=== PATIENT | female | born 1955 | race Caucasian/White ===

== ENCOUNTER → 2019-09-09 15:27 | Outpatient (CLI) | payer MEDICARE, SELFPAY ==
--- NOTE | ~2019-09-09 | MR_ITS ---
EXAMINATION: MR brain IAC wo/w con DATE: 09/09/2019 17:14 INDICATION: Dizziness and giddiness. TECHNIQUE: Magnetic resonance imaging (MRI) of the brain, brainstem, and internal auditory canals was performed without and with 15 mL MultiHance intravenous contrast. Sequences included sagittal and ax ial T1-weighted FSE, axial diffusion-weighted FS EPI, axial T2*-weighted GRE, axial T2-weighted FLAIR Propeller, axial T2-weighted Propeller, small kvoty-ix-uvvt coronal FIESTA, small zgwqx-ae-sjwh prem nal T1-weighted FSE, and small saaej-zj-oean axial T1-weighted SPGR. Postcontrast sequences included axial T1-weighted FSE, small cahkq-mu-iial coronal T1-weighted FSE, and small szjgx-ri-btmd axial T1- weighted SPGR. Apparent diffusion coefficient (ADC) maps were created. COMPARISON: None. FINDINGS: There are scattered areas of nonspecific increased T2-weighted signal intensity in the cere bral white matter, which is within normal limits for the patient's age. There is no intracranial hemo rrhage, acute infarction, or abnormal intracranial mass lesion. The ventricles are normal in size. Th ere is mild mucosal thickening in the ethmoid sinuses. The orbits are normal. The internal auditory c anals and inner ears are normal. There is a trace left mastoid effusion. IMPRESSION: 1. Normal aging brain. Reviewed, dictated and finalized at location A. GER STUDY IMPRESSION: 1. Normal aging brain.
[2019-09-09 16:17] LABS: Blood Urea Nitrogen 14 mg/dL (8-26); Estimated Glomerular Filt Rate > 60
== END ==
PROVIDERS: PCP Family Medicine; Visit Provider Otolaryngology
DX: R42 Dizziness and giddiness (principal)
CPT/HCPCS: 70553; A9577

== ENCOUNTER → 2020-10-27 09:45 | Outpatient (CLI) | payer MEDICARE, SELFPAY ==
--- NOTE | ~2020-10-27 | MR_ITS ---
EXAMINATION: MR shoulder RT wo con DATE: 10/27/2020 10:49 INDICATION: Right shoulder pain radiating down the right arm TECHNIQUE: Magnetic resonance imaging (MRI) of the right shoulder was performed without intravenous c ontrast. Sequences included axial PD-weighted FS FSE, coronal oblique PD-weighted FS FSE, coronal obl ique T2-weighted FS FSE, sagittal PD-weighted FS FSE, and sagittal T1-weighted SE. COMPARISON: None. FINDINGS: Mild motion artifact or blurring on a few sequences. Coracoacromial arch: The acromion undersurface is curved in morphology (type II). The coracoacromial ligament is normal. M oderate acromioclavicular osteoarthritis. Rotator cuff: Moderate supraspinatus and mild infraspinatus tendinopathy without discrete tear. The teres minor ten don is normal. Mild subscapularis tendinopathy without discrete tear. Normal rotator cuff muscle bulk and signal. Biceps tendon, glenoid labrum and glenohumeral cartilage: Long head of the biceps tendon is normal. Glenoid labrum is normal. Glenohumeral cartilage is normal. Fluid: Physiologic amount of fluid in the glenohumeral joint and biceps tendon sheath. No loose osteochondra l bodies. Small amount of fluid in the subcoracoid bursa consistent with mild bursitis. Bones: Normal marrow signal with no edema, fracture or abnormal marrow replacing process. Mild cystic change at the anterior and posterior aspect of the greater tuberosity. IMPRESSION: 1. Moderate supraspinatus and mild infraspinatus and subscapularis tendinopathy without discrete tear . 2. Moderate acromioclavicular osteoarthritis. 3. Mild subcoracoid bursitis. Reviewed, dictated and finalized at location A. IMPRESSION: 1. Moderate supraspinatus and mild infraspinatus and subscapularis tendinopathy without discrete tear. 2. Moderate acromioclavicular osteoarthritis. 3. Mild subcoracoid bursitis.
== END ==
DX: M19.011 Primary osteoarthritis, right shoulder (principal); M75.51 Bursitis of right shoulder
CPT/HCPCS: 73221

== ENCOUNTER → 2021-06-13 08:53 | Outpatient (REF) | payer MEDICARE, SELFPAY | LOC: ANHLAB 08:53 | PROVIDERS: Visit Provider Nurse Practitioner | DX: L72.0 Epidermal cyst (principal) | CPT/HCPCS: 88304 ==

== ENCOUNTER 2022-04-26 08:08 | Outpatient (CLI) | payer MEDICARE, SELFPAY ==
--- NOTE | ~2022-04-26 | MR_ITS ---
EXAMINATION: MR lumbar spine wo con DATE: 04/26/2022 08:55 INDICATION: Chronic low back pain. TECHNIQUE: Magnetic resonance imaging (MRI) of the lumbar spine was performed without intravenous con trast. Sequences included sagittal T2-weighted FSE, sagittal T2-weighted FS FSE, sagittal T1-weighted FSE, and axial T2-weighted FSE. COMPARISON: None FINDINGS: There is 11 degrees dextroscoliosis of lumbar spine. There is 5 mm retrolisthesis of L1 on L2, 4 mm retrolisthesis of L2 on L3, and 2 mm anterolisthesis of L3 on L4 and L4 on L5. Vertebral bod y heights are normal. There is severely decreased disc height at L1-L2, moderately decreased disc hei ght at L2-L3, and mildly decreased disc height at L3-L4 and L4-L5. The distal spinal cord signal inte nsity is normal. The conus medullaris is at T12-L1. The following disc levels are specifically discus sed: L1-L2: The disc is bulging. There is severe bilateral facet joint osteoarthritis. There is moderate r ight and severe left neural foraminal stenosis. There is mild central canal stenosis. L2-L3: The disc is bulging. There is moderate bilateral facet joint osteoarthritis. There is moderate bilateral neural foraminal stenosis. There is mild central canal stenosis. L3-L4: The disc is bulging and has an annular fissure. There is severe bilateral facet joint osteoart hritis. There is mild bilateral neural foraminal stenosis. There is mild central canal stenosis. L4-L5: The disc is bulging and has an annular fissure. There is severe bilateral facet joint osteoart hritis. There is moderate bilateral neural foraminal stenosis. There is moderate central canal stenos is. L5-S1: The disc is bulging and has an annular fissure. There is severe bilateral facet joint osteoart hritis. There is mild bilateral neural foraminal stenosis. There is mild central canal stenosis. IMPRESSION: 1. Severe lumbar spondylosis. 2. Lumbar dextroscoliosis. Reviewed, dictated and finalized at location A.
== END 2022-04-26 08:09 ==
PROVIDERS: PCP Family Medicine
DX: M47.817 Spondylosis without myelopathy or radiculopathy, lumbosacral region (principal); M48.07 Spinal stenosis, lumbosacral region; M41.9 Scoliosis, unspecified
CPT/HCPCS: 72148

== ENCOUNTER → 2023-05-13 15:40 | Outpatient (CLI) | payer MEDICARE, SELFPAY ==
--- NOTE | ~2023-05-13 | XR_ITS ---
EXAMINATION: XR hand BI arthritis min 3V DATE: 05/13/2023 16:19 INDICATION: Primary osteoarthritis TECHNIQUE: Posteroanterior, lateral, and oblique views of the left and of the right hands as well as a ballcatchers view of both hands were obtained. COMPARISON: None. FINDINGS: Left hand: Bone alignment is normal. There is no fracture. There is advanced osteoarthritis at the fi fth distal interphalangeal joint. Uzgm-ra-joambzyz osteoarthritis is noted in multiple additional int erphalangeal joints. There is mild osteoarthritis at the first metacarpophalangeal joint. No abnormal erosions are identified. The soft tissues are unremarkable. Right hand: There is advanced osteoarthritis at the third, fourth, and fifth distal interphalangeal j oints. There are erosions in the third middle phalanx and third distal phalanx abutting the joint spa ce. There is no fracture. There is mild to moderate osteoarthritis and multiple additional interphala ngeal joints. Mild osteoarthritis is noted at the first metacarpophalangeal joint. The soft tissues a re unremarkable. IMPRESSION: 1. Polyarticular osteoarthritis, worst in the third through fifth distal interphalangeal joints of th e right hand and the fifth distal interphalangeal joint of the left hand. Reviewed, dictated and finalized at location F. IMPRESSION: 1. Polyarticular osteoarthritis, worst in the third through fifth distal interp halangeal joints of the right hand and the fifth distal interphalangeal joint o f the left hand.
== END ==
PROVIDERS: PCP Physician Assistant; Visit Provider Physician Assistant
DX: M15.9 Polyosteoarthritis, unspecified (principal)
CPT/HCPCS: 73130

== ENCOUNTER 2023-10-27 12:51 | Outpatient (CLI) | payer MEDICARE, SELFPAY ==
--- NOTE | ~2023-10-27 | MR_ITS ---
EXAMINATION: MR lumbar spine wo con DATE: 10/27/2023 13:29 INDICATION: Left-sided low back pain. TECHNIQUE: Magnetic resonance imaging (MRI) of the lumbar spine was performed without intravenous con trast. Sequences included sagittal T2-weighted FSE, sagittal T2-weighted FS FSE, sagittal T1-weighted FSE, and axial T2-weighted FSE. COMPARISON: Lumbar spine MRI 04/26/2022 FINDINGS: There is 16 degrees dextroscoliosis of lumbar spine. There is 5 mm retrolisthesis of L1 on L2 and L2 on L3. There is 3 mm anterolisthesis of L4 on L5. Vertebral body heights are normal. There is severely decreased disc height at L1-L2 and L2-L3 and mildly decreased disc height at L3-L4 and L4 -L5. The distal spinal cord signal intensity is normal. The conus medullaris is at L1. The following disc levels are specifically discussed: L1-L2: The disc is bulging. There is severe bilateral facet joint osteoarthritis. There is moderate r ight and severe left neural foraminal stenosis. There is mild central canal stenosis. L2-L3: The disc is bulging and has an annular fissure. There is severe right and moderate left facet joint osteoarthritis. There is moderate bilateral neural foraminal stenosis. There is mild central ca nal stenosis. L3-L4: The disc is bulging and has an annular fissure. There is severe bilateral facet joint osteoart hritis. There is mild bilateral neural foraminal stenosis. There is moderate central canal stenosis. L4-L5: The disc is bulging and has an annular fissure. There is severe bilateral facet joint osteoart hritis. There is moderate bilateral neural foraminal stenosis. There is moderate central canal stenos is. L5-S1: The disc is bulging. There is severe bilateral facet joint osteoarthritis. There is mild bilat eral neural foraminal stenosis. There is mild central canal stenosis. IMPRESSION: 1. Severe lumbar spondylosis, worsened at L2-L3 from 04/26/2022. 2. Lumbar dextroscoliosis. Reviewed, dictated and finalized at location A.
== END 2023-10-27 12:52 ==
LOC: MICIMG 12:52
PROVIDERS: PCP Family Medicine
DX: M47.896 Other spondylosis, lumbar region (principal)
CPT/HCPCS: 72148

== ENCOUNTER 2024-11-09 00:18 | Day surgery (SDC) | payer MEDICARE, SELFPAY ==
[2024-11-02 10:04] VITALS: BMI 30.4
--- OUTSIDE RECORDS SUMMARY | 2024-11-09 00:21 | XMS_ITS | Encounter Summary ---
Author Organization [facility] Address [address] [place] [address] Care Team Providers Care Water Treatment Specialist Name Role Phone Casey Dudley MD Primary Care Provider [phone] Encounter Details Date Type Department Care Team (Late st Contact Info) Description 06/12/2005 Outpatient Historical [facility] 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 Gender Identity Not on file Sexual Orientation Not on file documented as of this encounter Plan of Treatment Upcoming Encounters Date Type Department Care Team (Late st Contact Info) Description 10/24/2025 10:30 AM CDT Office Visit [facility] [address] [place] [address] [place] [id number] Amol Sharma MD [address] [place] [address] documented as of this encounter Visit Diagnoses Not on filedocumented in this encounter Care Teams Water Treatment Specialist Relationship Specialty Start Date End Date Casey Dudley MD PCP - General Family Practice 10/15/11 documented as of this encounter
--- OUTSIDE RECORDS SUMMARY | 2024-11-09 00:21 | XMS_ITS | Encounter Summary ---
Author Organization [facility] Address [address] [place] [address] Care Team Providers Care Machine Binder Stripper Name Role Phone Casey Dudley MD Primary Care Provider [phone] Encounter Details Date Type Department Care Team (Late st Contact Info) Description 06/11/2005 Outpatient Historical [facility] [address] 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 Gender Identity Not on file Sexual Orientation Not on file documented as of this encounter Plan of Treatment Upcoming Encounters Date Type Department Care Team (Late st Contact Info) Description 10/24/2025 10:30 AM CDT Office Visit [facility] [address] [place] [address] [address] [place] [address] Amol Sharma MD [address] [place] [address] documented as of this encounter Visit Diagnoses Not on filedocumented in this encounter Care Teams Machine Binder Stripper Relationship Specialty Start Date End Date Casey Dudley MD PCP - General Family Practice 10/15/11 documented as of this encounter
--- OUTSIDE RECORDS SUMMARY | 2024-11-09 00:21 | XMS_ITS | Referral Summary ---
Author Organization [facility] Address [address] [place] [address] Care Team Providers Care School Bus Driver/Mechanic Name Role Phone Casey Dudley MD Primary Care Provider Encounters Date Type Department Care Team Description 10/25/2024 Telephone [facility] Scheduling [address] [place] [address] Romana Davidson 08/16/2024 3:00 PM BILINGUAL SOCIAL WORKER Office Visit [facility] Neurosurgery [address] [facility] [address] [place] [address] Amol Mattson DO Spinal stenosis of lumbar region with neurogenic claudication (Primary Dx); Foraminal stenosis of lumbar region; Lumbar pain; Weakness of right lower extremity from Last 3 Months Allergies Active Allergy Reactions Criticality Noted Date Comments Diclofenac Blisters High 02/20/2023 Medications atorvastatin (LIPITOR) 20 mg tabletIndication s:hyperlipidemia Take 1 tablet (20 mg total) by mouth every morning 9 Active dilTIAZem XR (dilTIAZem XR) 240 mg 24 hr capsuleIndicatio ns:Angina,hypert ension Take 1 capsule (240 mg total) by mouth every morning 8 Active enalapril (VASOTEC) 5 mg tabletIndication s:hypertension Take 1 tablet (5 mg total) by mouth every morning 8 Active omeprazole (PriLOSEC) 20 mg capsuleIndicatio ns:Treatment of Non-Bleeding Gastric Disorder Take 1 capsule (20 mg total) by mouth every morning 2 9 Active turmeric, bulk, 95 % powderIndication s:supplement 1 Package daily as needed (supplement) Alternating with chew tab Active THYROID, BULK, MISCIndications: Actalin thyroid supplement 1 capsule 2 (two) times a day Active aspirin (ASPIR-81 ORAL)Indications :heart health & history of [place] Take 81 mg by mouth every morning Active methocarbamoL (ROBAXIN) 500 mg tabletIndication s:Muscle Spasm Take 1 tablet (500 mg total) by mouth 3 (three) times a day as needed for muscle spasms 4 Active mupirocin (BACTROBAN) 2 % ointmentIndicati ons:Methicillin- Resistant S. Aureus Nasal Colonization Apply to each nostril 2 (two) times a day Apply pea size amount into each nostril twice a day for 5 days prior to surgery. 22 g 4 Active TURMERIC ORALIndications: supplement Take 1 tablet/chew tab by mouth daily as needed (supplement) Alternating with powder Active ibuprofen-acetam inophen 125-250 mg tabletIndication s:Pain,trigemina l neurolgia Take 1 tablet by mouth 2 (two) times a day as needed (pain) Active gabapentin (NEURONTIN) 600 mg tablet Take 1.5 tablets (900 mg total) by mouth 3 (three) times a day 405 tablet 3 4 04/26/20 25 Active Additional Information Patient taking differently:900 mg oral 3 times daily,Indications: Neuropathic Pain, trigeminal neurolgia, Informant: Self, Reported on 06/15/2024 multivitamin tabletIndication s:Vitamin Deficiency Prevention Take 1 tablet by mouth civil preparedness training officer before breakfast Active cyclobenzaprine (FLEXERIL) 10 mg tabletIndication s:Muscle Spasm Take 1 tablet (10 mg total) by mouth 2 (two) times a day as needed for muscle spasms for muscle spasms 30 tablet 2 5 Active Active Problems Problem Noted Date Diagnosed Date Moderate protein-calorie malnutrition 04/15/2024 Overview (04/15/2024): Acute d/t trigeminal neuralgia Weakness of right lower extremity 03/10/2024 Spinal stenosis of lumbar re gion with neurogenic claudication 03/10/2024 Foraminal stenosis of lumbar region 03/10/2024 Impaired fasting glucose 03/23/2023 Pablito's thyroiditis 12/15/2022 Prediabetes 12/15/2022 Impacted cerumen of right ear 08/13/2021 Benign paroxysmal positional vertigo of left ear 08/08/2020 [place] (myocardial infarction) 02/27/2020 0 12/11/2022 Overview (12/11/2022): MIs with no sign obsruc ds on caths 2001, 2004 No sign obsruc ds, nl LV fxn cath (after abnormal stress test) 2008 Nl LV fxn echo 11/11 Dizzy 01/04/2020 Asymmetric SNHL (sensorineural hearing loss) 10/2019 Trigeminal neuralgia of right side of face 01/03 TMJ syndrome 01/04/2020 Cervicalgia 01/04/2020 Hyperlipemia 03/17/2019 Hypertension 03/17/2019 Type 2 diabetes mellitus 10/25/2018 History of myocardial infarction 02/17/2017 Overview (03/17/2019): MIs with no sign obsruc ds on caths 2001, 2004 Large area anterior ischemia, nl LV fxn stress 08/11 No sign obsruc ds, nl LV fxn cath 09/11 Nl LV fxn echo 11/11 Immunizations Immunization Administration Dates Next Due Influenza, Quadrivalent, Spl it, Preservative Free, Intramuscular 05/29/2017 Influenza, Trivalent, Adjuvanted, Intramuscular 05/17/2019 Influenza, Trivalent, IM (MDV) 08/06/2015 ZOSTER LIVE 05/29/2017 Social History Tobacco Use Types Packs/Day Years Used Date Smoking Tobacco: Never Passive Smoke Exposure: Past Smokeless Tobacco: Never Tobacco Cessation:Counseling Given: Not Answered Alcohol Use Standard Drinks/Week Comments Yes 0 (1 standard drink = 0.6 oz pur e alcohol) AUDIT-C Answer Date Recorded Q1: How often do you have a drink containing alc ohol? 2-4 times a month 08/16/2024 Q2: How many drinks containi ng alcohol do you have on a typical day when you are drinking? 1 or 2 08/16/2024 Q3: How often do you have si x or more drinks on one occasion? Never 08/16/2024 Personal Safety Answer Date Recorded Have you ever been in or are you currently in a harmful physical or emotional relationship or is someone making you feel afraid or unsafe? Denies 06/15/2024 Comments No Sex and Gender Information Value Date Recorded Sex Assigned at Not on file Legal Sex Female 7:02 AM BILINGUAL SOCIAL WORKER Gender Identity Not on file Sexual Orientation Not on file Last Filed Vital Signs Vital Sign Reading Time Taken Comments Blood Pressure 117/93 06/15/2024 12:20 PM BILINGUAL SOCIAL WORKER Pulse 65 06/15/2024 12:20 PM BILINGUAL SOCIAL WORKER Temperature 36 C (96.8 F) 06/15/2024 11:30 AM BILINGUAL SOCIAL WORKER Respiratory Rate 13 06/15/2024 12:20 PM BILINGUAL SOCIAL WORKER Oxygen Saturation 100% 06/15/2024 12:20 PM BILINGUAL SOCIAL WORKER Inhaled Oxygen Concentration - - Weight 84.8 kg (187 lb) 06/15/2024 8:03 AM BILINGUAL SOCIAL WORKER Height 172.7 cm (5' 8 ) 06/02/2024 10:40 AM CDT Body Mass Index 28.43 06/02/2024 10:40 AM CDT Plan of Treatment Not on file Procedures Procedure Name Priority Date/Time Associated Diagnosis Comments EGFR Routine 04/11/2024 12:09 PM CDT Spinal stenosis of lumbar region with neurogenic claudication from Last 3 Months or Most Recently Relevant to Health Maintenance Results * eGFR (04/11/2024 12:09 PM CDT) eGFR 68 >=60 mL/min/1. 73 m2 Comment: Interpretive Data Reference Interval Normal >/= 90 mL/min/1.73m2 Mildly decreased* 60 - 89 mL/min/1.73m2 Mildly to moderately decreased 45 - 59 mL/min/1.73m2 Moderately to severely decreased 30 - 44 mL/min/1.73m2 Severely decreased 15 - 29 mL/min/1.73m2 Kidney Failure < 15 mL/min/1.73m2 *Relative to young adult level Estimated glomerular filtration rate is determined by the 2020 CKD-EPI equation recommended by the National Kidney Foundation (A Unifying Approach to GFR Estimation: Recommendations of the NKF-ASK Task Force on Reassessing the Inclusion of Race in Diagnosing Kidney Disease, JASN 2020). The CKD-EPI equation should not be used for patients with unstable renal function and has not been validated in children and those over 70. Current interpretive data was last reviewed 2021. Blood 04/11/2024 12:0 9 PM CDT 04/11/2024 12:48 PM CDT Amol Mattson DO LAB BLOOD ORDERABLES Final Resu lt [facility] Department [place] [address] from Last 3 Months or Most Recently Relevant to Health Maintenance Insurance [facility] MEDICARE [facility] MEDICARE ADVANTAGE [employer] MEDICARE Care Teams School Bus Driver/Mechanic Relationship Specialty Start Date End Date Casey Dudley MD [address] [facility] [address] [place] [address] PCP - General 01/22/17
--- OUTSIDE RECORDS SUMMARY | 2024-11-09 00:21 | XMS_ITS | Encounter Summary ---
Author Organization [facility] Address 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 [address] [employer] Amol Rodriguez MD [place] [address] [facility] [address] [place] [address] Other and Unspecified Angina Pectoris Social History Tobacco Use Types Packs/Day Years Used Date Smoking Tobacco: Never Assessed Comments No Sex and Gender Information Value Date Recorded Sex Assigned at Not on file Legal Sex Female 4:26 AM OPTICAL ASSISTANT Gender Identity Not on file Sexual Orientation Not on file documented as of this encounter Plan of Treatment Upcoming Encounters Date Type Department Care Team (Late st Contact Info) Description 10/24/2025 10:30 AM CDT Office Visit [facility] [address] [facility] [address] [place] [address] Amol Sharma MD [address] [place] [address] documented as of this encounter Procedures Procedure Name Priority Date/Time Associated Diagnosis Comments CBC WITH DIFFERENTIAL Stat 09/15/2008 11:12 AM OPTICAL ASSISTANT PROTIME-INR Stat 09/15/2008 11:12 AM OPTICAL ASSISTANT BASIC METABOLIC PANEL Stat 09/15/2008 11:12 AM OPTICAL ASSISTANT documented in this encounter Results * PROTIME-INR (09/15/2008 11:12 AM OPTICAL ASSISTANT) PROTIME 13.3 12.7 - 15.1 Seconds [facility] INR 1.0 0.9 - 1.1 [facility] Comment: INR Therapeutic Range: Adult: 2.0 - 3.0 for pulmonary embolism or prophylaxis against venous thrombosis or systemic embolization. 2.0 - 3.0 for patients with tissue heart valves. 2.5 - 3.5 for patients with mechanical heart valves or post [place]. Pediatric (12 years and under): 1.5 - 3.0 Although the target range in children is not well established, INR values of 1.5 - 3.0 are recommended for most patients. Higher values have been used in children with prosthetic cardiac valves and hereditary clotting disorders. [place] (<3 days) therapeutic ranges have not been established. Blood specimen (specimen) 09/15/2008 11:12 AM OPTICAL ASSISTANT 09/15/2008 11:27 AM OPTICAL ASSISTANT Amol Rodriguez MD HEMATOLOGY ORDERABLES Final Resu lt INTERFACE SYSTEM Refer to clinic/hospital department [facility] CLIA# [id number] [address] [facility] [place] [address] * BASIC METABOLIC PANEL (09/15/2008 11:12 AM OPTICAL ASSISTANT) Pathologist [facility] CALCIUM 9.2 8.6 - 10.2 mg/dL [facility] POTASSIUM 4.0 3.5 - 4.9 mmol/L [facility] GLUCOSE 98 65 - 99 mg/dL [facility] BUN 11 6 - 20 mg/dL [facility] CHLORIDE 104 96 - 108 mmol/L [facility] SODIUM 138 135 - 145 mmol/L [facility] CREATININE 0.83 0.51 - 0.95 mg/dL [facility] CO2 28 22 - 30 mmol/L [facility] GFR, >60 >=60 mL/min/1.7 sq meter [facility] GFR >60 >=60 mL/min/1.7 sq meter [facility] Comment: Modification of Diet in Renal Disease (MDRD) study formula. Estimated GFR rate interpretative information for both Americans and non- Americans is available on the [facility] Intranet at: [email or web address] Select: Lab Policies and Procedures Select: Reference Ranges - GFR Blood specimen (specimen) 09/15/2008 11:12 AM OPTICAL ASSISTANT 09/15/2008 11:27 AM OPTICAL ASSISTANT Amol Rodriguez MD CHEMISTRY ORDERABLES Edited INTERFACE SYSTEM Refer to clinic/hospital department [facility] CLIA# [id number] [address] [facility] [address] [address] [place] [place], [place] [address] * CBC WITH DIFFERENTIAL (09/15/2008 11:12 AM OPTICAL ASSISTANT) MCHC 33.5 31.5 - 35.5 % [facility] MCV 85.8 82.0 - 99.0 fL [facility] PLATELETS 270 140 - 350 K/uL [facility] HEMOGLOBIN 13.2 11.8 - 14.8 g/dL [facility] RDW 13.5 11.5 - 14.5 % [facility] WBC 5.7 4.0 - 9.8 K/uL [facility] MCH 28.8 27.2 - 32.6 pg [facility] MPV 9.7 9.3 - 12.4 fL [facility] HEMATOCRIT 39.4 35.5 - 44.0 % [facility] RDW-STDEV 41.5 37.1 - 48.7 fL [facility] RBC 4.59 3.90 - 4.90 M/uL [facility] NEUTROPHILS 60 45 - 70 % [facility] NEUTROPHIL ABSOLUTE 3.37 1.90 - 7.00 K/uL [facility] EOSINOPHILS 2 0 - 7 % [facility] EOSINOPHIL ABSOLUTE 0.13 0.00 - 0.70 K/uL [facility] LYMPHOCYTES 31 16 - 45 % [facility] LYMPHOCYTE ABSOLUTE 1.76 0.70 - 4.50 K/uL [facility] BASOPHILS 1 0 - 2 % [facility] BASOPHILS ABSOLUTE 0.03 0.00 - 0.20 K/uL [facility] MONOCYTES 7 3 - 13 % [facility] MONOCYTE ABSOLUTE 0.37 0.10 - 1.30 K/uL [facility] Blood specimen (specimen) 09/15/2008 11:12 AM OPTICAL ASSISTANT 09/15/2008 11:27 AM OPTICAL ASSISTANT Amol Rodriguez MD HEMATOLOGY ORDERABLES Edited INTERFACE SYSTEM Refer to clinic/hospital department [facility] CLIA# [id number] [address] [place] [address] documented in this encounter Visit Diagnoses Diagnosis Other and unspecified angina pectoris documented in this encounter Care Teams Polisher Sand Relationship Specialty Start Date End Date Casey Dudley MD PCP - General Family Practice 10/15/11 documented as of this encounter
--- OUTSIDE RECORDS SUMMARY | 2024-11-09 00:21 | XMS_ITS | Data Portability ---
Author Organization [place] - [facility] [place], Main Office Address [address] [place] [address] Care Team Providers Care Skilled Nursing Professional Name Role Phone ESHA PETERSON Primary Care Provider Assessment No assessment recorded. Plan of Treatment Reminders Order Date Submit Date Provider Last Modified By Organization Details Last Modified Time Details Appointments None record ed. Lab None record ed. Referral None record ed. Procedures None record ed. Surgeries None record ed. Imaging None record ed. Medication Orders None record ed. Patient TargetsNo targets recorded. Patient InstructionsNo instructions recorded. Reason for Referral None Reported. Results Created Date Observation Date Name Description Value Unit Range Abnormal Flag Note LastModifiedBy Organization Detail LastModifiedTime 09/10/19 22 09/11/2021 HEMOG LOBIN A1C hemoglobin A1C 5.9 %_of_ total _HGB <5.7 high Not Available [email or web address] [address] [place], [address], 09/11/2021 16:58:19 09/10/19 22 09/11/2021 HEMOG LOBIN A1C copy(ies) sent to: [facility] [place] [facility] ADMN [address] [place] [address] FAMIL Y PRACT ICE BARNE TT & AGUSTÍN [address] [place] [address] Not Available [email or web address] [address] [place], [address], 09/11/2021 16:58:19 09/10/19 22 09/11/2021 T3, FREE T3, free 3.0 pg/mL 2.3-4. 2 normal Not Available [place] [address] [address] [place], [address], 09/11/2021 16:58:19 09/10/19 22 09/11/2021 T3, FREE copy(ies) sent to: [facility] CIAN [facility] LINDA [facility] ADMN [address] [place] [address] FAMIL Y PRACT ICE BARNE TT & AGUSTÍN [address] [place] [address] Not Available [facility] [place] [address] [place], [address], 09/11/2021 16:58:19 09/10/19 22 09/11/2021 VITAM IN B12/F OLATE , SERUM PANEL vitamin B12 478 pg/mL 200-11 00 normal Not Available [address] [address] [place], [address], 09/11/2021 16:58:18 09/10/19 22 09/11/2021 VITAM IN B12/F OLATE , SERUM PANEL folate, serum 21.4 NG/mL normal Refer ence Range Low: <3.4 Borde rline : 3.4-5 .4 Princess l: >5.4 Not Available [address] [address] [place], [address], 09/11/2021 16:58:18 09/10/19 22 09/11/2021 VITAM IN B12/F OLATE , SERUM PANEL copy(ies) sent to: [facility] [facility] ADMN [address] [place] [address] FAMIL Y PRACT ICE BARNE TT & AGUSTÍN [address] [place] [address] Not Available [facility] [place] [address] [place], [address], 09/11/2021 16:58:18 09/10/19 22 09/11/2021 INSUL IN insulin 20.1 uIU/m L high Refer ence Range < or = 19.6 Risk: Optim al < or = 19.6 Moder ate NA High >19.6 Adult cardi ovasc ular event risk categ ory cut point s (opti mal, moder ate, high) are based on [facility] popul ation data from 07/22 11. This insul in assay shows stron g cross -reac tivit y for some insul in analo gs (lisp ro, aspar t, and glarg ine) and much lower cross -reac tivit y with other s (dete nel, gluli sine) . Not Available [email or web address] [place] [address] [place], [address], 09/11/2021 16:58:18 09/10/19 22 09/11/2021 INSUL IN copy(ies) sent to: [facility] [facility] LINDA IJGAR [facility] ADMN [address] [facility] [place] [address] FAMIL Y PRACT ICE BARNE TT & AGUSTÍN [address] [place] [address] Not Available [email or web address] [address] [place], [address], 09/11/2021 16:58:18 09/10/19 22 09/11/2021 THYRO ID PEROX IDASE ANTIB ODIES thyroid peroxidase antibodies <1 IU/mL <9 normal Not Available [email or web address] [place] [address] [address] [place], [address], 09/11/2021 16:58:18 09/10/19 22 09/11/2021 THYRO ID PEROX IDASE ANTIB ODIES copy(ies) sent to: [facility] [place] [facility]ON [facility]I LIDNA [facility] ADMN [address] [place] [address] FAMIL Y PRACT ICE BARNE TT & AGUSTÍN [address] [place] [address] Not Available [address] [address] [place], [address], 09/11/2021 16:58:18 09/10/19 22 09/11/2021 COMPR EHENS STEVE METAB OLIC PANEL glucose 109 mg/dL 65-99 high Fasti ng refer ence inter mark For someo ne witho ut known diabe andrew, a gluco se value betwe en 100 and 125 mg/dL is consi stent with predi abete s and shoul d be confi rmed with a follo w-up test. Not Available [address], [address], 09/11/2021 16:58:17 09/10/19 22 09/11/2021 COMPR EHENS STEVE METAB OLIC PANEL urea nitrogen (BUN) 16 mg/dL 7-25 normal Not Available [address], [address], 09/11/2021 16:58:17 09/10/19 22 09/11/2021 COMPR EHENS STEVE METAB OLIC PANEL creatinine 0.70 mg/dL 0.50-0 .99 normal For patie nts >49 years of age, the refer ence limit for Creat inine is appro ximat digna 13% highe r for peopl e ident ified as Afric an-Am fadia n. Not Available [address] [address] [place], [address], 09/11/2021 16:58:17 09/10/19 22 09/11/2021 COMPR EHENS STEVE METAB OLIC PANEL eGFR non-afr. jamaican 89 mL/mi n/1.7 3m2 > or = 60 normal Not Available [facility] [place] [address] [address] [place], [address], 09/11/2021 16:58:17 09/10/19 22 09/11/2021 COMPR EHENS STEVE METAB OLIC PANEL eGFR 103 mL/mi n/1.7 3m2 > or = 60 normal Not Available [address], [address], 09/11/2021 16:58:17 09/10/19 22 09/11/2021 COMPR EHENS STEVE METAB OLIC PANEL BUN/creatini ne ratio not applic able (calc ) 6-22 Not Available [address], [address], 09/11/2021 16:58:17 09/10/19 22 09/11/2021 COMPR EHENS STEVE METAB OLIC PANEL sodium 139 mmol/ L 135-14 6 normal Not Available [address], [address], 09/11/2021 16:58:17 09/10/19 22 09/11/2021 COMPR EHENS STEVE METAB OLIC PANEL potassium 4.3 mmol/ L 3.5-5. 3 normal Not Available [address], [address], 09/11/2021 16:58:17 09/10/19 22 09/11/2021 COMPR EHENS STEVE METAB OLIC PANEL chloride 104 mmol/ L 98-110 normal Not Available [address], [address], 09/11/2021 16:58:17 09/10/19 22 09/11/2021 COMPR EHENS STEVE METAB OLIC PANEL carbon dioxide 29 mmol/ L 20-32 normal Not Available [address], [address], 09/11/2021 16:58:17 09/10/19 22 09/11/2021 COMPR EHENS STEVE METAB OLIC PANEL calcium 8.9 mg/dL 8.6-10 .4 normal Not Available [address], [address], 09/11/2021 16:58:17 09/10/19 22 09/11/2021 COMPR EHENS STEVE METAB OLIC PANEL protein, total 6.2 g/dL 6.1-8. 1 normal Not Available [address], [address], 09/11/2021 16:58:17 09/10/19 22 09/11/2021 COMPR EHENS TSEVE METAB OLIC PANEL albumin 4.0 g/dL 3.6-5. 1 normal Not Available [address], [address], 09/11/2021 16:58:17 09/10/19 22 09/11/2021 COMPR EHENS STEVE METAB OLIC PANEL globulin 2.2 g/dL_ (calc ) 1.9-3. 7 normal Not Available [address], [address], 09/11/2021 16:58:17 09/10/19 22 09/11/2021 COMPR EHENS STEVE METAB OLIC PANEL albumin/glob ulin ratio 1.8 (calc ) 1.0-2. 5 normal Not Available [address], [address], 09/11/2021 16:58:17 09/10/19 22 09/11/2021 COMPR EHENS STEVE METAB OLIC PANEL bilirubin, total 0.6 mg/dL 0.2-1. 2 normal Not Available [address], [address], 09/11/2021 16:58:17 09/10/19 22 09/11/2021 COMPR EHENS STEVE METAB OLIC PANEL alkaline phosphatase 52 U/L 37-153 normal Not Available [address], [address], 09/11/2021 16:58:17 09/10/19 22 09/11/2021 COMPR EHENS STEVE METAB OLIC PANEL AST 13 U/L 10-35 normal Not Available [address] [address] [place], [address], 09/11/2021 16:58:17 09/10/19 22 09/11/2021 COMPR EHENS STEVE METAB OLIC PANEL ALT 15 U/L 6-29 normal Not Available [address] [address] [place], [address], 09/11/2021 16:58:17 09/10/19 22 09/11/2021 COMPR EHENS STEVE METAB OLIC PANEL copy(ies) sent to: [facility] PHYSI ODILON SERVI LINDA [facility] J[facility] ADMN [address] [place] [address] FAMIL Y PRACT ICE BARNE TT & AGUSTÍN [address] [place] [address] Not Available [place] [address] [facility] [place], [address], 09/11/2021 16:58:17 09/10/19 22 09/11/2021 LIPID PANEL , STAND YAHIR non HDL cholesterol 107 mg/dL _(sari c) <130 normal For patie nts with diabe andrew plus 1 major ASCVD risk facto r, treat ing to a non-H DL-C goal of <100 mg/dL (LDL- C of <70 mg/dL ) is consi jaime tam optio n. Not Available [address] [address] [place], [address], 09/11/2021 16:58:17 09/10/19 22 09/11/2021 LIPID PANEL , STAND YAHIR cholesterol, total 169 mg/dL <200 normal Not Available [address] [address] [place], [address], 09/11/2021 16:58:17 09/10/19 22 09/11/2021 LIPID PANEL , STAND YAHIR HDL cholesterol 62 mg/dL > or = 50 normal Not Available [facility] [place] [address] [address]ratio n, [place], [address], 09/11/2021 16:58:17 09/10/19 22 09/11/2021 LIPID PANEL , STAND YAHIR triglyceride s 54 mg/dL <150 normal Not Available [facility] [address] [address]ratio n, [place], [address], 09/11/2021 16:58:17 09/10/19 22 09/11/2021 LIPID PANEL , STAND YAHIR LDL-choleste rol 93 mg/dL _(sari c) normal Refer ence range : <100 Staci able range <100 mg/dL for prima ry preve ntion ; <70 mg/dL for patie nts with CHD or diabe tic patie nts with > or = 2 CHD risk facto rs. LDL-C is now calcu lated using the Nika n-Hop kins calcu lucho n, which is a valid ated novel kino d feliciano groveste r accur acy than the Fried eloy equat ion in the estim ation of LDL-C . Nika stoner SS et al. OLGA. 2013; 310(1 9): 2061- 2068 (http ://ed ucati on.TRIRIGA. LYYN/f aq/FA Q164) Not Available [address] [address] [address] n, [place], [address], 09/11/2021 16:58:17 09/10/19 22 09/11/2021 LIPID PANEL , STAND YAHIR chol/HDLC ratio 2.7 (calc ) <5.0 normal Not Available [facility] [address] [address] , [place], [address], 09/11/2021 16:58:17 09/10/19 22 09/11/2021 LIPID PANEL , STAND YAHIR copy(ies) sent to: [facility] [place] [facility]ON [facility] LINDA [facility] ADMN [address] [place] [address] FAMIL Y PRACT ICE BARNE TT & AGUSTÍN [address] [place] [address] Not Available [facility] [place] [address] [place], [address], 09/11/2021 16:58:17 09/10/19 22 09/11/2021 TSH+F REE T4 TSH 2.24 mIU/L 0.40-4 .50 normal Not Available [facility] [place] [address] [address] [place], [address], 09/11/2021 16:58:19 09/10/19 22 09/11/2021 TSH+F REE T4 T4, free 1.1 NG/dL 0.8-1. 8 normal Not Available [facility] [place] [address] [address] [place], [address], 09/11/2021 16:58:19 09/10/19 22 09/11/2021 TSH+F REE T4 copy(ies) sent to: [facility] [place] [facility] ADMN [address] [place] [address] FAMIL Y PRACT ICE BARNE TT & AGUSTÍN [address] [place] [address] Not Available [address], [address], 09/11/2021 16:58:19 12/04/19 22 12/04/2021 HEMOG LOBIN A1C hemoglobin A1C 5.7 %_of_ total _HGB <5.7 high For someo ne witho ut known diabe andrew, a hemog lobin A1c value betwe en 5.7% and 6.4% is consi stent with predi abete s and shoul d be confi rmed with a follo w-up test. For someo ne with known diabe andrew, a value <7% indic ates that their diabe andrew is well contr olled . A1c targe ts shoul d be indiv idual ized based on durat ion of diabe andrew, age, comor bid condi tions , and other consi derat ions. This assay resul t is consi stent with an incre ased risk of diabe andrew. Curre ntly, no conse nsus exist s cande rothman use of hemog lobin A1c for diagn osis of diabe andrew for child aaron. Not Available [address], [address], 12/04/2021 17:42:05 12/04/19 22 12/04/2021 HEMOG LOBIN A1C copy(ies) sent to: [facility] [place] [facility] ADMN [address] [place] [address] Not Available [address] [place], [address], 12/04/2021 17:42:05 12/04/19 22 12/04/2021 TSH+F REE T4 TSH 3.42 mIU/L 0.40-4 .50 normal Not Available [address] [place], [address], 12/04/2021 17:42:04 12/04/19 22 12/04/2021 TSH+F REE T4 T4, free 1.0 NG/dL 0.8-1. 8 normal Not Available [address] [place], [address], 12/04/2021 17:42:04 12/04/19 22 12/04/2021 TSH+F REE T4 copy(ies) sent to: [facility] [place] [facility] ADMN [address] [place] [address] Not Available [address], [address], 12/04/2021 17:42:04 12/04/19 22 12/04/2021 T3, FREE copy(ies) sent to: [facility] [place] [facility] ADMN [address] [facility] [place] [address] Not Available [facility] [address] [address] [place], [address], 12/04/2021 17:42:04 12/04/19 22 12/04/2021 T3, FREE T3, free 3.5 pg/mL 2.3-4. 2 normal Not Available [facility] [place] [address] [address] [place], [address], 12/04/2021 17:42:04 12/04/19 22 12/04/2021 INSUL IN insulin 13.2 uIU/m L normal Refer ence Range < or = 19.6 Risk: Optim al < or = 19.6 Moder ate NA High >19.6 Adult cardi ovasc ular event risk categ ory cut point s (opti mal, moder ate, high) are based on [facility] popul ation data from 07/22 11. This insul in assay shows stron g cross -reac tivit y for some insul in analo gs (lisp ro, aspar t, and glarg ine) and much lower cross -reac tivit y with other s (dete nel, gluli sine) . Not Available [facility] [place] [address] [place], [address], 12/04/2021 17:42:04 12/04/19 22 12/04/2021 INSUL IN copy(ies) sent to: [facility] [place] [facility] ADMN [address] [place] [address] Not Available [facility] [place] [address] [address] [place], [address], 12/04/2021 17:42:04 12/04/19 22 12/04/2021 THYRO ID PEROX IDASE ANTIB ODIES thyroid peroxidase antibodies <1 IU/mL <9 normal Not Available [facility] [place] [address] [place], [address], 12/04/2021 17:42:03 12/04/19 22 12/04/2021 THYRO ID PEROX IDASE ANTIB ODIES copy(ies) sent to: [facility] [place] [facility]ON [facility]I LINDA [facility]P ADMN [address] [place] [address] Not Available [address] [address] [place], [address], 12/04/2021 17:42:03 12/04/19 22 12/04/2021 COMPR EHENS STEVE METAB OLIC PANEL BUN/creatini ne ratio not applic able (calc ) 6-22 Not Available [address], [address], 12/04/2021 17:42:03 12/04/19 22 12/04/2021 COMPR EHENS STEVE METAB OLIC PANEL glucose 106 mg/dL 65-99 high Fasti ng refer ence inter mark For someo ne witho ut known diabe andrew, a gluco se value betwe en 100 and 125 mg/dL is consi stent with predi abete s and shoul d be confi rmed with a follo w-up test. Not Available [address] [address] [facility] [place], [address], 12/04/2021 17:42:03 12/04/19 22 12/04/2021 COMPR EHENS STEVE METAB OLIC PANEL urea nitrogen (BUN) 11 mg/dL 7-25 normal Not Available [address] [address] [place], [address], 12/04/2021 17:42:03 12/04/19 22 12/04/2021 COMPR EHENS STEVE METAB OLIC PANEL creatinine 0.90 mg/dL 0.50-0 .99 normal For patie nts >49 years of age, the refer ence limit for Creat inine is appro ximat digna 13% highe r for peopl e ident ified as Afric an-Am fadia n. Not Available [address], [address], 12/04/2021 17:42:03 12/04/19 22 12/04/2021 COMPR EHENS STEVE METAB OLIC PANEL eGFR non-afr. jamaican 66 mL/mi n/1.7 3m2 > or = 60 normal Not Available [address], [address], 12/04/2021 17:42:03 12/04/19 22 12/04/2021 COMPR EHENS STEVE METAB OLIC PANEL eGFR 76 mL/mi n/1.7 3m2 > or = 60 normal Not Available [address], [address], 12/04/2021 17:42:03 12/04/19 22 12/04/2021 COMPR EHENS STEVE METAB OLIC PANEL sodium 141 mmol/ L 135-14 6 normal Not Available [address], [address], 12/04/2021 17:42:03 12/04/19 22 12/04/2021 COMPR EHENS STEVE METAB OLIC PANEL potassium 4.2 mmol/ L 3.5-5. 3 normal Not Available [address], [address], 12/04/2021 17:42:03 12/04/19 22 12/04/2021 COMPR EHENS STEVE METAB OLIC PANEL chloride 106 mmol/ L 98-110 normal Not Available [address], [address], 12/04/2021 17:42:03 12/04/19 22 12/04/2021 COMPR EHENS STEVE METAB OLIC PANEL carbon dioxide 29 mmol/ L 20-32 normal Not Available [address], [address], 12/04/2021 17:42:03 12/04/19 22 12/04/2021 COMPR EHENS STEVE METAB OLIC PANEL calcium 9.0 mg/dL 8.6-10 .4 normal Not Available [address], [address], 12/04/2021 17:42:03 12/04/19 22 12/04/2021 COMPR EHENS STEVE METAB OLIC PANEL protein, total 6.2 g/dL 6.1-8. 1 normal Not Available [address], [address], 12/04/2021 17:42:03 12/04/19 22 12/04/2021 COMPR EHENS STEVE METAB OLIC PANEL albumin 3.9 g/dL 3.6-5. 1 normal Not Available [address], [address], 12/04/2021 17:42:03 12/04/19 22 12/04/2021 COMPR EHENS STEVE METAB OLIC PANEL globulin 2.3 g/dL_ (calc ) 1.9-3. 7 normal Not Available [address], [address], 12/04/2021 17:42:03 12/04/19 22 12/04/2021 COMPR EHENS STEVE METAB OLIC PANEL albumin/glob ulin ratio 1.7 (calc ) 1.0-2. 5 normal Not Available [address], [address], 12/04/2021 17:42:03 12/04/19 22 12/04/2021 COMPR EHENS STEVE METAB OLIC PANEL bilirubin, total 0.6 mg/dL 0.2-1. 2 normal Not Available [address], [address], 12/04/2021 17:42:03 12/04/19 22 12/04/2021 COMPR EHENS STEVE METAB OLIC PANEL alkaline phosphatase 56 U/L 37-153 normal Not Available [place] [address] [address] [place], [address], 12/04/2021 17:42:03 12/04/19 22 12/04/2021 COMPR EHENS STEVE METAB OLIC PANEL AST 14 U/L 10-35 normal Not Available [address], [address], 12/04/2021 17:42:03 12/04/19 22 12/04/2021 COMPR EHENS STEVE METAB OLIC PANEL ALT 10 U/L 6-29 normal Not Available [address], [address], 12/04/2021 17:42:03 12/04/19 22 12/04/2021 COMPR EHENS STEVE METAB OLIC PANEL copy(ies) sent to: [facility] [place] [facility] ADMN [address] [place] [address] Not Available [address], [address], 12/04/2021 17:42:03 12/04/19 22 12/04/2021 LIPID PANEL , STAND YAHIR cholesterol, total 157 mg/dL <200 normal Not Available [address], [address], 12/04/2021 17:42:02 12/04/19 22 12/04/2021 LIPID PANEL , STAND YAHIR HDL cholesterol 54 mg/dL > or = 50 normal Not Available [address], [address], 12/04/2021 17:42:02 12/04/19 22 12/04/2021 LIPID PANEL , STAND YAHIR triglyceride s 80 mg/dL <150 normal Not Available [address], [address], 12/04/2021 17:42:02 12/04/19 22 12/04/2021 LIPID PANEL , STAND YAHIR LDL-choleste rol 86 mg/dL _(sari c) normal Refer ence range : <100 Staci able range <100 mg/dL for prima ry preve ntion ; <70 mg/dL for patie nts with CHD or diabe tic patie nts with > or = 2 CHD risk facto rs. LDL-C is now calcu lated using the Nika n-Hop kins calcu latio n, which is a valid ated novel metho d provi ding john r accur acy than the Fried eloy equat ion in the estim ation of LDL-C . Nika stoner SS et al. OLGA. 2013; 310(1 9): 2061- 2068 (http ://ed ucati on.Qu AsicAhead. com/f aq/FA Q164) Not Available [facility] [address] [place], [address], 12/04/2021 17:42:02 12/04/19 22 12/04/2021 LIPID PANEL , STAND YAHIR chol/HDLC ratio 2.9 (calc ) <5.0 normal Not Available [facility] [address] [place], [address], 12/04/2021 17:42:02 12/04/19 22 12/04/2021 LIPID PANEL , STAND YAHIR non HDL cholesterol 103 mg/dL _(sari c) <130 normal For patie nts with diabe andrew plus 1 major ASCVD risk facto r, treat ing to a non-H DL-C goal of <100 mg/dL (LDL- C of <70 mg/dL ) is fred bazzio n. Not Available [facility] [address] [place], [address], 12/04/2021 17:42:02 12/04/19 22 12/04/2021 LIPID PANEL , STAND YAHIR copy(ies) sent to: [facility] ADMN [address] [facility] [place] [address] Not Available [address], [address], 12/04/2021 17:42:02 12/17/19 23 12/18/2022 LIPID PANEL , STAND YAHIR cholesterol, total 182 mg/dL <200 normal Not Available [address] [address] [place], [address], 12/18/2022 14:43:34 12/17/19 23 12/18/2022 LIPID PANEL , STAND YAHIR HDL cholesterol 62 mg/dL > or = 50 normal Not Available [address], [address], 12/18/2022 14:43:34 12/17/19 23 12/18/2022 LIPID PANEL , STAND YAHIR triglyceride s 54 mg/dL <150 normal Not Available [address] [address] [place], [address], 12/18/2022 14:43:34 12/17/19 23 12/18/2022 LIPID PANEL , STAND YAHIR LDL-choleste rol 106 mg/dL _(sari c) high Refer ence range : <100 Staci able range <100 mg/dL for prima ry preve ntion ; <70 mg/dL for patie nts with CHD or diabe tic patie nts with > or = 2 CHD risk facto rs. LDL-C is now calcu lated using the Nika n-Hop kins calcu latalexandra n, which is a valid ated novel kino d feliciano quiroz achank than the Fried eloy equat ion in the estim ation of LDL-C . Nika stoner SS et al. OLGA. 2013; 310(1 9): 2061- 2068 (http ://ed ucati on.Qu estDi MerryMarrys. com/f aq/FA Q164) Not Available [address], [address], 12/18/2022 14:43:34 12/17/19 23 12/18/2022 LIPID PANEL , STAND YAHIR chol/HDLC ratio 2.9 (calc ) <5.0 normal Not Available [address], [address], 12/18/2022 14:43:34 12/17/19 23 12/18/2022 LIPID PANEL , STAND YAHIR non HDL cholesterol 120 mg/dL _(sari c) <130 normal For patie nts with diabe andrew plus 1 major ASCVD risk facto r, treat ing to a non-H DL-C goal of <100 mg/dL (LDL- C of <70 mg/dL ) is consi dered a thera peuti c optio n. Not Available [facility] [address] [place], [address], 12/18/2022 14:43:34 12/17/19 23 12/18/2022 COMPR EHENS STEVE METAB OLIC PANEL glucose 113 mg/dL 65-99 high Fasti ng refer ence inter mark For someo ne witho ut known diabe andrew, a gluco se value betwe en 100 and 125 mg/dL is consi stent with predi abete s and shoul d be confi rmed with a follo w-up test. Not Available [address], [address], 12/18/2022 14:43:35 12/17/19 23 12/18/2022 COMPR EHENS STEVE METAB OLIC PANEL urea nitrogen (BUN) 17 mg/dL 7-25 normal Not Available [facility] [address] [place] [address] [place], [address], 12/18/2022 14:43:35 12/17/19 23 12/18/2022 COMPR EHENS STEVE METAB OLIC PANEL creatinine 0.75 mg/dL 0.50-1 .05 normal Not Available [address] [place], [address], 12/18/2022 14:43:35 12/17/19 23 12/18/2022 COMPR EHENS STEVE METAB OLIC PANEL eGFR 86 mL/mi n/1.7 3m2 > or = 60 normal The eGFR is based on the CKD-E PI 2020 equat ion. To calcu late the new eGFR from a previ ous Creat inine or Cysta tin C resul t, go to https :[email or web address] saenz.simon velarde/nilson goldsmithal s/ kdoqi /gfr% 5Fcal culat or Not Available [address], [address], 12/18/2022 14:43:35 12/17/19 23 12/18/2022 COMPR EHENS STEVE METAB OLIC PANEL BUN/creatini ne ratio NOT APPLIC ABLE (calc ) 6-22 Not Available [address], [address], 12/18/2022 14:43:35 12/17/19 23 12/18/2022 COMPR EHENS STEVE METAB OLIC PANEL sodium 140 mmol/ L 135-14 6 normal Not Available [address], [address], 12/18/2022 14:43:35 12/17/19 23 12/18/2022 COMPR EHENS STEVE METAB OLIC PANEL potassium 3.9 mmol/ L 3.5-5. 3 normal Not Available [address], [address], 12/18/2022 14:43:35 12/17/19 23 12/18/2022 COMPR EHENS STEVE METAB OLIC PANEL chloride 106 mmol/ L 98-110 normal Not Available [address], [address], 12/18/2022 14:43:35 12/17/19 23 12/18/2022 COMPR EHENS STEVE METAB OLIC PANEL carbon dioxide 27 mmol/ L 20-32 normal Not Available [address], [address], 12/18/2022 14:43:35 12/17/19 23 12/18/2022 COMPR EHENS STEVE METAB OLIC PANEL calcium 8.8 mg/dL 8.6-10 .4 normal Not Available [address], [address], 12/18/2022 14:43:35 12/17/19 23 12/18/2022 COMPR EHENS STEVE METAB OLIC PANEL protein, total 6.1 g/dL 6.1-8. 1 normal Not Available [address], [address], 12/18/2022 14:43:35 12/17/19 23 12/18/2022 COMPR EHENS STEVE METAB OLIC PANEL albumin 3.6 g/dL 3.6-5. 1 normal Not Available [address], [address], 12/18/2022 14:43:35 12/17/19 23 12/18/2022 COMPR EHENS STEVE METAB OLIC PANEL globulin 2.5 g/dL_ (calc ) 1.9-3. 7 normal Not Available [address], [address], 12/18/2022 14:43:35 12/17/19 23 12/18/2022 COMPR EHENS STEVE METAB OLIC PANEL albumin/glob ulin ratio 1.4 (calc ) 1.0-2. 5 normal Not Available [address], [address], 12/18/2022 14:43:35 12/17/19 23 12/18/2022 COMPR EHENS STEVE METAB OLIC PANEL bilirubin, total 0.8 mg/dL 0.2-1. 2 normal Not Available [address] [place], [address], 12/18/2022 14:43:35 12/17/19 23 12/18/2022 COMPR EHENS STEVE METAB OLIC PANEL alkaline phosphatase 45 U/L 37-153 normal Not Available [facility] [address], [address], 12/18/2022 14:43:35 12/17/19 23 12/18/2022 COMPR EHENS STEVE METAB OLIC PANEL AST 14 U/L 10-35 normal Not Available [address], [address], 12/18/2022 14:43:35 12/17/19 23 12/18/2022 COMPR EHENS STEVE METAB OLIC PANEL ALT 15 U/L 6-29 normal Not Available [facility] [address], [address], 12/18/2022 14:43:35 12/17/19 23 12/18/2022 THYRO ID PEROX IDASE ANTIB ODIES thyroid peroxidase antibodies <1 IU/mL <9 Not Available [address], [address], 12/18/2022 14:43:35 12/17/19 23 12/18/2022 INSUL IN insulin 19.6 uIU/m L high Refer ence Range < or = 18.4 Risk: Optim al < or = 18.4 Moder ate NA High >18.4 Adult cardi ovasc ular event risk categ ory cut point s (opti mal, moder ate, high) are based on Insul in Refer ence Inter mark studi es perfo [facility]med at [facility] in 2021. Not Available [facility] [address], [address], 12/18/2022 14:43:36 12/17/19 23 12/18/2022 T3, FREE T3, free 3.1 pg/mL 2.3-4. 2 normal Not Available [email or web address] [address] [address] [place], [address], 12/18/2022 14:43:37 12/17/1912/18/2022 TSH+F REE T4 TSH 2.77 mIU/L 0.40-4 .50 normal Not Available [facility] [address] [address] [place], [address], 12/18/2022 14:43:38 12/17/19 23 12/18/2022 TSH+F REE T4 T4, free 1.0 NG/dL 0.8-1. 8 normal Not Available [facility] [address] [address] [place], [address], 12/18/2022 14:43:38 12/17/1912/18/2022 HEMOG LOBIN A1C hemoglobin A1C 6.0 %_of_ total _HGB <5.7 high For someo ne witho ut known diabe andrew, a hemog lobin A1c value betwe en 5.7% and 6.4% is consi stent with predi abete s and shoul d be confi rmed with a follo w-up test. For someo ne with known diabe andrew, a value <7% indic ates that their diabe andrew is well contr olled . A1c targe ts shoul d be indiv idual ized based on durat ion of diabe andrew, age, comor bid condi tions , and other consi derat ions. This assay resul t is consi stent with an incre ased risk of diabe andrew. Curre ntly, no conse nsus exist s regar ding use of hemog lobin A1c for diagn osis of diabe andrew for child aaron. Not Available [facility] [address] [address] [place], [address], 12/18/2022 14:43:38 03/18/2003/20/2023 LIPID PANEL , STAND YAHIR cholesterol, total 145 mg/dL <200 normal Not Available [facility] [address] [address] [place], [address], 03/20/2023 09:13:25 03/18/20 23 03/20/2023 LIPID PANEL , STAND YAHIR HDL cholesterol 52 mg/dL > or = 50 normal Not Available [facility] [address] [place], [address], 03/20/2023 09:13:25 03/18/20 23 03/20/2023 LIPID PANEL , STAND YAHIR triglyceride s 85 mg/dL <150 normal Not Available [address], [address], 03/20/2023 09:13:25 03/18/20 23 03/20/2023 LIPID PANEL , STAND YAHIR LDL-choleste rol 76 mg/dL _(sari c) normal Refer ence range : <100 Staci able range <100 mg/dL for prima ry preve ntion ; <70 mg/dL for patie nts with CHD or diabe tic patie nts with > or = 2 CHD risk facto rs. LDL-C is now calcu lated using the Nika n-Hop kins calcu lucho n, which is a valid ated novel shante santos than the Fried eloy equat ion in the estim ation of LDL-C . Nika stoner SS et al. OLGA. 2013; 310(1 9): 2061- 2068 (http ://ed ucati on.Cony mcqueen OnTheRoad. com/f aq/FA Q164) Not Available [facility] [address] [place], [address], 03/20/2023 09:13:25 03/18/20 23 03/20/2023 LIPID PANEL , STAND YAHIR chol/HDLC ratio 2.8 (calc ) <5.0 normal Not Available [facility] [address] [place] [address], [address], 03/20/2023 09:13:25 03/18/20 23 03/20/2023 LIPID PANEL , STAND YAHIR non HDL cholesterol 93 mg/dL _(sari c) <130 normal For patie nts with diabe andrew plus 1 major ASCVD risk facto r, treat ing to a non-H DL-C goal of <100 mg/dL (LDL- C of <70 mg/dL ) is consi dered a thera peuti c optio n. Not Available [address] [place], [address], 03/20/2023 09:13:25 03/18/20 23 03/20/2023 COMPR EHENS STEVE METAB OLIC PANEL glucose 106 mg/dL 65-99 high Fasti ng refer ence inter mark For someo ne witho ut known diabe andrew, a gluco se value betwe en 100 and 125 mg/dL is consi stent with predi abete s and shoul d be confi rmed with a follo w-up test. Not Available [address] [place], [address], 03/20/2023 09:13:25 03/18/2003/20/2023 COMPR EHENS STEVE METAB OLIC PANEL urea nitrogen (BUN) 12 mg/dL 7-25 normal Not Available [address], [address], 03/20/2023 09:13:25 03/18/2003/20/2023 COMPR EHENS STEVE METAB OLIC PANEL creatinine 0.70 mg/dL 0.60-1 .00 normal Not Available [address] [address] [place], [address], 03/20/2023 09:13:25 03/18/2003/20/2023 COMPR EHENS STEVE METAB OLIC PANEL eGFR 93 mL/mi n/1.7 3m2 > or = 60 normal Not Available [address], [address], 03/20/2023 09:13:25 03/18/20 23 03/20/2023 COMPR EHENS STEVE METAB OLIC PANEL BUN/creatini ne ratio SEE NOTE: (calc ) 6-22 Not Repor hamzah: BUN and Creat inine are withi n refer ence range . Not Available [address], [address], 03/20/2023 09:13:25 03/18/20 23 03/20/2023 COMPR EHENS STEVE METAB OLIC PANEL sodium 142 mmol/ L 135-14 6 normal Not Available [address], [address], 03/20/2023 09:13:25 03/18/20 23 03/20/2023 COMPR EHENS STEVE METAB OLIC PANEL potassium 4.2 mmol/ L 3.5-5. 3 normal Not Available [address], [address], 03/20/2023 09:13:25 03/18/20 23 03/20/2023 COMPR EHENS STEVE METAB OLIC PANEL chloride 106 mmol/ L 98-110 normal Not Available [address], [address], 03/20/2023 09:13:25 03/18/20 23 03/20/2023 COMPR EHENS STEVE METAB OLIC PANEL carbon dioxide 29 mmol/ L 20-32 normal Not Available [address], [address], 03/20/2023 09:13:25 03/18/20 23 03/20/2023 COMPR EHENS STEVE METAB OLIC PANEL calcium 8.8 mg/dL 8.6-10 .4 normal Not Available [address], [address], 03/20/2023 09:13:25 03/18/20 23 03/20/2023 COMPR EHENS STEVE METAB OLIC PANEL protein, total 6.2 g/dL 6.1-8. 1 normal Not Available [address] [place], [address], 03/20/2023 09:13:25 03/18/20 23 03/20/2023 COMPR EHENS STEVE METAB OLIC PANEL albumin 3.8 g/dL 3.6-5. 1 normal Not Available [address], [address], 03/20/2023 09:13:25 03/18/20 23 03/20/2023 COMPR EHENS STEVE METAB OLIC PANEL globulin 2.4 g/dL_ (calc ) 1.9-3. 7 normal Not Available [address], [address], 03/20/2023 09:13:25 03/18/20 23 03/20/2023 COMPR EHENS STEVE METAB OLIC PANEL albumin/glob ulin ratio 1.6 (calc ) 1.0-2. 5 normal Not Available [address], [address], 03/20/2023 09:13:25 03/18/20 23 03/20/2023 COMPR EHENS STEVE METAB OLIC PANEL bilirubin, total 0.6 mg/dL 0.2-1. 2 normal Not Available [address], [address], 03/20/2023 09:13:25 03/18/20 23 03/20/2023 COMPR EHENS STEVE METAB OLIC PANEL alkaline phosphatase 53 U/L 37-153 normal Not Available [facility] [address], [address], 03/20/2023 09:13:25 03/18/20 23 03/20/2023 COMPR EHENS STEVE METAB OLIC PANEL AST 15 U/L 10-35 normal Not Available [address], [address], 03/20/2023 09:13:25 03/18/20 23 03/20/2023 COMPR EHENS STEVE METAB OLIC PANEL ALT 12 U/L 6-29 normal Not Available [facility] [address], [address], 03/20/2023 09:13:25 03/18/20 23 03/20/2023 THYRO ID PEROX IDASE ANTIB ODIES thyroid peroxidase antibodies <1 IU/mL <9 Not Available [facility] [address], [address], 03/20/2023 09:13:26 03/18/2003/20/2023 INSUL IN insulin 12.4 uIU/m L normal Refer ence Range < or = 18.4 Risk: Optim al < or = 18.4 Moder ate NA High >18.4 Adult cardi ovasc ular event risk categ ory cut point s (opti mal, moder ate, high) are based on Insul in Refer ence Inter mark studi es perfo [facility]med at [facility] in 2021. Not Available [email or web address] [address], [address], 03/20/2023 09:13:26 03/18/2003/20/2023 T3, FREE T3, free 3.5 pg/mL 2.3-4. 2 normal Not Available [facility] [address], [address], 03/20/2023 09:13:26 03/18/2003/20/2023 TSH+F REE T4 TSH 3.23 mIU/L 0.40-4 .50 normal Not Available [email or web address] [address], [address], 03/20/2023 09:13:27 03/18/2003/20/2023 TSH+F REE T4 T4, free 1.0 NG/dL 0.8-1. 8 normal Not Available [email or web address] [address], [address], 03/20/2023 09:13:27 03/18/20 23 03/20/2023 HEMOG LOBIN A1C hemoglobin A1C 5.7 %_of_ total _HGB <5.7 high For someo ne witho ut known diabe andrew, a hemog lobin A1c value betwe en 5.7% and 6.4% is consi stent with predi abete s and shoul d be confi rmed with a follo w-up test. For someo ne with known diabe andrew, a value <7% indic ates that their diabe andrew is well contr olled . A1c targe ts shoul d be indiv idual ized based on durat ion of diabe andrew, age, comor bid condi tions , and other consi derat ions. This assay resul t is consi stent with an incre ased risk of diabe andrew. Curre ntly, no conse nsus exist s regar lorna use of hemog lobin A1c for diagn osis of diabe andrew for child aaron. Not Available [email or web address] [facility] [address] [place], [address], 03/20/2023 09:13:27 Result Notes None recorded. Problems Name Problem SNOMED Code Status Onset Date Resolution Date Notes Provider Name and Address Organization Details Recorded Time Hypertensi ve disorder 08001126 Active 2018 Not Available [facility] 3 02:48:32 Type 2 diabetes mellitus 26782297 Completed 201810/22/2020 Not Available [facility] 3 02:48:32 Hyperlipid emia 90063898 Active 2018 Not Available [facility] 3 02:48:32 Prediabete s 671978520 Active 2022 DONY Groves, [facility] [employer] [facility] 3 13:01:17 Pablito thyroiditi s 08045633 Active 2022 Chelsy Kelsey CMA null, [facility] [employer] [facility] 3 13:01:38 Impaired fasting glycemia 068402152 Active 2022 Nalini Burger MD [address] [place] [address] Mihaela, [address], [place], [address] , [facility] 3 12:54:36 Problem Notes None recorded. Procedures Surgical History Date Name Laterality Status Provider Name and Address Organization Details Recorded Time cholecystectomy completed Not Available [facility] 10/01/2022 02:42:54 excision of bunion completed Not Available [facility] 10/01/2022 02:42:54 Imaging Results None recorded. Procedure Notes None recorded. Medical Equipment None Reported. Allergies Allergen ID Allergen Name Allergen Category Reaction Reaction Severity Criticality Documentation Date Start Date Code Code System Note Provider Name and Address Organization Details Recorded Time 71483 diclofena c Not available Not available Not available Not available 03/23/2023 3355 RxNorm Kim Collazo RN [facility], [place] [employer] [facility] 3 11:10:47 Medications Name Sig Start Date Stop Date Status Note LastModified by Organization Details LastModified Time cyclobenzap rine 10 mg tablet 10/25 completed Not Available Not Available Not Available gabapentin 600 mg tablet twice daily active Not Available Not Available No t Available atorvastati n 20 mg tablet TAKE 1 TABLET BY MOUTH DAILY active Not Available Not Available No t Available clindamycin HCl 300 mg capsule TK ONE C PO Q 6 H UNTIL GONE 05/13 completed Not Available Not Available Not Available diltiazem ER (XR/XT) 240 mg capsule,ext ended release 24 hr, controlled TAKE 1 CAPSULE BY MOUTH EVERY DAY active Not Available Not Available No t Available enalapril maleate 5 mg tablet TAKE 1 TABLET BY MOUTH DAILY active Not Available Not Available No t Available cetirizine 10 mg tablet TK 1 T PO QAM active Not Available Not Available No t Available atorvastati n 10 mg tablet TK 1 T PO D 10/25 completed Not Available Not Available Not Available azithromyci n 250 mg tablet TAKE DIRECTED 03/23 completed Not Available Not Available Not Available ibuprofen 800 mg tablet TK 1 T PO Q 6 H PRN P 03/23 completed Not Available Not Available Not Available diltiazem CD 240 mg capsule,ext ended release 24 hr Take 1 capsule every day by oral route. 10/25 completed Not Available Not Available Not Available carbamazepi ne ER 100 mg tablet,exte nded release,12 hr Take 1 tablet every 12 hours by oral route before meals for 30 days. 03/23 completed Not Available Not Available Not Available phenazopyri dine 200 mg tablet TK 1 T PO TID PRN 01/26 completed Not Available Not Available Not Available ondansetron HCl 4 mg tablet TK 1 T PO Q 8 H PRN N OR VOM 10/22 completed Not Available Not Available Not Available tramadol 50 mg tablet TK 1 T PO UP TO BID 01/26 completed Not Available Not Available Not Available amoxicillin 500 mg tablet 03/23 completed Not Available Not Available Not Available meloxicam 7.5 mg tablet active Not Available Not Available Not Available amoxicillin 875 mg tablet TK 1 T PO Q 12 H TAT 03/23 completed Not Available Not Available Not Available lorazepam 0.5 mg tablet TAKE 1 TABLET BY MOUTH EVERY 8 HOURS NEEDED FOR ANXIETY 10/22 completed Not Available Not Available Not Available ciprofloxac in 0.3 % eye drops 03/23 completed Not Available Not Available Not Available meclizine 25 mg tablet TK 1 T PO TID PRF DIZZINESS 10/22 completed Not Available Not Available Not Available diazepam 2 mg tablet Take 1 tablet 3 times a day by oral route. active Not Available Not Available No t Available nitrofurant oin macrocrysta l 100 mg capsule TK ONE C PO BID FOR 7 DAYS 01/26 completed Not Available Not Available Not Available dexamethaso ne 4 mg tablet 03/23 completed Not Available Not Available Not Available carbamazepi ne 100 mg chewable tablet TERMINAL PRESS OPERATOR 1 T PO Q 12 H B MEALS 01/26 completed Not Available Not Available Not Available nitroglycer in 0.4 mg sublingual tablet active Not Available Not Available Not Available gabapentin 300 mg capsule 03/23 completed Not Available Not Available Not Available omeprazole 20 mg capsule,del ayed release TAKE 1 CAPSULE BY MOUTH DAILY active Not Available Not Available No t Available diclofenac sodium 75 mg tablet,yadira yed release 03/23 completed Not Available Not Available Not Available gabapentin 100 mg capsule Take 1 capsule twice a day by oral route as needed for 30 days. 03/23 completed Not Available Not Available Not Available methylpredn isolone 4 mg tablets in a dose pack FPD 03/23 completed Not Available Not Available Not Available fluticasone propionate 50 mcg/actuati on nasal spray,suspe nsion USE 2 SPRAYS IN EACH NOSTRIL DAILY 01/26 completed Not Available Not Available Not Available loratadine 10 mg tablet TK 1 T PO D 01/26 completed Not Available Not Available Not Available amoxicillin 500 mg-potassiu m clavulanate 125 mg tablet TK 1 T PO TID UNTIL GONE 10/25 completed Not Available Not Available Not Available Low Dose Aspirin 81 mg tablet,yadira yed release Take 1 tablet every day by oral route. 2017 active Not Available Not Available Not Avai lable moxifloxaci n 0.5 % eye drops 03/23 completed Not Available Not Available Not Available chlorhexidi ne gluconate 0.12 % mouthwash SWISH WITH 15 ML PO BID FOR 30 SECONDS 05/13 completed Not Available Not Available Not Available Aspir-81 06/19 completed Not Available Not Available Not Available Calcium 600 + Minerals 600 mg-10 mcg (400 unit) tablet Take by oral route. 03/23 completed Not Available Not Available Not Available Multi For Her 50 Plus 2017 active Not Available Not Available Not Avai lable PreviDent 5000 Booster Plus 1.1 % dental paste USE DIRECTED 01/26 completed Not Available Not Available Not Available Fluzone High-Dose Quad 2020 (PF) 240 mcg/0.7 mL IM syringe 03/23 completed Not Available Not Available Not Available BinaxNOW COVID-19 Ag Self Test kit Use as Directed on the Package 03/23 completed Not Available Not Available Not Available Paxlovid 300 mg (150 mg x 2)-100 mg tablets in a dose pack 03/23 completed Not Available Not Available Not Available Vitals Date Recorded Body weight Body mass index (BMI) Body height Respiratory rate Body temperature Heart rate Systolic blood pressure Diastolic blood pressure Provider Name and Address Organization Details Last Updated DateTime 3 63901.3 7 g 31.7 kg/m2 172.72 cm 14 /min 97.7 [degF] 69 /min 130 mm[Hg] 69 mm[Hg] Kim Gvillo, RN [place] - [facility] 3 11:08:34 Date Recorded Body mass index (BMI) Body height Oxygen saturation Oxygen saturation in Arterial blood by Pulse oximetry Heart rate Body temperature Body weight Systolic blood pressure Diastolic blood pressure Provider Name and Address Organization Details Last Updated DateTime 1 31.8 kg/m2 172.72 cm 98 % 98 % 72 /min 98.7 [degF] 58867.8 1 g 132 mm[Hg] 74 mm[Hg] Not Available [facility] 3 02:45:05 Date Recorded Body mass index (BMI) Body height Oxygen saturation Oxygen saturation in Arterial blood by Pulse oximetry Heart rate Respiratory rate Body temperature Body weight Systolic blood pressure Diastolic blood pressure Provider Name and Address Organization Details Last Updated DateTime 1 31.8 kg/m2 172.72 cm 98 % 98 % 74 /min 16 /min 98.8 [degF] 22864.8 1 g 120 mm[Hg] 82 mm[Hg] Not Available [facility] 3 02:45:06 Date Recorded Body mass index (BMI) Body height Oxygen saturation Oxygen saturation in Arterial blood by Pulse oximetry Heart rate Body temperature Body weight Systolic blood pressure Diastolic blood pressure Provider Name and Address Organization Details Last Updated DateTime 2 30.4 kg/m2 172.72 cm 98 % 98 % 79 /min 97.7 [degF] 70635.4 7 g 120 mm[Hg] 80 mm[Hg] Not Available [facility] 3 02:45:06 Social History Question Answer Notes LastModified by Organizat ion Details LastModified Time Tobacco Smoking Status Never Smoker Not Available [facility] 10/01/2022 02:35:06 Do You Have An Advance Directive? No [id number] Information not available 10/01/2022 What Is Your Level Of Alcohol Consumption? Moderate [id number].[id number] Information not available 10/01/2022 Are You Blind Or Do You Have Difficulty Seeing? No MIGRATION.477491 3967 Information not available 10/01/2022 What Is Your Level Of Caffeine Consumption? Moderate MIGRATION.[id number] 6009 Information not available 10/01/2022 How Much Tobacco Do You Chew? None MIGRATION.[id number] 3217 Information not available 10/01/2022 In The 14 Days Before Symptom Onset, Have You Had Close Contact With A Laboratory-confir med COVID-19 While That Case Was Ill? No MIGRATION.[id number] 5705 Information not available 10/01/2022 In The 14 Days Before Symptom Onset, Have You Had Close Contact With A Person Who Is Under Investigation For COVID-19 While That Person Was Ill? No [id number] [id number] Information not available 10/01/2022 Are You Deaf Or Do You Have Serious Difficulty Hearing? No MIGRATION.[id number] 6449 Information not available 10/01/2022 What Type Of Diet Are You Following? REGULAR MIGRATION.[id number] 2701 Information not available 10/01/2022 Which Illicit Or Recreational Drugs Have You Used? None MIGRATION.[id number] Information not available 10/01/2022 Do You Or Have You Ever Used E-cigarettes Or Vape? Never Used Electronic Cigarettes MIGRATION.[id number] 0820 Information not available 10/01/2022 What Is The Highest Grade Or Level Of School You Have Completed Or The Highest Degree You Have Received? [id number] MIGRATION.714614 6062 Information not available 10/01/2022 What Is Your Occupation? Retired MIGRATION.[id number] 0947 Information not available 10/01/2022 Do You Have A Medical Power Of Fruit Bar Maker? No MIGRATION.774685 8909 Information not available 10/01/2022 What Is Your Relationship Status? MIGRATION.[id number] 0680 Information not available 10/01/2022 Do You Use Your Seat Belt Or Car Seat Routinely? Yes MIGRATION.040270 3436 Information not available 10/01/2022 Do You Or Have You Ever Used Smokeless Tobacco? Never Used Smokeless Tobacco MIGRATION.552191 4086 Information not available 10/01/2022 Do You Feel Stressed (tense, Restless, Nervous, Or Anxious, Or Unable To Sleep At Night)? [id number] MIGRATION.772495 0539 Information not available 10/01/2022 Have You Recently Traveled Abroad? No MIGRATION.762791 2177 Information not available 10/01/2022 Sex: Female Functional Status Question Answer Note LastModified by Organizat ion Details LastModified Time Do you have difficulty walking or climbing stairs? No MIGRATION.[id number] 026 Information not available 10/01/2022 Do you have transportation difficulties? No MIGRATION.[id number] 026 Information not available 10/01/2022 Are you able to walk? YESWOREST MIGRATION.0974458 026 Information not available 10/01/2022 Do you have difficulty doing errands alone? No MIGRATION.3053561 026 Information not available 10/01/2022 Are you able to care for yourself? No MIGRATION.5524717 026 Information not available 10/01/2022 Do you have difficulty dressing or bathing? No MIGRATION.3745705 026 Information not available 10/01/2022 What is your exercise level? Occasional MIGRATION.[id number] 026 Information not available 10/01/2022 Mental Status Question Answer Note LastModified by Organizat ion Details LastModified Time Do you have difficulty concentrating, remembering or making decisions? No [id number] Information not available 10/01/2022 Family History Relationship Description Onset Age of this Age Resolved Age Notes LastModified by Organization Details LastModified Time Mother Malignant tumor of oral cavity [id number].004 [id number] Not available 10/01/2022 02:42:57 Father Heart disease MIGRATION.417 [id number] Not available 10/01/2022 02:42:57 Father Hypercholest erolemia MIGRATION.907 [id number] Not available 10/01/2022 02:42:57 Maternal Grandmother Diabetes mellitus MIGRATION.269 [id number] Not available 10/01/2022 02:42:57 Maternal Aunt Diabetes mellitus MIGRATION.335 [id number] Not available 10/01/2022 02:42:57 Paternal Uncle Heart disease MIGRATION.932 [id number] Not available 10/01/2022 02:42:57 Paternal Aunt Heart disease MIGRATION.597 [id number] Not available 10/01/2022 02:42:57 Medical History Condition Response NEUROLOGICAL PROBLEMS Y SURGERY N DIZZINESS Y HEART DISEASE/HEART PROBLEMS Y OTHER # 1 Y DEPRESSION (INCLUDING POST ) N HYPERTENSION Y HIGH CHOLESTEROL / HYPERLIPIDEMIA Y Gynecological HistoryNo gynecological history recorded. Obstetrics History GPAL:G 0 P 0 0 0 0 Past Encounters Encounter ID Performer Location Encounter Start Date Encounter Closed Date Diagnosis/Indication Diagnosis SNOMED-CT Code Diagnosis ICD10 Code Diagnosis Note [id number] [facility] [address] [place] [address] 10/22/2020 00:00:00 10/22/2020 12:10:16 [id number] [facility] [address] [place] [address] 03/12/2021 00:00:00 03/12/2021 18:09:58 [id number] [facility] [address] [place] [address] 12/06/2021 00:00:00 12/06/2021 20:55:04 [id number] Nalini Burger MD [facility] [address] [place] [address] 03/23/2023 10:58:56 03/23/2023 11:59:45 Impaired fasting glycemia [id number] R73.01 A1C of 5.7% stable with diet and exercise. Discussed carb counting and how to read food labels. Recommende d patient to utilize the diabetesfo [employer]LYYN from the ADA website to help with food preparatio n as this presents ideal carb content per meal so this will make carb counting much easier for patient. Recommende d she incorporat e natural insulin banbury mill operator s such as pears, apples, cinnamon, sol and sweet potatoes to help mobilize her endogenous insulin. Recommende d up to 150 minutes of moderate level activity/e xercise weekly. Pablito thyroiditis 21 [id number] E06.3 TSH and FT4 overall in range. Recommende d a thyroid supplement similiar to actalin by Dr. Miky Murray that contains, iodine, magnesium, manganese, carnitine and other elements to help maintain endogenous thyroid function and help to reduce swelling to take in meantime to help reduce time frame to burn out and to help with fatigue, hair thinning etc. Spent up to 25 minutes preparing to see the patient (eg, review of tests), obtaining and/or reviewing separately obtained history, performing a medically appropriat e examinatio n and evaluation , counseling and educating the patient, ordering medication s, tests, along with documentin g clinical informatio n in the electronic health record, independen tly interpreti ng results and communicat ing results to the patient. Patient can be followed by PCP - she/he is aware of my resignatio n and last day of May 15. If needed his/her PCP can refer patient to another endocrinol ogist in the area. All questions /concerns answered and refills necessary at visit today. Health Concerns Section Related Observation LastModified by Organization Detai ls LastModified Time None Recorded Concern Status LastModified by Organization Details LastModified Time None Recorded Advance Directives Directive N: Payers Encounter Date Sequence Insurance Name Policy Number Policy Cary Covered Member ID Cary Member ID Guarantor Name 03/23/2023 1 [employer] (MEDICARE REPLACEMENT PPO) [id number] 1 Ale Dk [id number] Ale Root Notes Date Note Type Note Provider Name and Address Organization Details Recorded Time 03/23/2023 text/html 68 yo female com es in for follow up in management of impaired fasting glucose/prediabete s (A1C of 5.7%) and hashimotos thyroiditis. last seen in December 2021 at that time we continued thyroid support and insulin sensitizers. She had lumbar spinal ablation completed recently at [facility]. 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 She has gained 8 pounds since last December. She has been on actalin thyroid support. She ran out of this for 3-4 days. labs from 03/25:TSH of 3.23 uIU/mlFT4 1 ng/dL145/85/52/76g lucose 106 mg/dLCr normalLFT [id number] 5.7%FT3 of 3.5 pg/mLinsulin 12.4 uU/mlTPO neg Nalini Burger MD [address] [facility], [facility] [address], [place], [address], [facility] [employer] 03/23/2023 12:56:05 OBGyn Episode No OBEpisode recorded.
--- OUTSIDE RECORDS SUMMARY | 2024-11-09 00:21 | XMS_ITS | Encounter Summary ---
Author Organization [facility] Address [address] [place] [address] Care Team Providers Care Sql Server Dba Name Role Phone Casey Dudley MD Primary Care Provider [phone] Encounter Details Date Type Department Care Team (Late st Contact Info) Description 09/18/2004 Outpatient Historical [facility] [address] [facility] [address] [place] [phone] Dahlia Landon MD [address] [facility] [address] [place], [place] [id number] Social History Tobacco Use Types Packs/Day Years Used Date Smoking Tobacco: Never Assessed Comments Unknown Sex and Gender Information Value Date Recorded Sex Assigned at Not on file 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 Gender Identity Not on file Sexual Orientation Not on file documented as of this encounter Plan of Treatment Upcoming Encounters Date Type Department Care Team (Late st Contact Info) Description 10/24/2025 10:30 AM CDT Office Visit [facility] [address] [facility] [address] [place] [address] Amol Sharma MD [address] [facility] [address] [place] [address] documented as of this encounter Visit Diagnoses Not on filedocumented in this encounter Care Teams Sql Server Dba Relationship Specialty Start Date End Date Casey Dudley MD PCP - General Family Practice 10/15/11 documented as of this encounter
--- OUTSIDE RECORDS SUMMARY | 2024-11-09 00:21 | XMS_ITS | Encounter Summary ---
Author Organization [facility] Address [address] [place] [address] Care Team Providers Care Mmi Teacher Name Role Phone Casey Dudley MD Primary Care Provider [phone] Encounter Details Date Type Department Care Team (Latest Contact Info) Description 06/11/2005 Inpatient Historical HIS PATIENT IN A BED Amol Rodriguez MD NO ADDRESS ON FILE [place] [facility] (Primary Dx) Social History Tobacco Use Types Packs/Day Years Used Date Smoking Tobacco: Never Assessed Comments Unknown Sex and Gender Information Value Date Recorded Sex Assigned at Not on file Legal Sex Female 4:26 AM FIREBRICK LAYER Gender Identity Not on file Sexual Orientation Not on file documented as of this encounter Plan of Treatment Upcoming Encounters Date Type Department Care Team (Late st Contact Info) Description 10/24/2025 10:30 AM CDT Office Visit [facility] - [facility] [address] [facility] [address] [place] [address] Amol Sharma MD [address] [facility] [address] [place] [address] documented as of this encounter Procedures Procedure Name Priority Date/Time Associated Diagnosis Comments TROPONIN Routine 06/12/2005 7:18 AM FIREBRICK LAYER TROPONIN (W/REFLEX CKMB/CK) Routine 06/12/2005 5:45 AM FIREBRICK LAYER CBC WITH DIFFERENTIAL Routine 06/12/2005 5:45 AM FIREBRICK LAYER CBC WITH DIFFERENTIAL Routine 06/12/2005 5:45 AM FIREBRICK LAYER BASIC METABOLIC PANEL Routine 06/12/2005 5:45 AM FIREBRICK LAYER TROPONIN Routine 06/11/2005 11:30 PM FIREBRICK LAYER TROPONIN (W/REFLEX CKMB/CK) Routine 06/11/2005 3:33 PM FIREBRICK LAYER PT AND APTT Routine 06/11/2005 2:45 PM FIREBRICK LAYER CBC WITH DIFFERENTIAL Routine 06/11/2005 2:45 PM FIREBRICK LAYER CBC WITH DIFFERENTIAL Routine 06/11/2005 2:45 PM FIREBRICK LAYER COMPREHENSIVE METABOLIC PANEL Routine 06/11/2005 2:45 PM FIREBRICK LAYER documented in this encounter Results * TROPONIN (06/12/2005 7:18 AM FIREBRICK LAYER) TROPONIN T <0.01 <=0.03 ng/mL INTERFACE SYSTEM TROPONIN T INTERP Negative INTERFACE SYSTEM 06/12/2005 7:18 AM FIREBRICK LAYER us Amol Rodriguez MD CHEMISTRY ORDERABLES Final Resul t INTERFACE SYSTEM Refer to clinic/hospital department * CBC WITH DIFFERENTIAL (06/12/2005 5:45 AM FIREBRICK LAYER) NEUTROPHILS 60 45 - 70 % INTERFAC E SYSTEM LYMPHOCYTES 31 16 - 45 % INTERFAC E SYSTEM MONOCYTES 7 3 - 13 % INTERFACE SYSTEM EOSINOPHILS 2 0 - 7 % INTERFAC E SYSTEM BASOPHILS 1 0 - 2 % INTERFACE SYSTEM NEUTROPHIL ABSOLUTE 4.79 1.90 - 7.00 K/uL INTERFACE SYSTEM LYMPHOCYTE ABSOLUTE 2.50 0.70 - 4.50 K/uL INTERFACE SYSTEM MONOCYTE ABSOLUTE 0.52 0.10 - 1.30 K/uL INTERFACE SYSTEM EOSINOPHIL ABSOLUTE 0.16 0.00 - 0.70 K/uL INTERFACE SYSTEM BASOPHILS ABSOLUTE 0.04 0.00 - 0.20 K/uL INTERFACE SYSTEM 06/12/2005 5:45 AM FIREBRICK LAYER us Amol Rodriguez MD HEMATOLOGY ORDERABLES Final Resu lt Performing Organization Address [facility] Phone Number INTERFACE SYSTEM Refer to clinic/hospital department * CBC WITH DIFFERENTIAL (06/12/2005 5:45 AM FIREBRICK LAYER) WBC 8.0 4.0 - 9.8 K/uL INTERFACE SYSTEM RBC 4.67 3.90 - 4.90 M/uL INTERFACE SYSTEM HEMOGLOBIN 13.6 11.8 - 14.8 g/dL INTERFACE SYSTEM HEMATOCRIT 40.5 35.5 - 44.0 % INTERFACE SYSTEM MCV 86.7 82.0 - 99.0 fL INTERFACE SYSTEM MCH 29.1 27.2 - 32.6 pg INTERFACE SYSTEM MCHC 33.6 31.5 - 35.5 % INTERFACE SYSTEM RDW 13.5 11.5 - 14.5 % INTERFACE SYSTEM RDW-STDEV 42.8 37.1 - 48.7 fL INTERFACE SYSTEM PLATELETS 260 140 - 350 K/uL INTERFACE SYSTEM MPV 9.5 9.3 - 12.4 fL INTERFACE SYSTEM 06/12/2005 5:45 AM FIREBRICK LAYER Amol Rodriguez MD HEMATOLOGY ORDERABLES Final Resu lt Performing Organization Address [facility] Phone Number INTERFACE SYSTEM Refer to clinic/hospital department * (ABNORMAL) BASIC METABOLIC PANEL (06/12/2005 5:45 AM FIREBRICK LAYER) GLUCOSE 124(H) 65 - 109 mg/dL INTERFACE SYSTEM CREATININE 1.0 0.4 - 1.2 mg/dL INTERFACE SYSTEM CALCIUM 9.0 8.6 - 10.2 mg/dL INTERFACE SYSTEM BUN 10 6 - 20 mg/dL INTERFACE SYSTEM SODIUM 140 135 - 145 mmol/L INTERFACE SYSTEM POTASSIUM 4.1 3.5 - 4.9 mmol/L INTERFACE SYSTEM CHLORIDE 104 96 - 108 mmol/L INTERFACE SYSTEM CO2 26 22 - 30 mmol/L INTERFACE SYSTEM 06/12/2005 5:45 AM FIREBRICK LAYER Amol Rodriguez MD CHEMISTRY ORDERABLES Final Resul t Performing Organization Address [facility] de Phone Number INTERFACE SYSTEM Refer to clinic/hospital department * TROPONIN (W/REFLEX CKMB/CK) (06/12/2005 5:45 AM FIREBRICK LAYER) TROPONIN T <0.01 <=0.03 ng/mL INTERFACE SYSTEM TROPONIN T INTERP Negative INTERFACE SYSTEM 06/12/2005 5:45 AM FIREBRICK LAYER Amol Rodriguez MD CHEMISTRY ORDERABLES Final Resul t Performing Organization Address [facility] de Phone Number INTERFACE SYSTEM Refer to clinic/hospital department * TROPONIN (06/11/2005 11:30 PM FIREBRICK LAYER) TROPONIN T <0.01 <=0.03 ng/mL INTERFACE SYSTEM TROPONIN T INTERP Negative INTERFACE SYSTEM 06/11/2005 11:3 0 PM FIREBRICK LAYER Amol Rodriguez MD CHEMISTRY ORDERABLES Final Resul t Performing Organization Address [facility] de Phone Number INTERFACE SYSTEM Refer to clinic/hospital department * TROPONIN (W/REFLEX CKMB/CK) (06/11/2005 3:33 PM FIREBRICK LAYER) TROPONIN T <0.01 <=0.03 ng/mL INTERFACE SYSTEM TROPONIN T INTERP Negative INTERFACE SYSTEM RESULT COMMENT, CHEMISTRY INTERFACE SYSTEM Comment: Redraw of [id number] 06/11/2005 3:33 PM FIREBRICK LAYER Authorized P Er CHEMISTRY ORDERABLES Final Resul t Performing Organization Address [facility] Phone Number INTERFACE SYSTEM Refer to clinic/hospital department * CBC WITH DIFFERENTIAL (06/11/2005 2:45 PM FIREBRICK LAYER) NEUTROPHILS 55 45 - 70 % INTERFAC E SYSTEM LYMPHOCYTES 36 16 - 45 % INTERFAC E SYSTEM MONOCYTES 8 3 - 13 % INTERFACE SYSTEM EOSINOPHILS 2 0 - 7 % INTERFAC E SYSTEM BASOPHILS 1 0 - 2 % INTERFACE SYSTEM NEUTROPHIL ABSOLUTE 3.11 1.90 - 7.00 K/uL INTERFACE SYSTEM LYMPHOCYTE ABSOLUTE 2.04 0.70 - 4.50 K/uL INTERFACE SYSTEM MONOCYTE ABSOLUTE 0.43 0.10 - 1.30 K/uL INTERFACE SYSTEM EOSINOPHIL ABSOLUTE 0.10 0.00 - 0.70 K/uL INTERFACE SYSTEM BASOPHILS ABSOLUTE 0.03 0.00 - 0.20 K/uL INTERFACE SYSTEM 06/11/2005 2:45 PM FIREBRICK LAYER Aleksandr Arthur MD HEMATOLOGY ORDERABLES Final Result Performing Organization Address [facility] Phone Number INTERFACE SYSTEM Refer to clinic/hospital department * CBC WITH DIFFERENTIAL (06/11/2005 2:45 PM FIREBRICK LAYER) WBC 5.7 4.0 - 9.8 K/uL INTERFACE SYSTEM RBC 4.48 3.90 - 4.90 M/uL INTERFACE SYSTEM HEMOGLOBIN 13.6 11.8 - 14.8 g/dL INTERFACE SYSTEM HEMATOCRIT 39.1 35.5 - 44.0 % INTERFACE SYSTEM MCV 87.3 82.0 - 99.0 fL INTERFACE SYSTEM MCH 30.4 27.2 - 32.6 pg INTERFACE SYSTEM MCHC 34.8 31.5 - 35.5 % INTERFACE SYSTEM RDW 13.4 11.5 - 14.5 % INTERFACE SYSTEM RDW-STDEV 42.8 37.1 - 48.7 fL INTERFACE SYSTEM PLATELETS 278 140 - 350 K/uL INTERFACE SYSTEM MPV 9.6 9.3 - 12.4 fL INTERFACE SYSTEM 06/11/2005 2:45 PM FIREBRICK LAYER Aleksandr Arthur MD HEMATOLOGY ORDERABLES Final Result Performing Organization Address [facility] Phone Number INTERFACE SYSTEM Refer to clinic/hospital department * PT AND APTT (06/11/2005 2:45 PM FIREBRICK LAYER) PROTIME 13.6 12.7 - 15.1 Seconds INTERFACE SYSTEM Comment: Note new reference range effective 05. INR therapeutic range is not affected. INR 0.9 0.9 - 1.1 INTERFACE SYSTEM Comment: INR Therapeutic Range: Adult: 2.0 - 3.0 for pulmonary embolism or prophylaxis against venous thrombosis or systemic embolization. 2.0 - 3.0 for patients with tissue heart valves. 2.5 - 3.5 for patients with mechanical heart valves or post UT. Pediatric (12 years and under): 1.5 - 3.0 Although the target range in children is not well established , INR values of 1.5 - 3.0 are recommended for most patients. Higher values have been used in children with prosthetic cardiac valves and hereditary clotting disorders. (<3 days) therapeutic ranges have not been established. PTT 28.6 24.4 - 36.4 Seconds INTERFACE SYSTEM Comment: PTT Therapeutic Range: Heparin Level PTT (seconds) <0.10 units/mL <53 0.10 - 0.30 units/mL 53 - 67 0.30 - 0.70 units/mL* 67 - 95* 0.70 - 1.00 units/mL 95 - 116 *corresponds to therapeutic range for unfractionated heparin Note changes in PTT reference and therapeutic ranges effective 06/10/2005 . Refer to updated heparin nomogram. PROTIME COMMENT Slightly Hemolyzed INTERFACE SYSTEM PTT COMMENT Slightly Hemolyzed INTERFACE SYSTEM 06/11/2005 2:45 PM FIREBRICK LAYER Aleksandr Arthur MD HEMATOLOGY ORDERABLES Final Result INTERFACE SYSTEM Refer to clinic/hospital department * COMPREHENSIVE METABOLIC PANEL (06/11/2005 2:45 PM FIREBRICK LAYER) GLUCOSE 102 65 - 109 mg/dL INTERFACE SYSTEM CREATININE 0.9 0.4 - 1.2 mg/dL INTERFACE SYSTEM CALCIUM 8.9 8.6 - 10.2 mg/dL INTERFACE SYSTEM AST 24 12 - 32 U/L INTERFACE SYSTEM Comment:Hemolyzed: Result ma y be falsely elevated. ALKALINE PHOSPHATASE 79 35 - 104 U/L INTERFACE SYSTEM BUN 9 6 - 20 mg/dL INTERFACE SYSTEM BILIRUBIN TOTAL 0.3 0.2 - 1.0 mg/dL INTERFACE SYSTEM ALBUMIN 4.1 3.4 - 4.8 g/dL INTERFACE SYSTEM TOTAL PROTEIN 7.5 6.3 - 8.6 g/dL INTERFACE SYSTEM ALT 18 0 - 31 U/L INTERFACE SYSTEM SODIUM 141 135 - 145 mmol/L INTERFACE SYSTEM POTASSIUM 4.2 3.5 - 4.9 mmol/L INTERFACE SYSTEM Comment:Slight hemolysis pre sent. Result may be falsely elevated. CHLORIDE 105 96 - 108 mmol/L INTERFACE SYSTEM CO2 25 22 - 30 mmol/L INTERFACE SYSTEM 06/11/2005 2:45 PM FIREBRICK LAYER us Aleksandr Arthur MD CHEMISTRY ORDERABLES Final R esult INTERFACE SYSTEM Refer to clinic/hospital department documented in this encounter Visit Diagnoses Diagnosis Calculus of gallbladder with other cholecystitis, without mention of obstruction- Primary documented in this encounter Care Teams Mmi Teacher Relationship Specialty Start Date End Date Casey Dudley MD PCP - General Family Practice 10/15/11 documented as of this encounter
--- OUTSIDE RECORDS SUMMARY | 2024-11-09 00:21 | XMS_ITS | Encounter Summary ---
Author Organization [facility] Address [address] [place] [address] Care Team Providers Care Computer Networking Instructor Adjunct Name Role Phone Casey Dudley MD Primary Care Provider Encounter Details Date Type Department Care Team (Late st Contact Info) Description 05/20/2005 Outpatient Historical [facility] 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 Gender Identity Not on file Sexual Orientation Not on file documented as of this encounter Plan of Treatment Upcoming Encounters Date Type Department Care Team (Late st Contact Info) Description 10/24/2025 10:30 AM CDT Office Visit [facility] Heart [facility] Vascular - [facility] [address] [place] [address] [place] [address] Amol Sharma MD [address] [place] [address] documented as of this encounter Visit Diagnoses Not on filedocumented in this encounter Care Teams Computer Networking Instructor Adjunct Relationship Specialty Start Date End Date Casey Dudley MD PCP - General Family Practice 10/15/11 documented as of this encounter
--- OUTSIDE RECORDS SUMMARY | 2024-11-09 00:21 | XMS_ITS | Encounter Summary ---
Author Organization [facility] Address [address] [place] [address] Care Team Providers Care Operations Agent Name Role Phone Casey Dudley MD Primary Care Provider [phone] Encounter Details Date Type Department Care Team (Late st Contact Info) Description 06/12/2005 Outpatient Historical [facility] [address] 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 [address] [place] [address] [address] [place] [address] Amol Sharma MD [address] [place] [address] documented as of this encounter Visit Diagnoses Not on filedocumented in this encounter Care Teams Operations Agent Relationship Specialty Start Date End Date Casey Dudley MD PCP - General Family Practice 10/15/11 documented as of this encounter
--- OUTSIDE RECORDS SUMMARY | 2024-11-09 00:21 | XMS_ITS | Encounter Summary ---
Author Organization [facility] Address [address] [place] [address] Care Team Providers Care Transformation Analyst Name Role Phone Casey Dudley MD Primary Care Provider [phone] Encounter Details Date Type Department Care Team (Late st Contact Info) Description 05/29/2005 Outpatient Historical [facility] ([facility]) [address] 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 Gender Identity Not on file Sexual Orientation Not on file documented as of this encounter Plan of Treatment Upcoming Encounters Date Type Department Care Team (Late st Contact Info) Description 10/24/2025 10:30 AM CDT Office Visit [facility] [address] [facility] [address] [place] [address] Amol Sharma MD [address] [facility] [address] [place] [address] documented as of this encounter Visit Diagnoses Not on filedocumented in this encounter Care Teams Transformation Analyst Relationship Specialty Start Date End Date Casey Dudley MD PCP - General Family Practice 10/15/11 documented as of this encounter
--- OUTSIDE RECORDS SUMMARY | 2024-11-09 00:21 | XMS_ITS | Encounter Summary ---
Author Organization [facility] Address [address] [place] [address] Care Team Providers Care Design Eng Name Role Phone Casey Dudley MD Primary Care Provider [phone] Encounter Details Date Type Department Care Team (Latest Contact Info) Description 11/20/2001 Inpatient Historical HIS PATIENT IN A BED Michelle Santana MD [address] [place] [address] [address] [facility] ([facility]) (Primary Dx) Social History Tobacco Use Types Packs/Day Years Used Date Smoking Tobacco: Never Assessed Comments Unknown Sex and Gender Information Value Date Recorded Sex Assigned at Not on file 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 Gender Identity Not on file Sexual Orientation Not on file documented as of this encounter Plan of Treatment Upcoming Encounters Date Type Department Care Team (Late st Contact Info) Description 10/24/2025 10:30 AM CDT Office Visit [facility] Heart and Vascular - [facility] [address] [place] [address] Amol Sharma MD [address] [place] [address] documented as of this encounter Visit Diagnoses Diagnosis Acute myocardial infarction, subendocardial infarction, initial episode of care ([facility])- Primary Acute myocardial infarction, subendocardial infarction, initial episode of care documented in this encounter Care Teams Design Eng Relationship Specialty Start Date End Date Casey Dudley MD PCP - General Family Practice 10/15/11 documented as of this encounter
--- OUTSIDE RECORDS SUMMARY | 2024-11-09 00:21 | XMS_ITS | Encounter Summary ---
Author Organization [facility] Address [address] [place] [address] Care Team Providers Care Dev Ops Engineer Name Role Phone Casey Dudley MD Primary Care Provider [phone] Encounter Details Date Type Department Care Team (Latest Contact Info) Description 05/29/2005 Inpatient Historical HIS PATIENT IN A BED Amol Sharma MD [address] [place] [address] [place] [address] [facility] [address] [place] [address] ID NOS FIRST EPISODE CARE ([facility]) (Primary Dx) Social History Tobacco Use Types Packs/Day Years Used Date Smoking Tobacco: Never Assessed Comments Unknown Sex and Gender Information Value Date Recorded Sex Assigned at Not on file 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 Gender Identity Not on file Sexual Orientation Not on file documented as of this encounter Plan of Treatment Upcoming Encounters Date Type Department Care Team (Late st Contact Info) Description 10/24/2025 10:30 AM CDT Office Visit [facility] Heart [facility] Vascular - [facility] [address] [place] [address] Amol Sharma MD [address] [place] [address] documented as of this encounter Procedures Procedure Name Priority Date/Time Associated Diagnosis Comments BASIC METABOLIC PANEL Routine 05/30/2005 5:25 AM CDT POC GLUCOSE Routine 05/29/2005 8:40 PM CDT CK TOTAL, RELATIVE INDEX Routine 05/29/2005 8:15 PM CDT CKMB W/REFLEX CK Routine 05/29/2005 8:15 PM CDT TROPONIN (W/REFLEX CKMB/CK) Routine 05/29/2005 8:15 PM CDT PTT Routine 05/29/2005 8:15 PM CDT PTT Routine 05/29/2005 5:40 PM CDT POC ACTIVATED CLOTTING TIME Routine 05/29/2005 2:13 PM CDT CK TOTAL, RELATIVE INDEX Routine 05/29/2005 11:00 AM CDT CKMB W/REFLEX CK Routine 05/29/2005 11:0 0 AM CDT TROPONIN (W/REFLEX CKMB/CK) Routine 05/29/2005 11:00 AM CDT PT AND APTT Routine 05/29/2005 11:00 AM CDT CBC WITH DIFFERENTIAL Routine 05/29/2005 11:00 AM CDT CBC WITH DIFFERENTIAL Routine 05/29/2005 11:00 AM CDT documented in this encounter Results * (ABNORMAL) BASIC METABOLIC PANEL (05/30/2005 5:25 AM CDT) GLUCOSE 114(H) 65 - 109 mg/dL INTERFACE SYSTEM CREATININE 1.0 0.4 - 1.2 mg/dL INTERFACE SYSTEM CALCIUM 8.8 8.6 - 10.2 mg/dL INTERFACE SYSTEM BUN 14 6 - 20 mg/dL INTERFACE SYSTEM SODIUM 139 135 - 145 mmol/L INTERFACE SYSTEM POTASSIUM 4.0 3.5 - 4.9 mmol/L INTERFACE SYSTEM CHLORIDE 103 96 - 108 mmol/L INTERFACE SYSTEM CO2 26 22 - 30 mmol/L INTERFACE SYSTEM 05/30/2005 5:25 AM CDT us Amol Sharma MD CHEMISTRY ORDERABLES Final Resul t Performing Organization Address [facility] Phone Number INTERFACE SYSTEM Refer to clinic/hospital department * POC GLUCOSE (05/29/2005 8:40 PM CDT) GLUCOSE POC 105 65 - 109 mg/dL INTERFACE SYSTEM 05/29/2005 8:40 PM CDT us Jero Ledesma MD POINT OF CARE TESTING Final Result Performing Organization Address [facility] INTERFACE SYSTEM Refer to clinic/hospital department * PTT (05/29/2005 8:15 PM CDT) PTT 29.4 25.0 - 35.0 Seconds INTERFACE SYSTEM Comment: PTT Therapeutic Range: Heparin Level PTT (seconds) <0.10 units/mL <45 0.10 - 0.30 units/mL 45 - 65 0.30 - 0.70 units/mL* 65 - 106* 0.70 - 1.00 units/mL 106 - 137 *corresponds to therapeutic range for unfractionated heparin 05/29/2005 8:15 PM CDT us Amol Sharma MD HEMATOLOGY ORDERABLES Final Resu lt Performing Organization Address [facility] Number INTERFACE SYSTEM Refer to clinic/hospital department * (ABNORMAL) CK TOTAL, RELATIVE INDEX (05/29/2005 8:15 PM CDT) CARDIAC RELATIVE INDEX 9.8(H) <=4.0 INTERFACE SYSTEM CK 217(H) 10 - 145 U/L INTERFACE SYSTEM 05/29/2005 8:15 PM CDT Result Tavo Sharma MD CHEMISTRY ORDERABLES Final Resul t Performing Organization Address [facility] Phone Number INTERFACE SYSTEM Refer to clinic/hospital department * (ABNORMAL) CKMB W/REFLEX CK (05/29/2005 8:15 PM CDT) CKMB 21.2(AA) <=3.8 ng/mL INTERFACE SYSTEM Comment:Persistent abnormal result CKMB INTERP See Below INTERFAC E SYSTEM Comment:Elevated CKMB,consis tent with Myocardial Injury 05/29/2005 8:15 PM CDT Result [facility] Amol Sharma MD CHEMISTRY ORDERABLES Final Resul t Performing Organization Address [facility] Phone Number INTERFACE SYSTEM Refer to clinic/hospital department * (ABNORMAL) TROPONIN (W/REFLEX CKMB/CK) (05/29/2005 8:15 PM CDT) TROPONIN T 0.55(AA) <=0.03 ng/mL INTERFACE SYSTEM Comment:Persistent abnormal result TROPONIN T INTERP See Below INTERFACE SYSTEM Comment:Elevated Troponin-T, Consistent with Myocardial Injury 05/29/2005 8:15 PM CDT us Amol Sharma MD CHEMISTRY ORDERABLES Final Resul t Performing Organization Address [facility] Phone Number INTERFACE SYSTEM Refer to clinic/hospital department * (ABNORMAL) PTT (05/29/2005 5:40 PM CDT) Pathologist [facility] PTT 55.1(H) 25.0 - 35.0 Seconds INTERFACE SYSTEM Comment: PTT Therapeutic Range: Heparin Level PTT (seconds) <0.10 units/mL <45 0.10 - 0.30 units/mL 45 - 65 0.30 - 0.70 units/mL* 65 - 106* 0.70 - 1.00 units/mL 106 - 137 *corresponds to therapeutic range for unfractionated heparin 05/29/2005 5:40 PM CDT Jero Ledesma MD HEMATOLOGY ORDERABLES Final Result Performing Organization Address [facility] Phone Number INTERFACE SYSTEM Refer to clinic/hospital department * POC ACTIVATED CLOTTING TIME (05/29/2005 2:13 PM CDT) Pathologist [facility] ACT POC 318 Seconds INTERFACE SYSTEM Comment: Normal Donors range 113-149 Non-heparin patients 89-169 ACT value for sheath pull at [facility] has been established to be < or = to 1 70. (See also Nursing Procedures for sheath pull in related nursing areas) 05/29/2005 2:13 PM CDT Jero Ledesma MD POINT OF CARE TESTING Final Result Performing Organization Address [facility] Phone Number INTERFACE SYSTEM Refer to clinic/hospital department * CK TOTAL, RELATIVE INDEX (05/29/2005 11:00 AM CDT) CARDIAC RELATIVE INDEX N/A <=4.0 INTERFACE SYSTEM CK 85 10 - 145 U/L INTERFACE SYSTEM 05/29/2005 11:0 0 AM CDT Meri Dallas MD CHEMISTRY ORDERABLES Final Res ult Performing Organization Address [facility] Phone Number INTERFACE SYSTEM Refer to clinic/hospital department * (ABNORMAL) CKMB W/REFLEX CK (05/29/2005 11:00 AM CDT) CKMB 4.1(AA) <=3.8 ng/mL INTERFACE SYSTEM Comment:Results called to Joshua ss at 05/29/2005 12:05 PM and read back verified. CKMB INTERP See Below INTERFAC E SYSTEM Comment:Elevated CKMB,consis tent with Myocardial Injury. 05/29/2005 11:0 0 AM CDT Meri Dallas MD CHEMISTRY ORDERABLES Final Res ult Performing Organization Address [facility] de Phone Number INTERFACE SYSTEM Refer to clinic/hospital department * (ABNORMAL) TROPONIN (W/REFLEX CKMB/CK) (05/29/2005 11:00 AM CDT) TROPONIN T 0.04(AA) <=0.03 ng/mL INTERFACE SYSTEM Comment:Results called to Ferdinand ta at 05/29/2005 11:40 AM and read back verified. TROPONIN T INTERP See Below INTERFACE SYSTEM Comment:Elevated Troponin-T, Consistent with Myocardial Injury 05/29/2005 11:0 0 AM CDT Meri Dallas MD CHEMISTRY ORDERABLES Final Res ult Performing Organization Address [facility] Phone Number INTERFACE SYSTEM Refer to clinic/hospital department * (ABNORMAL) CBC WITH DIFFERENTIAL (05/29/2005 11:00 AM CDT) NEUTROPHILS 76(H) 45 - 70 % INTERFAC E SYSTEM LYMPHOCYTES 17 16 - 45 % INTERFAC E SYSTEM MONOCYTES 6 3 - 13 % INTERFACE SYSTEM EOSINOPHILS 1 0 - 7 % INTERFAC E SYSTEM BASOPHILS 0 0 - 2 % INTERFACE SYSTEM NEUTROPHIL ABSOLUTE 5.70 1.90 - 7.00 K/uL INTERFACE SYSTEM LYMPHOCYTE ABSOLUTE 1.23 0.70 - 4.50 K/uL INTERFACE SYSTEM MONOCYTE ABSOLUTE 0.42 0.10 - 1.30 K/uL INTERFACE SYSTEM EOSINOPHIL ABSOLUTE 0.08 0.00 - 0.70 K/uL INTERFACE SYSTEM BASOPHILS ABSOLUTE 0.03 0.00 - 0.20 K/uL INTERFACE SYSTEM 05/29/2005 11:0 0 AM CDT Meri Dallas MD HEMATOLOGY ORDERABLES Final Re sult Performing Organization Address [facility] Phone Number INTERFACE SYSTEM Refer to clinic/hospital department * CBC WITH DIFFERENTIAL (05/29/2005 11:00 AM CDT) WBC 7.5 4.0 - 9.8 K/uL INTERFACE SYSTEM RBC 4.80 3.90 - 4.90 M/uL INTERFACE SYSTEM HEMOGLOBIN 14.1 11.8 - 14.8 g/dL INTERFACE SYSTEM HEMATOCRIT 42.3 35.5 - 44.0 % INTERFACE SYSTEM MCV 88.1 82.0 - 99.0 fL INTERFACE SYSTEM MCH 29.4 27.2 - 32.6 pg INTERFACE SYSTEM MCHC 33.3 31.5 - 35.5 % INTERFACE SYSTEM RDW 13.4 11.5 - 14.5 % INTERFACE SYSTEM RDW-STDEV 43.5 37.1 - 48.7 fL INTERFACE SYSTEM PLATELETS 236 140 - 350 K/uL INTERFACE SYSTEM MPV 10.3 9.3 - 12.4 fL INTERFACE SYSTEM 05/29/2005 11:0 0 AM CDT Meri Dallas MD HEMATOLOGY ORDERABLES Final Re sult Performing Organization Address [facility] Phone Number INTERFACE SYSTEM Refer to clinic/hospital department * PT AND APTT (05/29/2005 11:00 AM CDT) PROTIME 14.4 12.9 - 15.7 Seconds INTERFACE SYSTEM INR 1.0 0.9 - 1.1 INTERFACE SYSTEM Comment: INR Therapeutic Range: Adult: 2.0 - 3.0 for pulmonary embolism or prophylaxis against venous thrombosis or systemic embolization. 2.0 - 3.0 for patients with tissue heart valves. 2.5 - 3.5 for patients with mechanical heart valves or post ID. Pediatric (12 years and under): 1.5 - 3.0 Although the target range in children is not well established , INR values of 1.5 - 3.0 are recommended for most patients. Higher values have been used in children with prosthetic cardiac valves and hereditary clotting disorders. (<3 days) therapeutic ranges have not been established. PTT 30.4 25.0 - 35.0 Seconds INTERFACE SYSTEM Comment: PTT Therapeutic Range: Heparin Level PTT (seconds) <0.10 units/mL <45 0.10 - 0.30 units/mL 45 - 65 0.30 - 0.70 units/mL* 65 - 106* 0.70 - 1.00 units/mL 106 - 137 *corresponds to therapeutic range for unfractionated heparin 05/29/2005 11:0 0 AM CDT Meri Dallas MD HEMATOLOGY ORDERABLES Final Re sult Performing Organization Address City/[facility] Co de Phone Number INTERFACE SYSTEM Refer to clinic/hospital department documented in this encounter Visit Diagnoses Diagnosis Acute myocardial infarction, unspecified site, initial episode of care (CMS/[facility])- Primary Acute myocardial infarction, unspecified site, initial episode of care documented in this encounter Care Teams Dev Ops Engineer Relationship Specialty Start Date End Date Casey Dudley MD PCP - General Family Practice 10/15/11 documented as of this encounter
--- OUTSIDE RECORDS SUMMARY | 2024-11-09 00:21 | XMS_ITS | Encounter Summary ---
Author Organization [facility] Address [address] [place] [address] Care Team Providers Care Factory Focus Technician Name Role Phone Casey Dudley MD Primary Care Provider [phone] Encounter Details Date Type Department Care Team (Late st Contact Info) Description 05/29/2005 Outpatient Historical [facility] 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 Gender Identity Not on file Sexual Orientation Not on file documented as of this encounter Plan of Treatment Upcoming Encounters Date Type Department Care Team (Late st Contact Info) Description 10/24/2025 10:30 AM CDT Office Visit [facility] Heart and Vascular - [facility] [address] [place] [address] [address] [place] [address] Amol Sharma MD [address] [place] [address] documented as of this encounter Visit Diagnoses Not on filedocumented in this encounter Care Teams Factory Focus Technician Relationship Specialty Start Date End Date Casey Dudley MD PCP - General Family Practice 10/15/11 documented as of this encounter
--- OUTSIDE RECORDS SUMMARY | 2024-11-09 00:21 | XMS_ITS | Clinical Summary ---
Author Organization [facility] Address [address] [place] [address] Care Team Providers Care Tool And Die Engineer Name Role Phone Casey Dudley MD Primary Care Provider [phone] Allergies No known active allergies Medications ASPIRIN 81 mg Oral Tab Take 81 mg by mouth daily. Active ZOVIRAX 5 % Topical Oint Apply to affected area see administration instructions. Po BID prn x 5 days 3 Gram 1 08/24/19 10 Active MULTIVITAMIN ORAL Take by mouth. Activ e OMEPRAZOLE ORAL Take 20 mg by mouth daily . Active OTHER Take 375 mg by mouth daily Provider please include Medication name, dose, route and frequency . Active atorvastatin (LIPITOR) 20 mg tablet Take 20 mg by mouth daily at bedtime. 5 02/12/20 19 Active OTHER Actalin take 1 tablet bid . Active enalapril (VASOTEC) 5 mg tablet TAKE 1 TABLET BY MOUTH DAILY 90 Tablet 3 08/25/19 20 Active diltiaZEM (diltiazem sr) 240 mg Extended Release capsule TAKE ONE CAPSULE BY MOUTH EVERY DAY 90 Capsule 2 05/17/20 20 Active gabapentin (NEURONTIN) 600 mg tablet Take 900 mg by mouth 3 times daily. 04/26/20 24 Active calcium carb, citrate/vit D3 (CALCIUM CARB AND CITRATE-VITD3 ORAL) Take by mouth. 2024 Discontinued Active Problems Patient Care Coordination No te Formatting of this note migh t be different from the original. Automatic Spinning Lathe Setter- Dr. 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/24/20082014 Overview (05/23/2013): No sign obsruc ds, MIs felt due to coronary artery spasm caths 2001, 2004 Large area anterior ischmeia, nl LV fxn stress 08/11 No sign obsruc ds, nl LV fxn cath 09/11 Essential hypertension, benign 07/24/2008 08/01/2008 Other and unspecified hyperlipidemia 07/24/2008 08/01/2008 Metabolic syndrome 07/24/2008 8 Myocardial infarction 2009 Overview (08/01/2008): felt due to coronary artery spasm Glucose intolerance 10/30/19 11 Overview (08/01/2008): metabolic syndrome Encounters Date Type Department Care Team Description 10/25/2024 External Device Data STL ABSTRACTION Provider, Abstract 10/19/2024 External Device Data STL ABSTRACTION Provider, Abstract 10/19/2024 External Device Data ST[place] ABSTRACTION Provider, Abstract 10/18/2024 10:45 AM CDT Office Visit [facility] Heart and Vascular - [facility] [address] [place] [address] [place] [address] Amol Sharma MD History of ND (myocardial infarction) (Primary Dx); Hypertension; Hyperlipidemia from Last 3 Months Family History Medical History Relation Name Comments Heart Disease Father Hypertension Father Diabetes Maternal Aunt Diabetes Maternal Grandmother Cancer Mother oral Relation Name Status Comments Father Maternal Aunt Maternal Grandmother Mother Social History Tobacco Use Types Packs/Day Years Used Date Smoking Tobacco: Never Smokeless Tobacco: Never Alcohol Use Standard Drinks/Week Comments Yes 0.8 (1 standard drink = 0.6 oz p ure alcohol) Comments No Sex and Gender Information Value Date Recorded Sex Assigned at Not on file 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 Gender Identity Not on file Sexual Orientation Not on file Occupation Industry Job Start Date Job End Date Not on file Not on file Not on file Not on file Last Filed Vital Signs Vital Sign Reading Time Taken Comments Blood Pressure 110/64 10/18/2024 11:04 AM CDT Pulse 66 10/18/2024 11:04 AM CDT Temperature - - Respiratory Rate - - Oxygen Saturation 98% 10/18/2024 11:04 AM CDT Inhaled Oxygen Concentration - - Weight 90.7 kg (200 lb) 10/18/2024 11:04 AM CDT Height 172.7 cm (5' 8 ) 10/18/2024 11:04 AM CDT Body Mass Index 30.41 10/18/2024 11:04 AM CDT Plan of Treatment Upcoming Encounters Date Type Department Care Team (Late st Contact Info) Description 10/24/2025 10:30 AM CDT Office Visit [facility] Heart and Vascular - [facility] [address] [place] [address] [address] [place] [address] Amol Sharma MD [address] [place] [address] Health Maintenance Due Date Last Done Comments DIABETES ANNUAL FOOT EXAM 1971 DIABETES ANNUAL RETINAL EXAM 1971 DIABETES MICROALBUMIN ANNUAL SCREEN 1971 DTAP/TDAP/TD VACCINES (1 - Tdap) 1972 PNEUMOCOCCAL VACCINE 50+ YEA RS (1 of 2 - PCV) 1972 FIT-DNA Q 3 years 1998 Flex Sig/CT Colonography Q 5 years 1998 FIT/FOBT Q 1 year 10/14/2012 10/15/2011, , 11/06/2005, Additional history exists BREAST CANCER SCREENING 09/30/2014 09/30/19 14, 11/03/2011, 09/26/2010, Additional history exists ZOSTER VACCINE (2 of 3) 07/24/2017 05/29/2017 COLORECTAL SCREENING 10/21/2017 10/22/2007, 10/04/19 08 Colorectal Cancer Screening 10/21/2017 LDL CHOLESTEROL ANNUAL 01/23/2021 0, 01/24/2020, 01/08/2018, Additional history exists DIABETES HBA1C Q 6 MONTHS 09/18/2023 03/18/2023, INFLUENZA VACCINE (#1) 2024 9, 05/29/2017, 08/06/2015 Medicare Advantage ([place]) Preventative Visit/Annual Wellness Visit 08/03/2024 01/27/2014, 10/15/2011, 08/24/2009, Additional history exists RSV VACCINE (60+ or ) (1 - 1-dose 75+ series) 2028 OSTEOPOROSIS SCREENING Completed 08/24/2009 Procedures Procedure Name Priority Date/Time Associated Diagnosis Comments RI ECG ROUTINE ECG W/LEAST 12 LDS W/I&R Routine 10/18/2024 11:32 AM CDT History of ND (myocardial infarction) LIPID PANEL Routine 01/24/2020 MAMMO SCREEN BILAT W OR WO CAD Routine 09/30/2013 Screening breast examination POC OCCULT BLOOD 1 CARD Routine 10/15/2011 Well woman exam with routine gynecological exam XR DEXA BONE DENSITY AXIAL 1 OR MORE SITES Routine 08/24/2009 11:34 AM COLOR COATER Well Woman Exam with Routine Gynecological Exam HX COLONOSCOPY Routine 10/22/2007 from Last 3 Months or Most Recently Relevant to Health Maintenance Results * RI ECG ROUTINE ECG W/LEAST 12 LDS W/I&R (10/18/2024 11:32 AM CDT) Narrative [facility] - 10/18/2024 11:32 AM CDT Amol Sharma MD 10/18/2024 12:24 PM NSR. Normal tracing. us Amol Sharma MD ECG ORDERABLES Final Result [facility] CLIA# [id number] [address] [place] [address], [address] [place] [address] * LIPID PANEL (01/24/2020) Blood us Abstract Provider CHEMISTRY ORDERABLES Final Res ult [facility] CLIA# [id number] [address] [place] [address], [place] [address] * MAMMO DIGITAL SCREEN BILAT (09/30/2013) Anatomical Region Laterality Modality Breast Bilateral Other Dahlia Landon MD MAMMO ORDERABLES Final Result * POC OCCULT BLOOD 1 CARD (10/15/2011) OCCULT BLOOD #1 Negative [facility]G [facility] Stool specimen (specimen) Nadeen Arreagasergio Gotti NP POINT OF CARE TESTING Final Result [facility] * XR DEXA BONE DENSITY AXIAL 1 OR MORE SITES (08/24/2009 11:34 AM COLOR COATER) Anatomical Region Laterality Modality Digital Radiogra phy 08/24/2009 11:3 4 AM COLOR COATER Narrative 08/24/2009 11:37 AM COLOR COATER BONE MINERAL DENSITY (DEXA) HISTORY: 54 year old female with postmenopausal symptoms needing evaluation for osteoporosis. PROCEDURE: Using a eSilicon dual energy x-ray absorptiometry system, the patient's bone mineral density was measured over the lumbar spine and femurs. Comparison was made to age and sex matched normal values. FINDINGS: Lumbar Spine ( L1-L4) Bone Mineral Density = 1.229 gm/cm2 Compared to young adult (T-score), difference of +0.4 Standard Deviations. The patient's spine BMD is normal when compared to that of a young adult. Left Femoral Neck Bone Mineral Density = 1.128 gm/cm2 Compared to young adult (T-score), difference of +0.6 Standard Deviations. The patient's left femoral neck BMD is normal when compared to that of a young adult. Right Femoral Neck Bone Mineral Density = 1.140 gm/cm2 Compared to young adult (T-score), difference of +0.7 Standard Deviations. The patient's right femoral neck BMD is normal when compared to that of a young adult. No prior DEXA studies are available for comparison. Procedure Note Talib Talbert DO - 08/24/2009 BONE MINERAL DENSITY (DEXA) HISTORY: 54 year old female with postmenopausal symptoms needing evaluation forosteoporosis. PROCEDURE: Using a InterExXA dual energy x-ray absorptiometry system, thepatient's bone mineral density was measured over the lumbar spine and femurs. Comparison was made to age andsex matched normal values. FINDINGS: Lumbar Spine ( L1-L4) Bone Mineral Density = 1.229 gm/cm2 Compared to young adult (T-score), difference of +0.4 StandardDeviations. The patient's spine BMD is normal when compared to that of a young adult. Left Femoral Neck Bone Mineral Density = 1.128 gm/cm2 Compared to young adult (T-score), difference of +0.6 StandardDeviations. The patient's left femoral neck BMD is normal when compared to that of ayoung adult. Right Femoral Neck Bone Mineral Density = 1.140 gm/cm2 Compared to young adult (T-score), difference of +0.7 StandardDeviations. The patient's right femoral neck BMD is normal when compared to that of ayoung adult. No prior DEXA studies are available for comparison. Dahlia Landon MD DIAGNOSTIC IMAGING ORDERABLES F inal Result * HX COLONOSCOPY (10/22/2007) Dahlia Landon MD GENERIC SURGICAL HISTORY Final Result Performing Organization Address City/State/[facility] Co de Phone Number [facility] from Last 3 Months or Most Recently Relevant to Health Maintenance Insurance [employer] PPO MCR Care Teams Tool And Die Engineer Relationship Specialty Start Date End Date Casey Dudley MD PCP - General Family Practice 10/15/11
--- OUTSIDE RECORDS SUMMARY | 2024-11-09 00:21 | XMS_ITS | Clinical Summary ---
Author Organization [facility] [address] [place] [phone] Care Team Providers Care Line Fixer Name Role Phone Casey Dudley MD Primary Care Provider Allergies Active Allergy Reactions Criticality Noted Date [...] (ASPIR-81 ORAL)Indications :heart health & history of LA Take 81 mg by mouth every morning [...] Deficiency Prevention Take 1 tablet by mouth motion study technician before breakfast Active cyclobenzaprine (FLEXERIL) 10 mg [...] positional vertigo of left ear 08/08/2020 Old LA (myocardial infarction) 02/27/2020 0 12/11/2022 Overview (12/11/2022): MIs with no sign obsruc ds on caths 2004 No sign obsruc ds, nl LV [...] with no sign obsruc ds on caths 2004 Large area anterior ischemia, nl LV fxn stress 08/11 No sign obsruc ds, nl LV fxn cath 09/11 Nl LV fxn echo 11/11 Encounters Date Type Department Care Team Description 10/25/[address] [facility] Scheduling [address] [place] [address] Romana Davidson 08/16/2024 3:00 PM NUCLEAR MEDICINE SUPERVISOR Office Visit [facility] Neurosurgery [address] [facility] Medical Office Building [address] [place] [address] Amol Mattson DO Spinal stenosis of lumbar region with neurogenic claudication (Primary Dx); Foraminal stenosis of lumbar region; Lumbar pain; Weakness of right lower extremity from Last 3 Months Immunizations Immunization Administration Dates Next Due Influenza, Quadrivalent, Spl it, Preservative Free, Intramuscular 05/29/2017 Influenza, Trivalent, Adjuvanted, Intramuscular 05/17/2019 Influenza, Trivalent, IM (MDV) 08/06/2015 ZOSTER LIVE 05/29/2017 Surgical History Surgery Date Site/Laterality Comments MENISCUS SURGERY CHOLECYSTECTOMY FL UPPER GI AIR CONTRAST W KUB 05/10/2019 Left FACET BLOCK LUMBAR SACRAL 1 LEVEL LEFT 02/20/2023 Bi lateral FACET BLOCK LUMBAR SACRAL 1 LEVEL LEFT 03/06/2023 Bi lateral Medical History Medical History Date Comments Arthritis Hypertension Migraines Myocardial infarction (HCC) Urinary tract infection Family History Medical History Relation Name Comments Aneurysm Father Heart disease Father Hypertension Father Arthritis Mother Cancer Mother Relation Name Status Comments Father Mother Social History Tobacco Use Types Packs/Day [...] on file Legal Sex Female 7:02 AM NUCLEAR MEDICINE SUPERVISOR Gender Identity Not on file Sexual Orientation Not on file Obstetrics History Last Filed Vital Signs Vital Sign Reading Time Taken Comments Blood Pressure 117/93 06/15/2024 12:20 PM NUCLEAR MEDICINE SUPERVISOR Pulse 65 06/15/2024 12:20 PM NUCLEAR MEDICINE SUPERVISOR Temperature 36 C (96.8 F) 06/15/2024 11:30 AM NUCLEAR MEDICINE SUPERVISOR Respiratory Rate 13 06/15/2024 12:20 PM NUCLEAR MEDICINE SUPERVISOR Oxygen Saturation 100% 06/15/2024 12:20 PM NUCLEAR MEDICINE SUPERVISOR Inhaled Oxygen Concentration - - Weight 84.8 kg (187 lb) 06/15/2024 8:03 AM NUCLEAR MEDICINE SUPERVISOR Height 172.7 cm (5' 8 ) 06/02/2024 10:40 AM CDT Body Mass Index 28.43 06/02/2024 10:40 AM CDT Plan of Treatment Health Maintenance Due Date Last Done Comments Albumin Creatinine Ratio, Urine 1953 Colon Cancer Screening-Colonoscopy 1953 Depression Screening 1953 Hemoglobin A1C 1953 Hepatitis C Screening 1953 Dilated Eye Exam 1953 Foot Exam 1953 Lipid Panel 1953 DTaP/Tdap/Td Vaccine (1 - Tdap) 1964 Hepatitis B Screening 1971 Pneumococcal vaccine 65+ (1 of 2 - PCV) 1972 Osteoporosis Screening-Bone Density Scan 08/24/2011 08/24/2009 Breast Cancer Screening-Mammogram 09/30/2014 014, 11/03/2011 Zoster Vaccine (2 of 3) 07/24/2017 05/29/2017 Well Visit 65+ 2018 Influenza Vaccine (Season Ended) 2025 05/17/2019, 05/29/2017, 08/06/2015 eGFR 04/11/2025 04/11/2024 Fall Risk Assessment 06/15/2025 06/15/2024 Procedures Procedure Name Priority Date/Time Associated Diagnosis [...] 9 PM CDT 04/11/2024 12:48 PM CDT us Amol Mattson DO LAB BLOOD ORDERABLES Final Resu lt [facility] Department [place] [address] from Last 3 Months or Most Recently Relevant to Health Maintenance Insurance [facility] MEDICARE [facility] MEDICARE ADVANTAGE [facility] MEDICARE Care Teams Line Fixer Relationship Specialty Start Date End Date Casey Dudley MD [address] [facility] [address] [place] [address] PCP - General 01/22/17
--- OUTSIDE RECORDS SUMMARY | 2024-11-09 00:22 | XMS_ITS | Encounter Summary ---
Author Organization [facility] Address [address] [place] [address] Care Team Providers Care Bet Taker Name Role Phone Casey Dudley MD Primary Care Provider [phone] Encounter Details Date Type Department Care Team (Late st Contact Info) Description 11/06/2005 Outpatient Historical [facility] [address] [place] [phone] Dahlia Landon MD [address] [facility] [address] [place], [place] [id number] Social History Tobacco Use Types Packs/Day Years Used Date Smoking Tobacco: Never Assessed Comments Unknown Sex and Gender Information Value Date Recorded Sex Assigned at Not on file Legal Sex Female 4:26 AM WAREHOUSE ASSISTANT Gender Identity Not on file Sexual Orientation Not on file documented as of this encounter Plan of Treatment Upcoming Encounters Date Type Department Care Team (Late st Contact Info) Description 10/24/2025 10:30 AM CDT Office Visit [facility] Heart and V[facility] - [facility] [address] [facility] [address] [place] [address] Amol Sharma MD [address] [place] [address] documented as of this encounter Visit Diagnoses Not on filedocumented in this encounter Care Teams Bet Taker Relationship Specialty Start Date End Date Casey Dudley MD PCP - General Family Practice 10/15/11 documented as of this encounter
--- OUTSIDE RECORDS SUMMARY | 2024-11-09 00:22 | XMS_ITS | Encounter Summary ---
Author Organization [facility] Address [address] [place] [address] Care Team Providers Care Sales Account Leader Name Role Phone Casey Dudley MD Primary Care Provider [phone] Encounter Details Date Type Department Care Team (Latest Contact Info) Description 08/21/2008 Outpatient Historical [facility] [address] [place] [address] [address] [place] [address] Amol Sharma MD [address] [place] [address] Cor Athrscl-Uns Vessel; AMI NOS, Unspecified (CMS/HCC) Social History Tobacco Use Types Packs/Day Years Used Date Smoking Tobacco: Never Assessed Comments No Sex and Gender Information Value Date Recorded Sex Assigned at Not on file Legal Sex Female 4:26 AM MANAGER CREDIT Gender Identity Not on file Sexual Orientation Not on file documented as of this encounter Plan of Treatment Upcoming Encounters Date Type Department Care Team (Late st Contact Info) Description 10/24/2025 10:30 AM CDT Office Visit [facility] [address] [place] [address] Amol Sharma MD [address] [place] [address] documented as of this encounter Visit Diagnoses Diagnosis Coronary atherosclerosis of unspecified type of vessel, lumbee or graft Acute myocardial infarction, unspecified site, episode of care unspecified (CMS/HCC) Acute myocardial infarction, unspecified site, episode of care unspecified documented in this encounter Care Teams Sales Account Leader Relationship Specialty Start Date End Date Casey Dudley MD PCP - General Family Practice 10/15/11 documented as of this encounter
--- OUTSIDE RECORDS SUMMARY | 2024-11-09 00:22 | XMS_ITS | Encounter Summary ---
Author Organization [facility] Address [address] [place] [address] Care Team Providers Care Tub Mender Name Role Phone Casey Dudley MD Primary Care Provider [phone] Encounter Details Date Type Department Care Team (Late st Contact Info) Description 04/27/2007 Outpatient Historical [facility] [id number] [facility] [place] [address] Amol Sharma MD [address] [facility] [address] [facility] [address] [place], [place] [id number] Social History Tobacco Use Types Packs/Day Years Used Date Smoking Tobacco: Never Assessed Comments Unknown Sex and Gender Information Value Date Recorded Sex Assigned at Not on file Legal Sex Female 4:26 AM SHAKE MAKER Gender Identity Not on file Sexual Orientation Not on file documented as of this encounter Plan of Treatment Upcoming Encounters Date Type Department Care Team (Late st Contact Info) Description 10/24/2025 10:30 AM CDT Office Visit [facility] Heart and Vascular - [facility] [address] [place] [address] Amol Sharma MD [address] [place] [address] documented as of this encounter Visit Diagnoses Not on filedocumented in this encounter Care Teams Tub Mender Relationship Specialty Start Date End Date Casey Dudley MD PCP - General Family Practice 10/15/11 documented as of this encounter
--- OUTSIDE RECORDS SUMMARY | 2024-11-09 00:22 | XMS_ITS | Encounter Summary ---
Author Organization [facility] Address [address] [place] [address] Care Team Providers Care Transactional Paralegal Name Role Phone Casey Dudley MD Primary Care Provider Encounter Details Date Type Department Care Team (Late st Contact Info) Description 07/01/2005 Outpatient Historical [facility] [address] [place] [address] Amol Rodriguez MD NO ADDRESS ON FILE Social History Tobacco Use Types Packs/Day Years Used Date Smoking Tobacco: Never Assessed Comments Unknown Sex and Gender Information Value Date Recorded Sex Assigned at Not on file Legal Sex Female 4:26 AM JAVA PORTAL DEVELOPER Gender Identity Not on file Sexual Orientation Not on file documented as of this encounter Plan of Treatment Upcoming Encounters Date Type Department Care Team (Late st Contact Info) Description 10/24/2025 10:30 AM CDT Office Visit [facility] Heart and Vascular - [facility] [address] [place] [address] [address] [place] [address] Amol Sharma MD [address] [place] [address] documented as of this encounter Visit Diagnoses Not on filedocumented in this encounter Care Teams Transactional Paralegal Relationship Specialty Start Date End Date Casey Dudley MD PCP - General Family Practice 10/15/11 documented as of this encounter
--- OUTSIDE RECORDS SUMMARY | 2024-11-09 00:22 | XMS_ITS | Encounter Summary ---
Author Organization [facility] Address [address] [place] [address] Care Team Providers Care Risk And Compliance Analytics Director Name Role Phone Casey Dudley MD Primary Care Provider [phone] Encounter Details Date Type Department Care Team (Late st Contact Info) Description 04/02/2006 Outpatient Historical [facility] [place] [id number] [facility] [place] [address] Amol Sharma MD [address] [place], [place] [phone] Social History Tobacco Use Types Packs/Day Years Used Date Smoking Tobacco: Never Assessed Comments Unknown Sex and Gender Information Value Date Recorded Sex Assigned at Not on file Legal Sex Female 4:26 AM COMMUNICATIONS PROFESSOR Gender Identity Not on file Sexual Orientation Not on file documented as of this encounter Plan of Treatment Upcoming Encounters Date Type Department Care Team (Late st Contact Info) Description 10/24/2025 10:30 AM CDT Office Visit [facility] [address] [place] [address] Amol Sharma MD [address] [place] [address] documented as of this encounter Visit Diagnoses Not on filedocumented in this encounter Care Teams Risk And Compliance Analytics Director Relationship Specialty Start Date End Date Casey Dudley MD PCP - General Family Practice 10/15/11 documented as of this encounter
--- OUTSIDE RECORDS SUMMARY | 2024-11-09 00:22 | XMS_ITS | Encounter Summary ---
Author Organization [facility] Address [address] [place] [address] Care Team Providers Care Solidworks Drafter Name Role Phone Casey Dudley MD Primary Care Provider [phone] Encounter Details Date Type Department Care Team (Late st Contact Info) Description 06/13/2005 Outpatient Historical [facility] [address] [place] [address] Amol Sharma MD [address] [place] [address] Social History Tobacco Use Types Packs/Day Years Used Date Smoking Tobacco: Never Assessed Comments Unknown Sex and Gender Information Value Date Recorded Sex Assigned at Not on file Legal Sex Female 4:26 AM LOG SKIDDER Gender Identity Not on file Sexual Orientation Not on file documented as of this encounter Plan of Treatment Upcoming Encounters Date Type Department Care Team (Late st Contact Info) Description 10/24/2025 10:30 AM CDT Office Visit [facility] Heart and Vascular - [facility] [address] [place] [address] [address] [place] [address] Amol Sharma MD [address] [place] [address] documented as of this encounter Visit Diagnoses Not on filedocumented in this encounter Care Teams Solidworks Drafter Relationship Specialty Start Date End Date Casey Dudley MD PCP - General Family Practice 10/15/11 documented as of this encounter
--- OUTSIDE RECORDS SUMMARY | 2024-11-09 00:22 | XMS_ITS | Encounter Summary ---
Author Organization [facility] Address [address] [place] [address] Care Team Providers Care Floor Plan Adjuster Name Role Phone Casey Dudley MD Primary Care Provider [phone] Encounter Details Date Type Department Care Team (Latest Contact Info) Description 06/21/2005 Outpatient Historical [facility] PATIENT IN A BED Miky Godwin MD [address] [facility] [address] [place] [address] ABNORMAL FIND-BILIARY TRACT (Primary Dx) Social History Tobacco Use Types Packs/Day Years Used Date Smoking Tobacco: Never Assessed Comments Unknown Sex and Gender Information Value Date Recorded Sex Assigned at Not on file Legal Sex Female 4:26 AM CHANGE HOUSE ATTENDANT Gender Identity Not on file Sexual Orientation Not on file documented as of this encounter Plan of Treatment Upcoming Encounters Date Type Department Care Team (Late st Contact Info) Description 10/24/2025 10:30 AM CDT Office Visit [facility] Heart and Vascular - [facility] [address] [facility] [address] [place] [address] Amol Sharma MD [address] [facility] [address] [place] [address] documented as of this encounter Procedures Procedure Name Priority Date/Time Associated Diagnosis Comments CBC WITH DIFFERENTIAL Routine 06/21/2005 8:55 AM CHANGE HOUSE ATTENDANT CBC WITH DIFFERENTIAL Routine 06/21/2005 8:55 AM CHANGE HOUSE ATTENDANT COMPREHENSIVE METABOLIC PANEL Routine 06/21/2005 8:55 AM CHANGE HOUSE ATTENDANT documented in this encounter Results * CBC WITH DIFFERENTIAL (06/21/2005 8:55 AM CHANGE HOUSE ATTENDANT) NEUTROPHILS 58 45 - 70 % INTERFAC E SYSTEM LYMPHOCYTES 32 16 - 45 % INTERFAC E SYSTEM MONOCYTES 7 3 - 13 % INTERFACE SYSTEM EOSINOPHILS 2 0 - 7 % INTERFAC E SYSTEM BASOPHILS 1 0 - 2 % INTERFACE SYSTEM NEUTROPHIL ABSOLUTE 3.17 1.90 - 7.00 K/uL INTERFACE SYSTEM LYMPHOCYTE ABSOLUTE 1.75 0.70 - 4.50 K/uL INTERFACE SYSTEM MONOCYTE ABSOLUTE 0.39 0.10 - 1.30 K/uL INTERFACE SYSTEM EOSINOPHIL ABSOLUTE 0.13 0.00 - 0.70 K/uL INTERFACE SYSTEM BASOPHILS ABSOLUTE 0.03 0.00 - 0.20 K/uL INTERFACE SYSTEM 06/21/2005 8:55 AM CHANGE HOUSE ATTENDANT us Miky Godwin MD HEMATOLOGY ORDERABLES Final R esult Performing Organization Address City/[facility] Co de Phone Number INTERFACE SYSTEM Refer to clinic/hospital department * CBC WITH DIFFERENTIAL (06/21/2005 8:55 AM CHANGE HOUSE ATTENDANT) WBC 5.5 4.0 - 9.8 K/uL INTERFACE SYSTEM RBC 4.67 3.90 - 4.90 M/uL INTERFACE SYSTEM HEMOGLOBIN 13.6 11.8 - 14.8 g/dL INTERFACE SYSTEM HEMATOCRIT 40.2 35.5 - 44.0 % INTERFACE SYSTEM MCV 86.1 82.0 - 99.0 fL INTERFACE SYSTEM MCH 29.1 27.2 - 32.6 pg INTERFACE SYSTEM MCHC 33.8 31.5 - 35.5 % INTERFACE SYSTEM RDW 13.0 11.5 - 14.5 % INTERFACE SYSTEM RDW-STDEV 41.0 37.1 - 48.7 fL INTERFACE SYSTEM PLATELETS 251 140 - 350 K/uL INTERFACE SYSTEM MPV 9.8 9.3 - 12.4 fL INTERFACE SYSTEM 06/21/2005 8:55 AM CHANGE HOUSE ATTENDANT us Mkiy Godwin MD HEMATOLOGY ORDERABLES Final R esult Performing Organization Address City/[facility]/ZIP Co de Phone Number INTERFACE SYSTEM Refer to clinic/hospital department * (ABNORMAL) COMPREHENSIVE METABOLIC PANEL (06/21/2005 8:55 AM CHANGE HOUSE ATTENDANT) GLUCOSE 115(H) 65 - 109 mg/dL INTERFACE SYSTEM CREATININE 1.0 0.4 - 1.2 mg/dL INTERFACE SYSTEM CALCIUM 9.1 8.6 - 10.2 mg/dL INTERFACE SYSTEM AST 18 12 - 32 U/L INTERFACE SYSTEM ALKALINE PHOSPHATASE 83 35 - 104 U/L INTERFACE SYSTEM BILIRUBIN TOTAL 0.6 0.2 - 1.0 mg/dL INTERFACE SYSTEM ALBUMIN 4.1 3.4 - 4.8 g/dL INTERFACE SYSTEM TOTAL PROTEIN 7.4 6.3 - 8.6 g/dL INTERFACE SYSTEM ALT 14 0 - 31 U/L INTERFACE SYSTEM BUN 10 6 - 20 mg/dL INTERFACE SYSTEM SODIUM 137 135 - 145 mmol/L INTERFACE SYSTEM POTASSIUM 3.9 3.5 - 4.9 mmol/L INTERFACE SYSTEM CHLORIDE 102 96 - 108 mmol/L INTERFACE SYSTEM CO2 27 22 - 30 mmol/L INTERFACE SYSTEM 06/21/2005 8:55 AM CHANGE HOUSE ATTENDANT us Miky Godwin MD CHEMISTRY ORDERABLES Final Re sult INTERFACE SYSTEM Refer to clinic/hospital department documented in this encounter Visit Diagnoses Diagnosis Nonspecific (abnormal) findings on radiological and other examination of biliary tract- Primary documented in this encounter Care Teams Floor Plan Adjuster Relationship Specialty Start Date End Date Casey Dudley MD PCP - General Family Practice 10/15/11 documented as of this encounter
--- OUTSIDE RECORDS SUMMARY | 2024-11-09 00:22 | XMS_ITS | Encounter Summary ---
Author Organization [facility] Address [address] [place] [address] Care Team Providers Care Barrel Filler Name Role Phone Casey Dudley MD Primary Care Provider [phone] Encounter Details Date Type Department Care Team (Late Contact Info) Description 12/10/2006 Outpatient Historical [facility] [address] [facility] [address] [place] [phone] Dahlia Landon MD [address] [facility] [address] [place], [place] [phone] Social History Tobacco Use Types Packs/Day Years Used Date Smoking Tobacco: Never Assessed Comments Unknown Sex and Gender Information Value Date Recorded Sex Assigned at Not on file Legal Sex Female 4:26 AM HEAVY EQUIPMENT SALES MANAGER Gender Identity Not on file Sexual Orientation Not on file documented as of this encounter Plan of Treatment Upcoming Encounters Date Type Department Care Team (Late st Contact Info) Description 10/24/2025 10:30 AM CDT Office Visit [facility] Heart and Vascular - [facility] [address] [facility] [address] [place] [address] Amol Sharma MD [address] [facility] [address] [place] [address] documented as of this encounter Visit Diagnoses Not on filedocumented in this encounter Care Teams Barrel Filler Relationship Specialty Start Date End Date Casey Dudley MD PCP - General Family Practice 10/15/11 documented as of this encounter
--- OUTSIDE RECORDS SUMMARY | 2024-11-09 00:22 | XMS_ITS | Encounter Summary ---
Author Organization [facility] Address [address] [place] [address] Care Team Providers Care Patient Financial Services Manager Name Role Phone Casey Dudley MD Primary Care Provider [phone] Encounter Details Date Type Department Care Team (Late Contact Info) Description 04/27/2007 Outpatient Historical [facility] [address] [facility] [address] [place] [phone] Dahlia Landon MD [address] [facility] [address] [place], [place] [phone] Social History Tobacco Use Types Packs/Day Years Used Date Smoking Tobacco: Never Assessed Comments Unknown Sex and Gender Information Value Date Recorded Sex Assigned at Not on file Legal Sex Female 4:26 AM TRANSPORTATION MODELER Gender Identity Not on file Sexual Orientation Not on file documented as of this encounter Plan of Treatment Upcoming Encounters Date Type Department Care Team (Late st Contact Info) Description 10/24/2025 10:30 AM CDT Office Visit [facility] Heart and Vascular - [facility] [address] [facility] [address] [place] [address] Amol Sharma MD [address] [facility] [address] [place] [address] documented as of this encounter Visit Diagnoses Not on filedocumented in this encounter Care Teams Patient Financial Services Manager Relationship Specialty Start Date End Date Casey Dudley MD PCP - General Family Practice 10/15/11 documented as of this encounter
--- OUTSIDE RECORDS SUMMARY | 2024-11-09 00:22 | XMS_ITS | Encounter Summary ---
Author Organization [facility] Address [address] [place] [address] Care Team Providers Care Respiratory Medicine Physician Name Role Phone Casey Dudley MD Primary Care Provider [phone] Encounter Details Date Type Department Care Team (Late st Contact Info) Description 06/12/2005 Outpatient Historical [facility] ([facility]) [address] [place] [address] Brandon Flowers MD [address] [place] [phone] Social History Tobacco Use Types Packs/Day Years Used Date Smoking Tobacco: Never Assessed Comments Unknown Sex and Gender Information Value Date Recorded Sex Assigned at Not on file Legal Sex Female 4:26 AM APPLICATIONS PACKAGER Gender Identity Not on file Sexual Orientation Not on file documented as of this encounter Plan of Treatment Upcoming Encounters Date Type Department Care Team (Late st Contact Info) Description 10/24/2025 10:30 AM CDT Office Visit [facility] Heart and Vascular - [facility] [address] [facility] [address] [place] [address] Amol Sharma MD [address] [facility] [address] [place] [address] documented as of this encounter Visit Diagnoses Not on filedocumented in this encounter Care Teams Respiratory Medicine Physician Relationship Specialty Start Date End Date Casey Dudley MD PCP - General Family Practice 10/15/11 documented as of this encounter
--- OUTSIDE RECORDS SUMMARY | 2024-11-09 00:22 | XMS_ITS | Encounter Summary ---
Author Organization [facility] Address [address] [place] [address] Care Team Providers Care Steward/Stewardess Chief Cargo Vessel Name Role Phone Casey Dudley MD Primary Care Provider [phone] Encounter Details Date Type Department Care Team (Late st Contact Info) Description 03/26/2006 Outpatient Historical [facility] [place] [id number] [facility] [place] [address] Amol Sharma MD [address] [place], [place] [id number] Social History Tobacco Use Types Packs/Day Years Used Date Smoking Tobacco: Never Assessed Comments Unknown Sex and Gender Information Value Date Recorded Sex Assigned at Not on file Legal Sex Female 4:26 AM BUSINESS TRAVEL CONSULTANT Gender Identity Not on file Sexual Orientation Not on file documented as of this encounter Plan of Treatment Upcoming Encounters Date Type Department Care Team (Late st Contact Info) Description 10/24/2025 10:30 AM CDT Office Visit [facility] - [facility] [address] [place] [address] Amol Sharma MD [address] [place] [address] documented as of this encounter Visit Diagnoses Not on filedocumented in this encounter Care Teams Steward/Stewardess Chief Cargo Vessel Relationship Specialty Start Date End Date Casey Dudley MD PCP - General Family Practice 10/15/11 documented as of this encounter
--- OUTSIDE RECORDS SUMMARY | 2024-11-09 00:22 | XMS_ITS | Encounter Summary ---
Author Organization [facility] Address [address] [place] [address] Care Team Providers Care Ton Cylinder Inspector Name Role Phone Casey Dudley MD Primary Care Provider [phone] Encounter Details Date Type Department Care Team (Late Contact Info) Description 01/12/2007 Outpatient Historical [facility] [address] [facility] [address] [place] [phone] Dahlia Landon MD [address] [facility] [address] [address] [place], [place] [id number] Social History Tobacco Use Types Packs/Day Years Used Date Smoking Tobacco: Never Assessed Comments Unknown Sex and Gender Information Value Date Recorded Sex Assigned at Not on file Legal Sex Female 4:26 AM WIND TURBINE TECHNICIAN Gender Identity Not on file Sexual Orientation Not on file documented as of this encounter Plan of Treatment Upcoming Encounters Date Type Department Care Team (Late st Contact Info) Description 10/24/2025 10:30 AM CDT Office Visit [facility] - [facility] [address] [facility] [address] [place] [address] Amol Sharma MD [address] [facility] [address] [place] [address] documented as of this encounter Visit Diagnoses Not on filedocumented in this encounter Care Teams Ton Cylinder Inspector Relationship Specialty Start Date End Date Casey Dudley MD PCP - General Family Practice 10/15/11 documented as of this encounter
--- OUTSIDE RECORDS SUMMARY | 2024-11-09 00:22 | XMS_ITS | Encounter Summary ---
Author Organization [facility] Address [address] [place] [address] Care Team Providers Care License Examiner Name Role Phone Casey Dudley MD Primary Care Provider [phone] Encounter Details Date Type Department Care Team (Late st Contact Info) Description 05/13/2007 Outpatient Historical [facility] [address] [facility] [address] [place] [address] Dahlia Landon MD [address] [facility] [address] [place], [place] [id number] Social History Tobacco Use Types Packs/Day Years Used Date Smoking Tobacco: Never Assessed Comments Unknown Sex and Gender Information Value Date Recorded Sex Assigned at Not on file Legal Sex Female 4:26 AM CASE COORDINATOR Gender Identity Not on file Sexual Orientation Not on file documented as of this encounter Plan of Treatment Upcoming Encounters Date Type Department Care Team (Late st Contact Info) Description 10/24/2025 10:30 AM CDT Office Visit [facility] - [facility] [address] [place] [address] Amol Sharma MD [address] [facility] [address] [place] [address] documented as of this encounter Visit Diagnoses Not on filedocumented in this encounter Care Teams License Examiner Relationship Specialty Start Date End Date Casey Dudley MD PCP - General Family Practice 10/15/11 documented as of this encounter
[2024-11-09 06:32] VITALS: BP 129/64; PULSE 78; RESP 20; TEMP 35.9; O2SAT 100
[2024-11-09] MEDS: LACTATED RINGERS 1,000 ML 150 ML IV CONT (06:45)
--- NOTE | 2024-11-09 07:24 | PM.IMHP ---
H&P: HPI History of Present Illness Date/Time: 11/09/24 07:24 Chief Complaint: Screening colonoscopy Narrative: This is the patient's 2nd colonoscopy after more than 10 years.. There are no GI symptoms and there is no family history of colorectal cancer. Review of Systems Review of Systems: All systems reviewed & are unremarkable except as noted in HPI and below PMFSH Past Medical History Medical History Anxiety CAD (coronary artery disease) Elevated cholesterol GERD (gastroesophageal reflux disease) History of [place] (myocardial infarction) IFG (impaired fasting glucose) Prinzmetal angina Surgical History Surgical History History of laparoscopic cholecystectomy History of surgical removal of meniscus of knee Family History Family History Father Family history of coronary artery disease Social History Social History Smoking status: Never smoker Alcohol intake: never Drinks per week: 2 Substance use: never Living arrangements: alone Occupation/Education: retired Gender identity (if verbalized by the patient): Female Spiritual care concerns: No Meds Home Medications and Allergies Home Medications ?Medication ?Instructions ?Recorded ?Confirmed ?Type aspirin 81 mg tablet,delayed 81 mg PO DAILY 06/09/19 11/09/24 History release (Adult Low Dose Aspirin) meclizine 25 mg tablet 25 mg PO TID PRN dizziness #60 tabs 09/16/19 11/09/24 Rx cyclobenzaprine 5 mg tablet 5 mg PO TID PRN muscle spasm #60 09/18/23 11/09/24 Rx tabs enalapril maleate 5 mg tablet See Rx Instructions .Route 11/15/23 11/09/24 Rx .COMPLEX #90 tabs diltiazem HCl 240 mg 240 mg PO DAILY #90 caps 04/20/24 11/09/24 Rx capsule,extended release 24 hr, controlled atorvastatin 20 mg tablet 20 mg PO DAILY #90 tabs 10/28/24 11/09/24 Rx omeprazole 20 mg capsule,delayed 20 mg PO DAILY #90 caps 10/28/24 11/09/24 Rx release actalin thyroid health 11/02/24 History gabapentin 600 mg tablet 900 mg PO BID 11/02/24 11/09/24 History Allergies Allergy/AdvReac Type Severity Reaction Status Date / Time diclofenac AdvReac Mild Blister Verified 11/09/24 06:34 Vital Signs Vital Signs - 24 hr 11/09/24 06:32 Temperature 96.6 F L Pulse Rate 78 Respiratory Rate 20 Blood Pressure 129/64 Pulse Oximetry 100 Exam Const: General: cooperative and healthy appearing Resp: Effort & Inspection: normal respiratory effort and able to speak in complete sentences Auscultation: clear to auscultation bilaterally Cardio: Rate: regular rate Rhythm: regular rhythm GI: Inspection: normal to inspection GI Palp: No No hepatosplenomegaly present Auscultation: normal bowel sounds Rectal Exam: deferred Skin: General skin exam: normal color Psych: Appearance: grossly normal Mental Status: mental status grossly normal Assessment and Plan Assessment and plan (1) Encounter for screening colonoscopy: Code(s): Z12.11 - Encounter for screening for malignant neoplasm of colon Status: Acute Assessment and Plan: The patient is deemed a good candidate for the procedure. Consent signed. Will proceed.
--- NOTE | 2024-11-09 07:28 | P.PNAN_ITS ---
Anes - Initial Pre Proc Eval Procedure: Operation Date: 11/09/24 07:30 Proposed Procedures p Screening Colonoscopy - Arturo Perera MD Date/Time: 11/09/24 07:28 Surgeon: Arturo Perera MD Pre Op Diagnosis: Screening for malignant neoplasm of colon & rectum Patient Data Age: 69 Gender: F Height: 1.73 m Weight: 88.6 kg Last Vital Signs Temp 35.9 C L 11/09/24 06:32 Pulse 78 11/09/24 06:32 Resp 20 11/09/24 06:32 BP 129/64 11/09/24 06:32 Pulse Ox 100 11/09/24 06:32 Allergies Allergy/AdvReac Type Severity Reaction Status Date / Time diclofenac AdvReac Mild Blister Verified 11/09/24 06:34 Home Medications ?Medication ?Instructions ?Recorded ?Confirmed ?Type aspirin 81 mg tablet,delayed 81 mg PO DAILY 06/09/19 11/09/24 History release (Adult Low Dose Aspirin) meclizine 25 mg tablet 25 mg PO TID PRN dizziness #60 tabs 09/16/19 11/09/24 Rx cyclobenzaprine 5 mg tablet 5 mg PO TID PRN muscle spasm #60 09/18/23 11/09/24 Rx tabs enalapril maleate 5 mg tablet See Rx Instructions .Route 11/15/23 11/09/24 Rx .COMPLEX #90 tabs diltiazem HCl 240 mg 240 mg PO DAILY #90 caps 04/20/24 11/09/24 Rx capsule,extended release 24 hr, controlled atorvastatin 20 mg tablet 20 mg PO DAILY #90 tabs 10/28/24 11/09/24 Rx omeprazole 20 mg capsule,delayed 20 mg PO DAILY #90 caps 10/28/24 11/09/24 Rx release actalin thyroid health 11/02/24 History gabapentin 600 mg tablet 900 mg PO BID 11/02/24 11/09/24 History Patient hx anesthesia problems: none Family hx anesthesia problems: none Results Review: All pre-operative results and documents have been reviewed as part of the pre- operative evaluation. [facility] Past Medical History Medical History GERD (gastroesophageal reflux disease) Anxiety IFG (impaired fasting glucose) Elevated cholesterol Prinzmetal angina History of [place] (myocardial infarction) CAD (coronary artery disease) Surgical History Surgical History History of laparoscopic cholecystectomy History of surgical removal of meniscus of knee Family History Family History Father Family history of coronary artery disease Social History Social History Smoking status: Never smoker Alcohol intake: never Drinks per week: 2 Substance use: never Living arrangements: alone Occupation/Education: retired Gender identity (if verbalized by the patient): Female Spiritual care concerns: No Anes - Eval Final PreProcedure Day of Procedure 11/09/24 07:28 Patient weight: overweight Heart: regular rate and rhythm Lungs: clear to auscultation Airway: Mallampati scale class II Neurological: alert and oriented Last oral intake: >/= 8 hours ASA classification: III Emergent: no Anesthetic plan: proceed Anesthesia type and monitoring: general GIVS and standard monitoring Results Review: All pre-operative results and documents have been reviewed as part of the pre- operative evaluation. Informed Consent: The patient's anesthetic plan and its attendant risks and benefits were discussed with the patient/family/POA. Questions were solicited and answers provided to the satisfaction of the patient/family/POA.
--- NOTE | 2024-11-09 08:06 | SUR.PREOP ---
Patient taken to procedure room. IV found to be infiltrated. Unable to gain new access. Patient brought back to pre-op to await ultrasound for IV access.
--- NOTE | 2024-11-09 08:42 | SUR.OPER ---
Patient arrived in procedure room at 0735 (5 min delay). It was noted patients IV infiltrated and 2 IV attempts were made to start a new IV site that weren't successful. Patient was moved from procedure room out to pre-op and ultrasound was notified. Due to this, the procedure was delayed.
[2024-11-09 08:58] VITALS: BP 104/52; PULSE 69; RESP 18; O2SAT 100
[2024-11-09 09:08] VITALS: BP 114/53; PULSE 72; RESP 20; O2SAT 100
[2024-11-09 09:18] VITALS: BP 109/85; PULSE 69; RESP 22; O2SAT 100
== END 2024-11-09 09:36 | disposition home or self-care (01) ==
PROVIDERS: PCP Family Medicine; Referring Provider Physician Assistant; Visit Provider Internal Medicine Gastroenterology
PROC: 0DJD8ZZ Inspection of Lower Intestinal Tract, Via Natural or Artificial Opening Endoscopic (ICD-10-PCS; CPT 45378; principal; 2024-11-09 07:30)
DX: Z12.11 Encounter for screening for malignant neoplasm of colon (principal); K57.30 Diverticulosis of large intestine without perforation or abscess without bleeding; K64.8 Other hemorrhoids
CPT/HCPCS: G0121; J2003; J2704; J7120

== ENCOUNTER 2025-05-27 12:14 | Outpatient (CLI) | payer MEDICARE, SELFPAY ==
--- OUTSIDE RECORDS SUMMARY | 2024-08-11 07:40 | XMS_ITS ---
Author Organization [facility] Address [address] [place], [place] [id number] Care Team Providers Care Bender Machine Operator Name Role Phone GALE GONZALES Unavailable [phone] Casey Dudley Unavailable Unavailable REASON FOR VISIT *Orthotic pick-up Medications Medication SIG (Take, Route, Frequency, Duration) Notes Start Date End Date Status Omeprazole 20 MG Oral; Duration: 90 Days Active Gabapentin 600 MG Oral; Duration: 13 Days Active Methocarbamol 500 MG Oral; Duration: 6 Days Active Dilt-XR 240 MG Oral; Duration: 90 Days Active aspirin 81 MG Delayed Release Oral Tablet ORAL aspirin 81 MG Delayed Release Oral TabletOriginal Medicationaspirin 81 MG Delayed Release Oral Tablet *Reorder from [employer] for eRx and Interaction Alerts* 03/06/2021 Active dilTIAZem HCl ER 240 MG Oral; Duration: 90 Days Active Atorvastatin Calcium 20 MG Oral; Duration: 11 Days Active Enalapril Maleate 5 MG Oral; Duration: 90 Days Active Vital Signs Height 68 in 08/11/2024 Weight 210 lbs 08/11/2024 BMI 31.93 kg/m2 08/11/2024 Height-cm 172.72 cm 08/11/2024 Weight-kg 95.26 kg 08/11/2024 Encounters Encounter Location Date Provider Diagnosis [facility] [address] [place], [place] [id number] 08/11/2024 GALE GONZALES Plantar fasciitis M72.2 ; Pain in right foot M79.671 and Left foot pain M79.672 Assessments Encounter Date Diagnosis (ICD Code) Assessment Notes Treatment Notes Treatment Clinical Notes Section Notes 08/11/2024 Plantar fasciitis (ICD-10 - M72.2) Orthotic dispense: The orthotic devices were dispensed and fitted. It was noted that the orthotic conformed well to the patients foot in the subtalar joint neutral position. 08/11/2024 Pain in right foot (ICD-10 - M79.671) 08/11/2024 Left foot pain (ICD-10 - M79.672) Plan Of Treatment Treatment Notes Assessment Notes Plantar fasciitis Orthotic dispense: T he orthotic devices were dispensed and fitted. It was noted that the orthotic conformed well to the patients foot in the subtalar joint neutral position. Progress Notes * KATHE HOYTDOB:[birth year] (70 yo F)Acc No.[id number]:08/11/2024 Patient: Lucia LYNCHKATHE BLACKMON Provider: Fadumo Gonzales DPM :1955 A ge:69 Y S ex:Female Date:08/11/2024 Address:[address] [place], [place] [id number] Subjective: * Chief Complaints: * 1 . *Orthotic pick-up. * HPI: H PI: Follow Up Visit P atient presents for follow-up visit for orthotic pick-up. Patient state she has old orthotics, and they were staring to fall a part. She states she also had her right great toenail clipped last visit, and it is doing fine. Patient states their problem is improving. MA: sea. * Medical History: A marshall reflux, Arthritis, Angina. * Surgical History: b unionectomy , Gall Bladder , Back surgery . * Family History: F ather: PRN - Father: :: CHF,,known absent . M other: PRN - Mother: :: Cancer,,known absent . * Social History: M igrated Social History: M igrated Social History: History of tobacco use : , Smoking Status : Never used tobacco , Alcohol intake :. * Medications: T aking aspirin 81 MG Delayed Release Oral Tablet ORAL , Notes to Pharmacist: aspirin 81 MG Delayed Release Oral TabletOriginal Medicationaspirin 81 MG Delayed Release Oral Tablet *Reorder from [employer] for eRx and Interaction Alerts*, Taking Omeprazole 20 MG Capsule Delayed Release Oral , Taking Gabapentin 600 MG Tablet Oral , Taking Methocarbamol 500 MG Tablet Oral , Taking Dilt-XR 240 MG Capsule Extended Release 24 Hour Oral , Taking dilTIAZem HCl ER 240 MG Capsule Extended Release 24 Hour Oral , Taking Atorvastatin Calcium 20 MG Tablet Oral , Taking Enalapril Maleate 5 MG Tablet Oral , Medication List reviewed and reconciled with the patient Objective: * Vitals: W t:210lbs, Wt-k.26 kg, Ht: 68 in, Ht-cm: 172.72 cm, BMI:31.93Index, Body Surface Area: 2.14. * Examination: C onstitutional: Constitutional T he patient is awake, alert, well developed, well groomed and well nourished. . D ermatologic: Skin findings: S kin is warm, dry, supple with no breaks in the skin. . Nail pathology: N ails 1-5 bilateral are normal in appearance and thickness. No discoloration. . Ulcer: T here is no evidence of ulceration noted at this time . Hyperkeratotic Skin Lesion T here is no evidence of hyperkeratosis . M usculoskeletal: Muscle Strength M uscle strength is 5/5 in regards to dorsiflexion, plantarflexion, inversion, and eversion in bilateral lower extremities. . Foot Structure T he foot structure is noted to be normal bilaterally . Pain on palpation T here is pain on palpation of medial band of the right plantar fascia near its attachment to the calcaneus . Gait T here is normal gait noted . N eurologic: Muscle power: 5 /5 bilaterally . Gross sensation G ross sensation is intact to light touch. . V ascular: Dorsalis pedis pulse: 2 /4 bilateral . Posterior tibial pulse: 2 /4 bilaterally . Capillary refill: l ess than 3 seconds bilaterally . Temperature gradient: w ithin normal limits . ? Assessment: * Assessment: 1. P lantar fasciitis - M72.2 (Primary) 2 . P ain in right foot - M79.671? 3. L eft foot pain - M79.672 Plan: * Treatment: * Preventive Medicine: Screenings: F all risk screening Fall Risk Assessment: N o falls in the past year * Billing Information: * Visit Code: 22932 Office Visit, Est Pt., Level 3. * Procedure Codes: * Electronic signature of GALE GONZALES DPM on 05/27/2025 at 12:17 PM CDT Sign off status: Pending * Provider: Fadumo Gonzales DPM Date: 0 08/11/2024 Generated for Alainai yefri/Pelon/eTransmitting on: 1 12:17 PM CDT History and Physical Notes * HPI (History of Present Illness) Category Sub-Category Detail Notes Category Not es HPI Follow Up Visit Patient presents for follow-up visit for orthotic pick-up. Patient state she has old orthotics, and they were staring to fall a part. She states she also had her right great toenail clipped last visit, and it is doing fine. Patient states their problem is improving. MA: sea Examination Category Sub-Category Detail Notes Category Not es Constitutional Constitutional The patient is a wake, alert, well developed, well groomed and well nourished. Dermatologic Skin findings: Skin is warm, dr y, supple with no breaks in the skin. Nail pathology: Nails 1-5 bilateral are normal in appearance and thickness. No discoloration. Ulcer: There is no evidence of ulceration noted at this time Hyperkeratotic Skin Lesion There is no e vidence of hyperkeratosis Musculoskeletal Muscle Strength Muscle strength is 5/5 in regards to dorsiflexion, plantarflexion, inversion, and eversion in bilateral lower extremities. Pain on palpation There is pain on pal pation of medial band of the right plantar fascia near its attachment to the calcaneus Foot Structure The foot structure i s noted to be normal bilaterally Gait There is normal gait noted Neurologic Muscle power: 5/5 bilaterally Gross sensation Gross sensation is i ntact to light touch. Vascular Dorsalis pedis pulse: 2/4 bilateral Posterior tibial pulse: 2/4 bilaterally Capillary refill: less than 3 seconds bilaterally Temperature gradient: within normal limi ts
--- OUTSIDE RECORDS SUMMARY | 2025-05-27 12:17 | XMS_ITS | Clinical Summary ---
Author Organization [facility] Address [address] [place] [address] Care Team Providers Care Rack Puller Name Role Phone Casey Dudley MD Primary [...] (ASPIR-81 ORAL)Indications :heart health & history of SD Take 81 mg by mouth every morning [...] times a day as needed (pain) Active multivitamin tabletIndication s:Vitamin Deficiency Prevention Take 1 tablet by mouth pile driver operator before breakfast Active cyclobenzaprine (FLEXERIL) 10 mg tabletIndication s:Muscle Spasm Take 1 tablet (10 mg total) by mouth 2 (two) times a day as needed for muscle spasms for muscle spasms 30 tablet 2 5 Active gabapentin (NEURONTIN) 600 mg tablet Take 1.5 tablets (900 mg total) by mouth 3 (three) times a day 405 tablet 3 5 01/18/20 26 Active Active Problems Problem Noted Date Diagnosed [...] positional vertigo of left ear 08/08/2020 Old [place] (myocardial infarction) 02/27/2020 0 12/11/2022 Overview (12/11/2022): [...] on file Legal Sex Female 7:02 AM CHIEF KNOWLEDGE OFFICER Gender Identity Not on file Sexual Orientation Not on file Obstetrics History Last Filed Vital Signs Vital Sign Reading Time Taken Comments Blood Pressure 117/93 06/15/2024 12:20 PM CHIEF KNOWLEDGE OFFICER Pulse 65 06/15/2024 12:20 PM CHIEF KNOWLEDGE OFFICER Temperature 36 C (96.8 F) 06/15/2024 11:30 AM CHIEF KNOWLEDGE OFFICER Respiratory Rate 13 06/15/2024 12:20 PM CHIEF KNOWLEDGE OFFICER Oxygen Saturation 100% 06/15/2024 12:20 PM CHIEF KNOWLEDGE OFFICER Inhaled Oxygen Concentration - - Weight 84.8 kg (187 lb) 06/15/2024 8:03 AM CHIEF KNOWLEDGE OFFICER Height 172.7 cm (5' 8) 06/02/2024 10:40 AM CDT Body Mass Index [...] Density Scan 08/24/2011 08/24/2009 Breast Cancer Screening-Mammogram 09/30/201409/30/ 014, 11/03/2011 Zoster Vaccine (2 of 3) 07/24/2017 05/29/2017 Well Visit 65+ 2018 Influenza Vaccine (#1) 2025 9, 05/29/2017, 08/06/2015 eGFR 04/11/2025 04/11/2024 Fall Risk [...] LAB BLOOD ORDERABLES Final Resu lt [facility] Department [place] [address] from Last 3 Months or Most Recently Relevant to Health Maintenance Insurance [employer] MEDICARE [facility] MEDICARE ADVANTAGE [facility] MEDICARE Care Teams Rack Puller Relationship Specialty Start Date End Date Casey Dudley MD [address] [address] PCP - General 01/22/17
--- OUTSIDE RECORDS SUMMARY | 2025-05-27 12:17 | XMS_ITS | Patient Health Record ---
Author Organization [facility] Address [address] [place], [place] [address] Care Team Providers Care Bill Adjuster Name Role Phone GALE MEDINA Unavailable [phone] Casey Dudley Unavailable Unavailable Allergies No Known Allergies Reason For Referral No Information Medications Medication SIG (Take, Route, Frequency, Duration) [...] MG Delayed Release Oral Tablet *Reorder from [employer] for eRx and Interaction Alerts* 03/06/2021 Active dilTIAZem HCl ER 240 MG Oral; Duration: 90 Days Active Atorvastatin Calcium 20 MG Oral; Duration: 11 Days Active Enalapril Maleate 5 MG Oral; Duration: 90 Days Active Vital Signs Height-cm 172.72 cm 08/11/2024 Weight-kg 95.26 kg 08/11/2024 Height 68 in 08/11/2024 Weight 210 lbs 08/11/2024 BMI 31.93 kg/m2 08/11/2024 Encounters Encounter Location Date Provider Diagnosis [facility] [address] [place], [place] [id number] 08/11/2024 GALE MEDINA Plantar fasciitis M72.2 ; Pain in right foot M79.671 and Left foot pain M79.672 [facility] [address] [place], [place] [id number] 07/14/2024 GALE MEDINA Plantar fasciitis M72.2 ; Pain in right foot M79.671 and Left foot pain M79.672 Assessments Encounter Date Diagnosis (ICD Code) Assessment Notes Treatment Notes Treatment Clinical Notes Section Notes 07/14/2024 Pain in right foot (ICD-10 - M79.671) 07/14/2024 Plantar fasciitis (ICD-10 - M72.2) 08/11/2024 Plantar fasciitis (ICD-10 - M72.2) Orthotic dispense: The orthotic devices were dispensed and fitted. It was noted that the orthotic conformed well to the patients foot in the subtalar joint neutral position. 07/14/2024 Left foot pain (ICD-10 - M79.672) 08/11/2024 Pain in right foot (ICD-10 - M79.671) 08/11/2024 Left foot pain (ICD-10 - M79.672) 07/14/2024 Other Orthotic casting: The patient was casted for functional orthotic devices. This was done in the subtalar joint neutral position in a non-weightbeari ng fashion. The patient will follow-up in 3 weeks time to be dispensed and fitted with the devices. Plan Of Treatment No Information Insurance Providers Payer Name Payer Address Payer Phone Subscriber Number Group Number Insured Name Patient Relationship to Insured Coverage Start Date Coverage End Date [employer] [address] [facility] [place] [phone] [id number] KATHE HOYT Self - patient is the insured Medical (General) History Medical History History ICD Code acid reflux Arthritis angina Surgical History Surgery Date(Month/Year) bunionectomy Gall Bladder Back surgery
--- OUTSIDE RECORDS SUMMARY | 2025-05-27 12:17 | XMS_ITS | Encounter Summary ---
Author Organization [facility] Address [address] [place] [address] Care Team Providers Care Generation Engineer Name Role Phone Casey Dudley MD Primary Care Provider [phone] Encounter Details Date Type Department Care Team (Latest Contact Info) Description 11/20/2001 Inpatient Historical [facility] PATIENT IN A BED Michelle Santana MD [address] [address] [place] [facility] (Primary Dx) Social History Tobacco Use Types Packs/Day Years Used Date Smoking Tobacco: Never Assessed Comments Unknown Sex and Gender Information Value Date Recorded Sex Assigned at Not on file Legal Sex Female 4:26 AM WEATHERIZATION OPERATIONS MANAGER Gender Identity Not on file Sexual Orientation Not on file documented as of this encounter Plan of Treatment Upcoming Encounters Date Type Department Care Team (Late st Contact Info) Description 10/24/2025 10:30 AM CDT Office Visit [facility] Heart and Vascular - [facility] [address] [place] [address] Amol Sharma MD [address] [place] [address] documented as of this encounter Visit Diagnoses Diagnosis Acute myocardial infarction, subendocardial infarction, initial episode of care- Primary documented in this encounter Care Teams Generation Engineer Relationship Specialty Start Date End Date Casey Dudley MD PCP - General Family Practice 10/15/11 documented as of this encounter
--- OUTSIDE RECORDS SUMMARY | 2025-05-27 12:17 | XMS_ITS | Encounter Summary ---
Author Organization [facility] Address [address] [place] [address] Care Team Providers Care Model Builder Display Name Role Phone Casey Dudley MD Primary Care Provider Encounter Details Date Type Department Care Team (Late st Contact Info) Description 05/20/2005 Outpatient Historical [facility] [address] [place] [address] Amol Rodriguez MD NO ADDRESS ON FILE Social History Tobacco Use Types Packs/Day Years Used Date Smoking Tobacco: Never Assessed Comments Unknown Sex and Gender Information Value Date Recorded Sex Assigned at Not on file Legal Sex Female 4:26 AM CRIME LAB ANALYST Gender Identity Not on file Sexual Orientation Not on file documented as of this encounter Plan of Treatment Upcoming Encounters Date Type Department Care Team (Late st Contact Info) Description 10/24/2025 10:30 AM CDT Office Visit [facility] Heart and Vascular - [facility] [address] [place] [address] [place] [address] Amol Sharma MD [address] [place] [address] documented as of this encounter Visit Diagnoses Not on filedocumented in this encounter Care Teams Model Builder Display Relationship Specialty Start Date End Date Casey Dudley MD PCP - General Family Practice 10/15/11 documented as of this encounter
--- OUTSIDE RECORDS SUMMARY | 2025-05-27 12:17 | XMS_ITS | Encounter Summary ---
Author Organization [facility] Address [address] [place] [address] Care Team Providers Care Career Services Coordinator Name Role Phone Casey Dudley MD Primary Care Provider [phone] Encounter Details Date Type Department Care Team (Late st Contact Info) Description 09/18/2004 Outpatient Historical [facility] [address] [place] [phone] Dahlia Landon MD [address] [facility] [address] [place], [place] [id number] Social History Tobacco Use Types Packs/Day Years Used Date Smoking Tobacco: Never Assessed Comments Unknown Sex and Gender Information Value Date Recorded Sex Assigned at Not on file Legal Sex Female 4:26 AM FITNESS AND WELLNESS INSTRUCTOR Gender Identity Not on file Sexual Orientation Not on file documented as of this encounter Plan of Treatment Upcoming Encounters Date Type Department Care Team (Late st Contact Info) Description 10/24/2025 10:30 AM CDT Office Visit [facility] Heart and Vascular - [facility] [address] [facility] [address] [place] [address] Amol Sharma MD [address] [facility] [address] [place] [address] documented as of this encounter Visit Diagnoses Not on filedocumented in this encounter Care Teams Career Services Coordinator Relationship Specialty Start Date End Date Casey Dudley MD PCP - General Family Practice 10/15/11 documented as of this encounter
--- OUTSIDE RECORDS SUMMARY | 2025-05-27 12:17 | XMS_ITS | Encounter Summary ---
Author Organization [facility] Address [address] [place] [address] Care Team Providers Care Signal Constructor Name Role Phone Casey Dudley MD Primary Care Provider [phone] Encounter Details Date Type Department Care Team (Late st Contact Info) Description 05/29/2005 Outpatient Historical [facility] 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 CINDER DUMP CRANE OPERATOR Gender Identity Not on file Sexual Orientation Not on file documented as of this encounter Plan of Treatment Upcoming Encounters Date Type Department Care Team (Late st Contact Info) Description 10/24/2025 10:30 AM CDT Office Visit [facility] - [facility] [address] [place] [address] [address] [place] [address] Amol Sharma MD [address] [facility] [address] [place] [address] documented as of this encounter Visit Diagnoses Not on filedocumented in this encounter Care Teams Signal Constructor Relationship Specialty Start Date End Date Casey Dudley MD PCP - General Family Practice 10/15/11 documented as of this encounter
--- OUTSIDE RECORDS SUMMARY | 2025-05-27 12:17 | XMS_ITS | Encounter Summary ---
Author Organization [facility] Address [address] [place] [address] Care Team Providers Care Doctor Of Nurse Anesthesia Practice Name Role Phone Casey Dudley MD Primary Care Provider Encounter Details Date Type Department Care Team (Late st Contact Info) Description 06/12/2005 Outpatient Historical [facility] Located [facility] [address] [place] [address] Amol Rodriguez MD NO ADDRESS ON FILE Social History Tobacco Use Types Packs/Day Years Used Date Smoking Tobacco: Never Assessed Comments Unknown Sex and Gender Information Value Date Recorded Sex Assigned at Not on file Legal Sex Female 4:26 AM PULLER MACHINE Gender Identity Not on file Sexual Orientation Not on file documented as of this encounter Plan of Treatment Upcoming Encounters Date Type Department Care Team (Late st Contact Info) Description 10/24/2025 10:30 AM CDT Office Visit [facility] - [facility] [address] [place] [address] [place] [id number] Amol Sharma MD [address] [place] [address] documented as of this encounter Visit Diagnoses Not on filedocumented in this encounter Care Teams Doctor Of Nurse Anesthesia Practice Relationship Specialty Start Date End Date Casey Dudley MD PCP - General Family Practice 10/15/11 documented as of this encounter
--- OUTSIDE RECORDS SUMMARY | 2025-05-27 12:17 | XMS_ITS | Encounter Summary ---
Author Organization [facility] Address [address] [place] [address] Care Team Providers Care Theater Usher Name Role Phone Casey Dudley MD Primary Care Provider [phone] Encounter Details Date Type Department Care Team (Late st Contact Info) Description 06/12/[address] [facility] [address] [place] [phone] Tony Hanson MD NO ADDRESS ON FILE Social History Tobacco Use Types Packs/Day Years Used Date Smoking Tobacco: Never Assessed Comments Unknown Sex and Gender Information Value Date Recorded Sex Assigned at Not on file Legal Sex Female 4:26 AM SPOOLER Gender Identity Not on file Sexual Orientation Not on file documented as of this encounter Plan of Treatment Upcoming Encounters Date Type Department Care Team (Late st Contact Info) Description 10/24/2025 10:30 AM CDT Office Visit [facility] - [facility] [address] [place] [address] [address] [place] [address] Amol Sharma MD [address] [place] [address] documented as of this encounter Visit Diagnoses Not on filedocumented in this encounter Care Teams Theater Usher Relationship Specialty Start Date End Date Casey Dduley MD PCP - General Family Practice 10/15/11 documented as of this encounter
--- OUTSIDE RECORDS SUMMARY | 2025-05-27 12:17 | XMS_ITS | Data Portability ---
Author Organization [facility] [employer] [facility], Main Office Address [address] [place] [address] Care Team Providers Care Special Procedures Tech Name Role Phone ESHA PETERSON Primary Care [...] %_of_ total _HGB <5.7 high Not Available Slated [facility] [address] [place], [address], 09/11/2021 16:58:19 09/10/19 22 09/11/2021 HEMOG LOBIN A1C copy(ies) sent to: [facility] [place] [facility] ADMN [address] [place] [address] FAMIL Y PRACT ICE [facility]NE [facility] AGUST[facility]N [address] [place] [address] Not Available Slated [facility] [address] [place], [address], 09/11/2021 16:58:19 09/10/19 22 09/11/2021 T3, FREE T3, free 3.0 pg/mL 2.3-4. 2 normal Not Available [address] [place], [address], 09/11/2021 16:58:19 09/10/19 22 09/11/2021 T3, FREE copy(ies) sent to: [facility] [place] [facility] ADMN [address] [place] [address] FAMIL Y PRACT ICE [facility] AGUST[facility]N [address] [place] [address] Not Available [address] [place], [address], 09/11/2021 16:58:19 09/10/19 22 09/11/2021 VITAM IN B12/F OLATE , SERUM PANEL vitamin B12 478 pg/mL 200-11 00 normal Not Available [address] [place], [address], 09/11/2021 16:58:18 09/10/19 22 09/11/2021 VITAM IN B12/F OLATE , SERUM PANEL folate, serum 21.4 NG/mL normal Refer ence Range Low: <3.4 Borde rline : 3.4-5 .4 Princess l: >5.4 Not Available [address] [place], [address], 09/11/2021 16:58:18 09/10/19 22 09/11/2021 VITAM IN B12/F OLATE , SERUM PANEL copy(ies) sent to: [facility]DA [place] ADMN [address] [place] [address] FAMIL Y PRACT ICE BARNE TT & AGUSTÍN [address] [place] [address] Not Available [facility] [place] [address] [place], [address], 09/11/2021 16:58:18 09/10/19 22 09/11/2021 INSUL IN [...] (dete nel, gluli sine) . Not Available [facility] [place] [address] [place], [address], 09/11/2021 16:58:18 09/10/19 22 09/11/2021 INSUL IN copy(ies) sent to: [facility] [place] [facility] ADMN [address] [place] [address] FAMIL Y PRACT ICE [facility]NE TT & AGUST[facility]N [address] [place] [address] Not Available [facility] [place] [address] [place], [address], 09/11/2021 16:58:18 09/10/19 22 09/11/2021 THYRO ID PEROX IDASE ANTIB ODIES thyroid peroxidase antibodies <1 IU/mL <9 normal Not Available [facility] [place] [address] [place], [address], 09/11/2021 16:58:18 09/10/19 22 09/11/2021 THYRO ID PEROX IDASE ANTIB ODIES copy(ies) sent to: [facility] [place] [facility] ADMN [address] [place] [address] FAMIL Y PRACT ICE [facility] AGUST[facility] [address] [place] [address] Not Available [facility] [place] [address] [place], [address], 09/11/2021 16:58:18 09/10/19 22 09/11/2021 COMPR EHENS TSEVE METAB OLIC PANEL glucose 109 mg/dL 65-99 high Fasti ng refer ence inter mark For someo ne witho ut known diabe andrew, a gluco se value betwe en 100 and 125 mg/dL is consi stent with predi abete s and shoul d be confi rmed with a follo w-up test. Not Available [address] [address] [place], [address], 09/11/2021 16:58:17 09/10/19 22 09/11/2021 COMPR EHENS STEVE METAB OLIC PANEL urea nitrogen (BUN) 16 mg/dL 7-25 normal Not Available [facility] [address] [address] [address] , [place], [address], 09/11/2021 16:58:17 09/10/19 22 09/11/2021 COMPR EHENS STEVE METAB OLIC PANEL creatinine 0.70 mg/dL 0.50-0 .99 normal For patie nts >49 years of age, the refer ence limit for Creat inine is appro ximat digna 13% highe r for peopl e ident ified as Afric an-Am fadia n. Not Available [address] [address] [address]ratio n, [place], [address], 09/11/2021 16:58:17 09/10/19 22 09/11/2021 COMPR EHENS STEVE METAB OLIC PANEL eGFR non-afr. citizen of [place] 89 mL/mi n/1.7 3m2 > or = 60 normal Not Available [address] [address] [place], [address], 09/11/2021 16:58:17 09/10/19 22 09/11/2021 COMPR EHENS STEVE METAB OLIC PANEL eGFR 103 mL/mi n/1.7 3m2 > or = 60 normal Not Available [address], [address], 09/11/2021 16:58:17 09/10/19 22 09/11/2021 COMPR EHENS STEVE METAB OLIC PANEL BUN/creatini ne ratio not applic able (calc ) 6-22 Not Available [address], [address], 09/11/2021 16:58:17 09/10/19 22 09/11/2021 COMPR EHENS STEVE METAB OLIC PANEL sodium 139 mmol/ L 135-14 6 normal Not Available [address], [address], 09/11/2021 16:58:17 09/10/19 22 09/11/2021 COMPR EHENS STEVE METAB OLIC PANEL potassium 4.3 mmol/ L 3.5-5. 3 normal Not Available [address], [address], 09/11/2021 16:58:17 09/10/19 22 09/11/2021 COMPR EHENS STEVE METAB OLIC PANEL chloride 104 mmol/ L 98-110 normal Not Available [address], [address], 09/11/2021 16:58:17 09/10/19 22 09/11/2021 COMPR EHENS STEVE METAB OLIC PANEL carbon dioxide 29 mmol/ L 20-32 normal Not Available [address], [address], 09/11/2021 16:58:17 09/10/19 22 09/11/2021 COMPR EHENS STEVE METAB OLIC PANEL calcium 8.9 mg/dL 8.6-10 .4 normal Not Available [address], [address], 09/11/2021 16:58:17 09/10/19 22 09/11/2021 COMPR EHENS STEVE METAB OLIC PANEL protein, total 6.2 g/dL 6.1-8. 1 normal Not Available [address], [address], 09/11/2021 16:58:17 09/10/19 22 09/11/2021 COMPR EHENS STEVE METAB OLIC PANEL albumin 4.0 g/dL 3.6-5. 1 normal Not Available [address], [address], 09/11/2021 16:58:17 09/10/19 22 09/11/2021 COMPR EHENS STEVE METAB OLIC PANEL globulin 2.2 g/dL_ (calc ) 1.9-3. 7 normal Not Available [address], [address], 09/11/2021 16:58:17 09/10/19 22 09/11/2021 COMPR EHENS STEVE METAB OLIC PANEL albumin/glob ulin ratio 1.8 (calc ) 1.0-2. 5 normal Not Available [address], [address], 09/11/2021 16:58:17 09/10/19 22 09/11/2021 COMPR EHENS STEVE METAB OLIC PANEL bilirubin, total 0.6 mg/dL 0.2-1. 2 normal Not Available [address], [address], 09/11/2021 16:58:17 09/10/19 22 09/11/2021 COMPR EHENS STEVE METAB OLIC PANEL alkaline phosphatase 52 U/L 37-153 normal Not Available [address], [address], 09/11/2021 16:58:17 09/10/19 22 09/11/2021 COMPR EHENS STEVE METAB OLIC PANEL AST 13 U/L 10-35 normal Not Available [facility] [place] [address] [place], [address], 09/11/2021 16:58:17 09/10/19 22 09/11/2021 COMPR EHENS STEVE METAB OLIC PANEL ALT 15 U/L 6-29 normal Not Available [facility] [place] [address] [place], [address], 09/11/2021 16:58:17 09/10/19 22 09/11/2021 COMPR EHENS STEVE METAB OLIC PANEL copy(ies) sent to: [facility] ADMN [address] [place] [address] FAMIL Y PRACT ICE [facility]NE TT & AGUST[facility]N [address] [place] [address] Not Available [address] [address] [place], [address], 09/11/2021 16:58:17 09/10/19 22 09/11/2021 LIPID PANEL , STAND YAHIR non HDL cholesterol 107 mg/dL _(sari c) <130 normal For patie nts with diabe andrew plus 1 major ASCVD risk facto r, treat ing to a non-H DL-C goal of <100 mg/dL (LDL- C of <70 mg/dL ) is fred tam optio n. Not Available [address] [address] [place], [address], 09/11/2021 16:58:17 09/10/19 22 09/11/2021 LIPID PANEL , STAND YAHIR cholesterol, total 169 mg/dL <200 normal Not Available [address] [address] [place], [address], 09/11/2021 16:58:17 09/10/19 22 09/11/2021 LIPID PANEL , STAND YAHIR HDL cholesterol 62 mg/dL > or = 50 normal Not Available [facility] [address] [address]ratio n, [place], [address], 09/11/2021 16:58:17 09/10/19 22 09/11/2021 LIPID PANEL , STAND YAHIR triglyceride s 54 mg/dL <150 normal Not Available [facility] [address] [address] n, [place], [address], 09/11/2021 16:58:17 09/10/19 22 09/11/2021 LIPID PANEL [...] 9): 2061- 2068 (http ://ed ucati on.Qu haylieEzeecube. com/f aq/FA Q164) Not Available [facility] [address] [address] n, [place], [address], 09/11/2021 16:58:17 09/10/19 22 09/11/2021 LIPID PANEL , STAND YAHIR chol/HDLC ratio 2.7 (calc ) <5.0 normal Not Available [facility] [address] [place], [address], 09/11/2021 16:58:17 09/10/19 22 09/11/2021 LIPID PANEL , STAND YAHIR copy(ies) sent to: [facility] [place] [facility] ADMN [address] [place] [address] FAMIL Y PRACT ICE BARNE TT & AGUST[facility]N [address] [place] [address] Not Available [facility] [address] [address] [place], [address], 09/11/2021 16:58:17 09/10/19 22 09/11/2021 TSH+F REE T4 TSH 2.24 mIU/L 0.40-4 .50 normal Not Available [facility] [address], [address], 09/11/2021 16:58:19 09/10/19 22 09/11/2021 TSH+F REE T4 T4, free 1.1 NG/dL 0.8-1. 8 normal Not Available [facility] [address] [address] [place], [address], 09/11/2021 16:58:19 09/10/19 22 09/11/2021 TSH+F REE T4 copy(ies) sent to: [facility] [place] [facility] ADMN [address] [place] [address] FAMIL Y PRACT ICE [facility] TT & AGUSTÍN [address] [place] [address] Not Available [address], [address], 09/11/2021 16:58:19 12/04/19 22 12/04/2021 HEMOG LOBIN [...] diabe andrew for child aaron. Not Available [address] [address] [place], [address], 12/04/2021 17:42:05 12/04/19 22 12/04/2021 HEMOG LOBIN A1C copy(ies) sent to: [facility] [place] [facility] ADMN [address] [place] [address] Not Available [facility] [address] [address] [place], [address], 12/04/2021 17:42:05 12/04/19 22 12/04/2021 TSH+F REE T4 TSH 3.42 mIU/L 0.40-4 .50 normal Not Available [facility] [address] [address] [place], [address], 12/04/2021 17:42:04 12/04/19 22 12/04/2021 TSH+F REE T4 T4, free 1.0 NG/dL 0.8-1. 8 normal Not Available [facility] [address] [place], [address], 12/04/2021 17:42:04 12/04/19 22 12/04/2021 TSH+F REE T4 copy(ies) sent to: [facility] [place] [facility] AL GRP ADMN [address] [facility] [place] [address] Not Available [facility] [address] [place], [address], 12/04/2021 17:42:04 12/04/19 22 12/04/2021 T3, FREE copy(ies) sent to: [facility] [place] [facility] ADMN [address] [place] [address] Not Available [facility] [address] [address] [place], [address], 12/04/2021 17:42:04 12/04/19 22 12/04/2021 T3, FREE T3, free 3.5 pg/mL 2.3-4. 2 normal Not Available [facility] [address] [address] [place], [address], 12/04/2021 17:42:04 12/04/19 22 12/04/2021 INSUL IN [...] (dete nel, gluli sine) . Not Available [facility] [place] [address] [place], [address], 12/04/2021 17:42:04 12/04/19 22 12/04/2021 INSUL IN copy(ies) sent to: [facility] [place] [facility] ADMN [address] [place] [address] Not Available [facility] [address] [address] [place], [address], 12/04/2021 17:42:04 12/04/19 22 12/04/2021 THYRO ID PEROX IDASE ANTIB ODIES thyroid peroxidase antibodies <1 IU/mL <9 normal Not Available [facility] [address] [address] [place], [address], 12/04/2021 17:42:03 12/04/19 22 12/04/2021 THYRO ID PEROX IDASE ANTIB ODIES copy(ies) sent to: [facility] [place] [facility] J[facility] S[facility]IC AL GRP ADMN [address] [place] [address] Not Available [address] [address] [place], [address], 12/04/2021 17:42:03 12/04/19 22 12/04/2021 COMPR EHENS STEVE METAB OLIC PANEL BUN/creatini ne ratio not applic able (calc ) 6-22 Not Available [address], [address], 12/04/2021 17:42:03 12/04/19 22 12/04/2021 COMPR EHENS STEVE METAB OLIC PANEL glucose 106 mg/dL 65-99 high Fasti ng refer ence inter mark For someo ne witho ut known diabe andrew, a gluco se value betwe en 100 and 125 mg/dL is consi stent with predi abete s and shoul d be confi rmed with a follo w-up test. Not Available [address] [address] [place], [address], 12/04/2021 17:42:03 12/04/19 22 12/04/2021 COMPR EHENS STEVE METAB OLIC PANEL urea nitrogen (BUN) 11 mg/dL 7-25 normal Not Available [address] [address] [place], [address], 12/04/2021 17:42:03 12/04/19 22 12/04/2021 COMPR EHENS STEVE METAB OLIC PANEL creatinine 0.90 mg/dL 0.50-0 .99 normal For patie nts >49 years of age, the refer ence limit for Creat inine is appro ximat digna 13% highe r for peopl e ident ified as Afric an-Am fadia n. Not Available [address] [address] [place], [address], 12/04/2021 17:42:03 12/04/19 22 12/04/2021 COMPR EHENS STEVE METAB OLIC PANEL eGFR non-afr. citizen of [place] 66 mL/mi n/1.7 3m2 > or = 60 normal Not Available [address] [address] [place], [address], 12/04/2021 17:42:03 12/04/19 22 12/04/2021 COMPR EHENS STEVE METAB OLIC PANEL eGFR 76 mL/mi n/1.7 3m2 > or = 60 normal Not Available [address] [address] [place], [address], 12/04/2021 17:42:03 12/04/19 22 12/04/2021 COMPR EHENS STEVE METAB OLIC PANEL sodium 141 mmol/ L 135-14 6 normal Not Available [address] [address] [place], [address], 12/04/2021 17:42:03 12/04/19 22 12/04/2021 COMPR EHENS STEVE METAB OLIC PANEL potassium 4.2 mmol/ L 3.5-5. 3 normal Not Available [address] [address] [place], [address], 12/04/2021 17:42:03 12/04/19 22 12/04/2021 COMPR EHENS STEVE METAB OLIC PANEL chloride 106 mmol/ L 98-110 normal Not Available [address] [address] [place], [address], 12/04/2021 17:42:03 12/04/19 22 12/04/2021 COMPR EHENS STEVE METAB OLIC PANEL carbon dioxide 29 mmol/ L 20-32 normal Not Available [address] [address] [place], [address], 12/04/2021 17:42:03 12/04/19 22 12/04/2021 COMPR EHENS STEVE METAB OLIC PANEL calcium 9.0 mg/dL 8.6-10 .4 normal Not Available [address], [address], 12/04/2021 17:42:03 12/04/19 22 12/04/2021 COMPR EHENS STEVE METAB OLIC PANEL protein, total 6.2 g/dL 6.1-8. 1 normal Not Available [address], [address], 12/04/2021 17:42:03 12/04/19 22 12/04/2021 COMPR EHENS STEVE METAB OLIC PANEL albumin 3.9 g/dL 3.6-5. 1 normal Not Available [address], [address], 12/04/2021 17:42:03 12/04/19 22 12/04/2021 COMPR EHENS STEVE METAB OLIC PANEL globulin 2.3 g/dL_ (calc ) 1.9-3. 7 normal Not Available [address], [address], 12/04/2021 17:42:03 12/04/19 22 12/04/2021 COMPR EHENS STEVE METAB OLIC PANEL albumin/glob ulin ratio 1.7 (calc ) 1.0-2. 5 normal Not Available [address], [address], 12/04/2021 17:42:03 12/04/19 22 12/04/2021 COMPR EHENS STEVE METAB OLIC PANEL bilirubin, total 0.6 mg/dL 0.2-1. 2 normal Not Available [address], [address], 12/04/2021 17:42:03 12/04/19 22 12/04/2021 COMPR EHENS STEVE METAB OLIC PANEL alkaline phosphatase 56 U/L 37-153 normal Not Available [address], [address], 12/04/2021 17:42:03 12/04/19 22 12/04/2021 COMPR EHENS STEVE METAB OLIC PANEL AST 14 U/L 10-35 normal Not Available [address], [address], 12/04/2021 17:42:03 12/04/19 22 12/04/2021 COMPR EHENS STEVE METAB OLIC PANEL ALT 10 U/L 6-29 normal Not Available [address], [address], 12/04/2021 17:42:03 12/04/19 22 12/04/2021 COMPR EHENS STEVE METAB OLIC PANEL copy(ies) sent to: [facility] [place] [facility] J[facility] GRP ADMN [address] [facility] [place] [address] Not Available [address], [address], 12/04/2021 17:42:03 12/04/19 22 12/04/2021 LIPID PANEL , STAND YAHIR cholesterol, total 157 mg/dL <200 normal Not Available [address], [address], 12/04/2021 17:42:02 12/04/19 22 12/04/2021 LIPID PANEL , STAND YAHIR HDL cholesterol 54 mg/dL > or = 50 normal Not Available [address], [address], 12/04/2021 17:42:02 12/04/19 22 12/04/2021 LIPID PANEL , STAND YAHIR triglyceride s 80 mg/dL <150 normal Not Available [address], [address], 12/04/2021 17:42:02 12/04/19 22 12/04/2021 LIPID PANEL [...] 310(1 9): 2061- 2068 (http ://ed ucati on.GrownOut haylieEzeecube. com/f aq/FA Q164) Not Available [facility] [address] [address] [address] [place], [address], 12/04/2021 17:42:02 12/04/19 22 12/04/2021 LIPID PANEL , STAND YAHIR chol/HDLC ratio 2.9 (calc ) <5.0 normal Not Available [facility] [address] [place], [address], 12/04/2021 17:42:02 12/04/19 22 12/04/2021 LIPID PANEL , STAND YAHIR non HDL cholesterol 103 mg/dL _(sari c) <130 normal For patie nts with diabe andrew plus 1 major ASCVD risk facto r, treat ing to a non-H DL-C goal of <100 mg/dL (LDL- C of <70 mg/dL ) is fred bazzio n. Not Available [facility] [address] [place], [address], 12/04/2021 17:42:02 12/04/19 22 12/04/2021 LIPID PANEL , STAND YAHIR copy(ies) sent to: [facility]ON [facility]DA [facility] GRP ADMN [address] [place] [address] Not Available [address] [address] [place], [address], 12/04/2021 17:42:02 12/17/19 23 12/18/2022 LIPID PANEL , STAND YAHIR cholesterol, total 182 mg/dL <200 normal Not Available [address] [address] [place], [address], 12/18/2022 14:43:34 12/17/19 23 12/18/2022 LIPID PANEL , STAND YAHIR HDL cholesterol 62 mg/dL > or = 50 normal Not Available [address] [address] [place], [address], 12/18/2022 14:43:34 12/17/19 23 12/18/2022 LIPID PANEL , STAND YAHIR triglyceride s 54 mg/dL <150 normal Not Available [address] [address] [place], [address], 12/18/2022 14:43:34 12/17/19 23 12/18/2022 LIPID PANEL [...] 9): 2061- 2068 (http ://ed ucati on.Qu Nigel Zendrive. com/f aq/FA Q164) Not Available [address], [address], 12/18/2022 14:43:34 12/17/19 23 12/18/2022 LIPID PANEL , STAND YAHIR chol/HDLC ratio 2.9 (calc ) <5.0 normal Not Available [address], [address], 12/18/2022 14:43:34 12/17/19 23 12/18/2022 LIPID PANEL , STAND YAHIR non HDL cholesterol 120 mg/dL _(sari c) <130 normal For patie nts with diabe nadrew plus 1 major ASCVD risk facto r, treat ing to a non-H DL-C goal of <100 mg/dL (LDL- C of <70 mg/dL ) is consi dered a thera peuti c optio n. Not Available [address], [address], 12/18/2022 14:43:34 12/17/19 23 12/18/2022 COMPR EHENS STEVE METAB OLIC PANEL glucose 113 mg/dL 65-99 high Fasti ng refer ence inter mark For someo ne witho ut known diabe andrew, a gluco se value betwe en 100 and 125 mg/dL is consi stent with predi abete s and shoul d be confi rmed with a follo w-up test. Not Available [address], [address], 12/18/2022 14:43:35 12/17/1912/18/2022 COMPR EHENS STEVE METAB OLIC PANEL urea nitrogen (BUN) 17 mg/dL 7-25 normal Not Available [address], [address], 12/18/2022 14:43:35 12/17/19 23 12/18/2022 COMPR EHENS STEVE METAB OLIC PANEL creatinine 0.75 mg/dL 0.50-1 .05 normal Not Available [address], [address], 12/18/2022 14:43:35 12/17/19 23 12/18/2022 COMPR EHENS STEVE METAB OLIC PANEL eGFR 86 mL/mi n/1.7 3m2 > or = 60 normal The eGFR is based on the CKD-E PI 2020 equat ion. To calcu late the new eGFR from a previ ous Creat inine or Cysta tin C resul t, go to https ://gabbi turner.denver saenz.o syd/nilson stewart s/ kdoqi /gfr% 5Fcal culat or Not Available [address], [address], 12/18/2022 14:43:35 12/17/19 23 12/18/2022 COMPR EHENS STEVE METAB OLIC PANEL BUN/creatini ne ratio NOT APPLIC ABLE (calc ) 6-22 Not Available [address], [address], 12/18/2022 14:43:35 12/17/19 23 12/18/2022 COMPR EHENS STEVE METAB OLIC PANEL sodium 140 mmol/ L 135-14 6 normal Not Available [address], [address], 12/18/2022 14:43:35 12/17/19 23 12/18/2022 COMPR EHENS STEVE METAB OLIC PANEL potassium 3.9 mmol/ L 3.5-5. 3 normal Not Available [address], [address], 12/18/2022 14:43:35 12/17/19 23 12/18/2022 COMPR EHENS STEVE METAB OLIC PANEL chloride 106 mmol/ L 98-110 normal Not Available [address], [address], 12/18/2022 14:43:35 12/17/19 23 12/18/2022 COMPR EHENS STEVE METAB OLIC PANEL carbon dioxide 27 mmol/ L 20-32 normal Not Available [address], [address], 12/18/2022 14:43:35 12/17/19 23 12/18/2022 COMPR EHENS STEVE METAB OLIC PANEL calcium 8.8 mg/dL 8.6-10 .4 normal Not Available [address], [address], 12/18/2022 14:43:35 12/17/19 23 12/18/2022 COMPR EHENS STEVE METAB OLIC PANEL protein, total 6.1 g/dL 6.1-8. 1 normal Not Available [address], [address], 12/18/2022 14:43:35 12/17/19 23 12/18/2022 COMPR EHENS STEVE METAB OLIC PANEL albumin 3.6 g/dL 3.6-5. 1 normal Not Available [address], [address], 12/18/2022 14:43:35 12/17/19 23 12/18/2022 COMPR EHENS STEVE METAB OLIC PANEL globulin 2.5 g/dL_ (calc ) 1.9-3. 7 normal Not Available [address], [address], 12/18/2022 14:43:35 12/17/19 23 12/18/2022 COMPR EHENS STEVE METAB OLIC PANEL albumin/glob ulin ratio 1.4 (calc ) 1.0-2. 5 normal Not Available [address], [address], 12/18/2022 14:43:35 12/17/19 23 12/18/2022 COMPR EHENS STEVE METAB OLIC PANEL bilirubin, total 0.8 mg/dL 0.2-1. 2 normal Not Available [address] [address] [place], [address], 12/18/2022 14:43:35 12/17/19 23 12/18/2022 COMPR EHENS STEVE METAB OLIC PANEL alkaline phosphatase 45 U/L 37-153 normal Not Available [facility] [employer] [address] [address] [place], [address], 12/18/2022 14:43:35 12/17/19 23 12/18/2022 COMPR EHENS STEVE METAB OLIC PANEL AST 14 U/L 10-35 normal Not Available [address] [address] [place], [address], 12/18/2022 14:43:35 12/17/19 23 12/18/2022 COMPR EHENS STEVE METAB OLIC PANEL ALT 15 U/L 6-29 normal Not Available [address], [address], 12/18/2022 14:43:35 12/17/19 23 12/18/2022 THYRO ID PEROX IDASE ANTIB ODIES thyroid peroxidase antibodies <1 IU/mL <9 Not Available [address], [address], 12/18/2022 14:43:35 12/17/19 23 12/18/2022 INSUL IN [...] Diagn ostic s in 2021. Not Available [facility] [address], [address], 12/18/2022 14:43:36 12/17/19 23 12/18/2022 T3, FREE T3, free 3.1 pg/mL 2.3-4. 2 normal Not Available [facility] [address] [address] [place], [address], 12/18/2022 14:43:37 12/17/1912/18/2022 TSH+F REE T4 TSH 2.77 mIU/L 0.40-4 .50 normal Not Available [facility] [address] [address] [place], [address], 12/18/2022 14:43:38 12/17/19 23 12/18/2022 TSH+F REE T4 T4, free 1.0 NG/dL 0.8-1. 8 normal Not Available [facility] [address], [address], 12/18/2022 14:43:38 12/17/1912/18/2022 HEMOG LOBIN A1C hemoglobin [...] diabe andrew for child aaron. Not Available [facility] [address], [address], 12/18/2022 14:43:38 03/18/20 23 03/20/2023 LIPID PANEL , STAND YAHIR cholesterol, total 145 mg/dL <200 normal Not Available [facility] [address], [address], 03/20/2023 09:13:25 03/18/20 23 03/20/2023 LIPID PANEL , STAND YAHIR HDL cholesterol 52 mg/dL > or = 50 normal Not Available [facility] [address] [place], [address], 03/20/2023 09:13:25 03/18/20 23 03/20/2023 LIPID PANEL , STAND YAHIR triglyceride s 85 mg/dL <150 normal Not Available [facility] [address] [place], [address], 03/20/2023 09:13:25 03/18/20 23 03/20/2023 LIPID PANEL [...] 9): 2061- 2068 (http ://ed ucati on.Qu Nigel mcqueen [employer]/f aq/FA Q164) Not Available [facility] [address] [facility] [place], [address], 03/20/2023 09:13:25 03/18/20 23 03/20/2023 LIPID PANEL , STAND YAHIR chol/HDLC ratio 2.8 (calc ) <5.0 normal Not Available [facility] [address] [place], [address], 03/20/2023 09:13:25 03/18/20 23 03/20/2023 LIPID PANEL , STAND YAHIR non HDL cholesterol 93 mg/dL _(sari c) <130 normal For patie nts with diabe andrew plus 1 major ASCVD risk facto r, treat ing to a non-H DL-C goal of <100 mg/dL (LDL- C of <70 mg/dL ) is consi dered a thera peuti c optio n. Not Available [address], [address], 03/20/2023 09:13:25 03/18/20 23 03/20/2023 COMPR EHENS STEVE METAB OLIC PANEL glucose 106 mg/dL 65-99 high Fasti ng refer ence inter mark For someo ne witho ut known diabe andrew, a gluco se value betwe en 100 and 125 mg/dL is consi stent with predi abete s and shoul d be confi rmed with a follo w-up test. Not Available [address], [address], 03/20/2023 09:13:25 03/18/2003/20/2023 COMPR EHENS STEVE METAB OLIC PANEL urea nitrogen (BUN) 12 mg/dL 7-25 normal Not Available [address], [address], 03/20/2023 09:13:25 03/18/2003/20/2023 COMPR EHENS STEVE METAB OLIC PANEL creatinine 0.70 mg/dL 0.60-1 .00 normal Not Available [address] [place], [address], 03/20/2023 09:13:25 03/18/20 23 03/20/2023 COMPR EHENS STEVE METAB OLIC PANEL eGFR 93 mL/mi n/1.7 3m2 > or = 60 normal Not Available [address], [address], 03/20/2023 09:13:25 03/18/20 23 03/20/2023 COMPR EHENS STEVE METAB OLIC PANEL BUN/creatini ne ratio SEE NOTE: (calc ) 6-22 Not Repor hamzah: BUN and Creat inine are withi n refer ence range . Not Available [address], [address], 03/20/2023 09:13:25 03/18/20 23 03/20/2023 COMPR EHENS STEVE METAB OLIC PANEL sodium 142 mmol/ L 135-14 6 normal Not Available [address], [address], 03/20/2023 09:13:25 03/18/20 23 03/20/2023 COMPR EHENS STEVE METAB OLIC PANEL potassium 4.2 mmol/ L 3.5-5. 3 normal Not Available [address], [address], 03/20/2023 09:13:25 03/18/20 23 03/20/2023 COMPR EHENS STEVE METAB OLIC PANEL chloride 106 mmol/ L 98-110 normal Not Available [address], [address], 03/20/2023 09:13:25 03/18/20 23 03/20/2023 COMPR EHENS STEVE METAB OLIC PANEL carbon dioxide 29 mmol/ L 20-32 normal Not Available [address], [address], 03/20/2023 09:13:25 03/18/20 23 03/20/2023 COMPR EHENS STEVE METAB OLIC PANEL calcium 8.8 mg/dL 8.6-10 .4 normal Not Available [address], [address], 03/20/2023 09:13:25 03/18/20 23 03/20/2023 COMPR EHENS STEVE METAB OLIC PANEL protein, total 6.2 g/dL 6.1-8. 1 normal Not Available [address], [address], 03/20/2023 09:13:25 03/18/2003/20/2023 COMPR EHENS STEVE METAB OLIC PANEL albumin 3.8 g/dL 3.6-5. 1 normal Not Available [address], [address], 03/20/2023 09:13:25 03/18/20 23 03/20/2023 COMPR EHENS STEVE METAB OLIC PANEL globulin 2.4 g/dL_ (calc ) 1.9-3. 7 normal Not Available [address], [address], 03/20/2023 09:13:25 03/18/20 23 03/20/2023 COMPR EHENS STEVE METAB OLIC PANEL albumin/glob ulin ratio 1.6 (calc ) 1.0-2. 5 normal Not Available [address], [address], 03/20/2023 09:13:25 03/18/2003/20/2023 COMPR EHENS STEVE METAB OLIC PANEL bilirubin, total 0.6 mg/dL 0.2-1. 2 normal Not Available [address], [address], 03/20/2023 09:13:25 03/18/20 23 03/20/2023 COMPR EHENS STEVE METAB OLIC PANEL alkaline phosphatase 53 U/L 37-153 normal Not Available [address], [address], 03/20/2023 09:13:25 03/18/20 23 03/20/2023 COMPR EHENS STEVE METAB OLIC PANEL AST 15 U/L 10-35 normal Not Available [address], [address], 03/20/2023 09:13:25 03/18/20 23 03/20/2023 COMPR EHENS STEVE METAB OLIC PANEL ALT 12 U/L 6-29 normal Not Available [facility] [address], [address], 03/20/2023 09:13:25 03/18/20 23 03/20/2023 THYRO ID PEROX IDASE ANTIB ODIES thyroid peroxidase antibodies <1 IU/mL <9 Not Available [facility] [address], [address], 03/20/2023 09:13:26 03/18/2003/20/2023 INSUL IN insulin 12.4 [...] Diagn ostic s in 2021. Not Available [facility] [address], [address], 03/20/2023 09:13:26 03/18/2003/20/2023 T3, FREE T3, free 3.5 pg/mL 2.3-4. 2 normal Not Available [facility] [address], [address], 03/20/2023 09:13:26 03/18/2003/20/2023 TSH+F REE T4 TSH 3.23 mIU/L 0.40-4 .50 normal Not Available [facility] [address], [address], 03/20/2023 09:13:27 03/18/2003/20/2023 TSH+F REE T4 T4, free 1.0 NG/dL 0.8-1. 8 normal Not Available [facility] [address], [address], 03/20/2023 09:13:27 03/18/20 23 03/20/2023 HEMOG LOBIN [...] diabe andrew for child aaron. Not Available [facility] [address] [address], [place], [address], 03/20/2023 09:13:27 Result Notes None recorded. Problems Name Problem SNOMED Code Status Onset Date Resolution Date Notes Provider Name and Address Organization Details Recorded Time Hypertensi ve disorder 98957312 Active 2018 Not Available [facility] 3 02:48:32 Type 2 diabetes mellitus 94310672 Completed 201810/22/2020 Not Available [facility] 3 02:48:32 Hyperlipid emia 59250932 Active 2018 Not Available [facility] 3 02:48:32 Prediabete s 140847690 Active 2022 DONY Groves, [facility] 3 13:01:17 Pablito thyroiditi s 17300580 Active 2022 DONY Groves, [facility] [employer] [facility] 3 13:01:38 Impaired fasting glycemia 215822533 Active 2022 Nalini Burger MD [address], [place], [address] , [place] [employer] 3 12:54:36 Problem Notes None recorded. Procedures [...] Name and Address Organization Details Recorded Time [address] diclofena c Not available Not available Not available Not available 03/23/2023 3355 RxNorm Kim Collazo RN [facility], [place] [employer] [facility] [employer] 3 11:10:47 Medications Name Sig Start Date [...] Available carbamazepi ne 100 mg chewable tablet PROTECTION SPECIALIST 1 T PO Q 12 H B [...] Not Available Not Available Fluzone High-Dose Quad 2020- (PF) 240 mcg/0.7 mL IM syringe 03/23 completed Not Available Not Available Not Available BinaxNOW COVID-19 Ag Self Test kit Use as Directed on the Package 03/23 completed Not Available Not Available Not Available Paxlovid 300 mg (150 mg x 2)-100 mg tablets in a dose pack 03/23 completed Not Available Not Available Not Available Vitals Date Recorded Body mass index (BMI) Body height Oxygen saturation Oxygen saturation in Arterial blood by Pulse oximetry Heart rate Body temperature Body weight Systolic And Diastolic Provider Name and Address Organization Details Last Updated DateTime 1 31.8 kg/m2 172.72 cm 98 % 98 % 72 /min 98.7 [degF] 85570.8 1 g 132/74 mm[Hg] Not Available [facility] 3 02:45:05 Date Recorded Body mass index (BMI) Body height Oxygen saturation Oxygen saturation in Arterial blood by Pulse oximetry Heart rate Body temperature Body weight Systolic And Diastolic Provider Name and Address Organization Details Last Updated DateTime 2 30.4 kg/m2 172.72 cm 98 % 98 % 79 /min 97.7 [degF] 27299.4 7 g 120/80 mm[Hg] Not Available [facility] 3 02:45:06 Date Recorded Body mass index (BMI) Body height Oxygen saturation Oxygen saturation in Arterial blood by Pulse oximetry Heart rate Respiratory rate Body temperature Body weight Systolic And Diastolic Provider Name and Address Organization Details Last Updated DateTime 1 31.8 kg/m2 172.72 cm 98 % 98 % 74 /min 16 /min 98.8 [degF] 58689.8 1 g 120/82 mm[Hg] Not Available [facility] 3 02:45:06 Date Recorded Body weight Body mass index (BMI) Body height Respiratory rate Body temperature Heart rate Systolic And Diastolic Provider Name and Address Organization Details Last Updated DateTime 3 81232.3 7 g 31.7 kg/m2 172.72 cm 14 /min 97.7 [degF] 69 /min 130/69 mm[Hg] Kim Collazo RN [place] [facility] [place] [employer] [facility] 3 11:08:34 Social History Question Answer Notes LastModified by Organizat ion Details LastModified Time Tobacco Smoking Status Never Smoker Not Available [facility] 10/01/2022 02:35:06 Do You Have An Advance Directive? No MIGRATION.[id number] 4418 Information not available 10/01/2022 Are You Blind Or Do You Have Difficulty Seeing? No MIGRATION.342476 0274 Information not available 10/01/2022 What Is Your Level Of Caffeine Consumption? Moderate MIGRATION.540744 9505 Information not available 10/01/2022 How Much Tobacco Do You Chew? None MIGRATION.032175 6150 Information not available 10/01/2022 In The 14 Days Before Symptom Onset, Have You Had Close Contact With A Laboratory-confirm ed COVID-19 While That Case Was Ill? No MIGRATION.301209 9011 Information not available 10/01/2022 In The 14 Days Before Symptom Onset, Have You Had Close Contact With A Person Who Is Under Investigation For COVID-19 While That Person Was Ill? No MIGRATION.913514 1659 Information not available 10/01/2022 Are You Deaf Or Do You Have Serious Difficulty Hearing? No MIGRATION.041078 6570 Information not available 10/01/2022 What Type Of Diet Are You Following? REGULAR MIGRATION.092046 4763 Information not available 10/01/2022 Which Illicit Or Recreational Drugs Have You Used? None MIGRATION.339782 3622 Information not available 10/01/2022 What Is The Highest Grade Or Level Of School You Have Completed Or The Highest Degree You Have Received? [id number] MIGRATION.304146 6897 Information not available 10/01/2022 Do You Have A Medical Power Of Ornamental Painter? No MIGRATION.724644 8060 Information not available 10/01/2022 What Is Your Relationship Status? MIGRATION.162359 4814 Information not available 10/01/2022 Do You Use Your Seat Belt Or Car Seat Routinely? Yes MIGRATION.141929 6150 Information not available 10/01/2022 Have You Recently Traveled Abroad? No MIGRATION.101687 9838 Information not available 10/01/2022 Do You Have Difficulty Walking Or Climbing Stairs? No MIGRATION.838895 8794 Information not available 10/01/2022 Sex: Female Functional Status Question Answer Note LastModified by Organizat ion Details LastModified Time What is your level of alcohol consumption? Moderate MIGRATION.415646 4972 Information not available 10/01/2022 Do you or have you ever used smokeless tobacco? Never used smokeless tobacco MIGRATION.011674 5897 Information not available 10/01/2022 Do you have transportation difficulties? No MIGRATION.602127 2914 Information not available 10/01/2022 Are you able to walk independently without assistance or assistive devices? YESWOREST MIGRATION.990812 4604 Information not available 10/01/2022 Do you have difficulty doing errands alone? No MIGRATION.475669 8202 Information not available 10/01/2022 Are you able to care for yourself independently? No MIGRATION.797882 7713 Information not available 10/01/2022 What is your occupation? retired MIGRATION.505712 1786 Information not available 10/01/2022 Do you have difficulty dressing, bathing, grooming, or toileting? No MIGRATION.513283 9520 Information not available 10/01/2022 Do you or have you ever used e-cigarettes or vape? Never used electronic cigarettes MIGRATION.644892 4767 Information not available 10/01/2022 What is your exercise level? Occasional MIGRATION.490684 8846 Information not available 10/01/2022 Mental Status Question Answer Note LastModified by Organizat ion Details LastModified Time Do you feel stressed (tense, restless, nervous, or anxious, or unable to sleep at night)? UX3894-1 MIGRATION.34686639 26 Information not available 10/01/2022 Do you have difficulty concentrating, remembering or making decisions? No MIGRATION.11590916 26 Information not available 10/01/2022 Family History Relationship Description Onset Age of this Age Resolved Age Notes LastModified by Organization Details LastModified Time Mother Malignant neoplasm of oral cavity MIGRATION.001 [id number] Not available 10/01/2022 02:42:57 Father Heart disease MIGRATION.030 [id number] Not available 10/01/2022 02:42:57 Father Hypercholest erolemia MIGRATION.384 4836047 Not available 10/01/2022 02:42:57 Maternal Grandmother Diabetes mellitus MIGRATION.335 [id number] Not available 10/01/2022 02:42:57 Maternal Aunt Diabetes mellitus MIGRATION.812 1759946 Not available 10/01/2022 02:42:57 Paternal Uncle Heart disease MIGRATION.555 [id number] Not available 10/01/2022 02:42:57 Paternal Aunt Heart disease MIGRATION.799 [id number] Not available 10/01/2022 02:42:57 Medical History Condition [...] Diagnosis SNOMED-CT Code Diagnosis ICD10 Code Diagnosis IMO Codes Diagnosis Note [id number] Nalini Burger MD [facility] [place] [address] [place] [address] 10/22/2020 00:00:00 10/22/2020 12:10:16 [id number] Nalini Burger MD [facility] [place] [address] [place] [address] 03/12/2021 00:00:00 03/12/2021 18:09:58 [id number] Nalini Burger MD [facility] [place] [address] [place] [address] 12/06/2021 00:00:00 12/06/2021 20:55:04 [id number] MD ERNESTINA [facility] [place] [address] [place] [address] 03/23/2023 10:58:56 03/23/2023 11:59:45 Impaired fasting glycemia 527845182 R73.01 A1C of 5.7% stable with diet and exercise. Discussed carb counting and how to read food labels. Recommende d patient to utilize the diabetesfo [place].Comply7 from the ADA website to help with food preparatio n as this presents ideal carb content per meal so this will make carb counting much easier for patient. Recommende d she incorporat e natural insulin hardware assembler s such as pears, apples, cinnamon, sol and sweet potatoes to help mobilize her endogenous insulin. Recommende d up to 150 minutes of moderate level activity/e xercise weekly. Pablito thyroiditis 21 406041 E06.3 TSH and FT4 overall in range. [...] None Recorded Advance Directives Directive N: Payers Insurance Date Sequence Insurance Name Policy Number Policy Cary Covered Member ID Cary Member ID Guarantor Name 03/23/2023 1 [employer] (MEDICARE REPLACEMENT/A DVANTAGE - PPO) [id number] 1 Ale Root [id number] Ale Root 03/23/2023 1 [facility] (MEDICARE REPLACEMENT/A DVANTAGE - PPO) [id number] Ale Root [id number] Ale Root Notes Date Note Type Note Provider Name and Address Organization Details Recorded Time 03/23/2023 text/html ROS as noted in the HPI 68 yo female comes in for follow up in management of impaired fasting glucose/prediabete s (A1C of 5.7%) and hashimotos thyroiditis. last seen in December 2021 at that time we continued thyroid support and insulin sensitizers. She had lumbar spinal ablation completed recently at [facility]. She was supposed to go to tow motor mechanic for a new retainer /splint to help reduce risk trigeminal neuralgia. She has gained 8 pounds since last December. She has been on actalin thyroid support. She ran out of this for 3-4 days. labs from 03/25:TSH of 3.23 uIU/mlFT4 1 ng/dL145/85/52/76g lucose 106 mg/dLCr normalLFT cscubdP3N 5.7%FT3 of 3.5 pg/mLinsulin 12.4 uU/mlTPO neg Nalini Burger MD [address] [facility], [facility] [address], [place], [address], [facility] [employer] 03/23/2023 12:56:05 OBGyn Episode No OBEpisode recorded.
--- OUTSIDE RECORDS SUMMARY | 2025-05-27 12:17 | XMS_ITS | Encounter Summary ---
Author Organization [facility] Address [address] [place] [address] Care Team Providers Care Clinical Laboratory Manager Name Role Phone Casey Dudley MD Primary Care Provider [phone] Encounter Details Date Type Department Care Team (Late st Contact Info) Description 06/11/2005 Outpatient Historical [facility] [place] [facility] [address] [place] [address] Tony Hanson MD NO ADDRESS ON FILE Social History Tobacco Use Types Packs/Day Years Used Date Smoking Tobacco: Never Assessed Comments Unknown Sex and Gender Information Value Date Recorded Sex Assigned at Not on file Legal Sex Female 4:26 AM SCUDDING INSPECTOR Gender Identity Not on file Sexual Orientation Not on file documented as of this encounter Plan of Treatment Upcoming Encounters Date Type Department Care Team (Late st Contact Info) Description 10/24/2025 10:30 AM CDT Office Visit [facility] - [facility] [address] [place] [address] [address] [place] [address] Amol Sharma MD [address] [facility] [address] [place] [address] documented as of this encounter Visit Diagnoses Not on filedocumented in this encounter Care Teams Clinical Laboratory Manager Relationship Specialty Start Date End Date Casey Dudley MD PCP - General Family Practice 10/15/11 documented as of this encounter
--- OUTSIDE RECORDS SUMMARY | 2025-05-27 12:17 | XMS_ITS | Encounter Summary ---
Author Organization [facility] Address [address] [place] [address] Care Team Providers Care Recording Studio Setup Worker Name Role Phone Casey Dudley MD Primary Care Provider [phone] Encounter Details Date Type Department Care Team (Late st Contact Info) Description 05/29/2005 Outpatient Historical [facility] [place] [facility] [place] [address] 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 Gender Identity Not on file Sexual Orientation Not on file documented as of this encounter Plan of Treatment Upcoming Encounters Date Type Department Care Team (Late st Contact Info) Description 10/24/2025 10:30 AM CDT Office Visit [facility] - [facility] [address] [facility] [address] [place] [address] Amol Sharma MD [address] [facility] [address] [place] [address] documented as of this encounter Visit Diagnoses Not on filedocumented in this encounter Care Teams Recording Studio Setup Worker Relationship Specialty Start Date End Date Casey Dudley MD PCP - General Family Practice 10/15/11 documented as of this encounter
--- OUTSIDE RECORDS SUMMARY | 2025-05-27 12:17 | XMS_ITS | Encounter Summary ---
Author Organization [facility] Address [address] [place] [address] Care Team Providers Care Concrete Stone Finisher Name Role Phone Casey Dudley MD Primary Care Provider [phone] Encounter Details Date Type Department Care Team (Latest Contact Info) Description 05/29/2005 Inpatient Historical HIS PATIENT IN A BED Amol Sharma MD [address] [place] [address] [place] [address] [place] [address] [place] NOS FIRST EPISODE CARE ([facility]) (Primary Dx) Social History Tobacco Use Types Packs/Day Years Used Date Smoking Tobacco: Never Assessed Comments Unknown Sex and Gender Information Value Date Recorded Sex Assigned at Not on file Legal Sex Female 4:26 AM PROGRESSIVE CARE UNIT REGISTERED NURSE Gender Identity Not on file Sexual Orientation Not on file documented as of this encounter Plan of Treatment Upcoming Encounters Date Type Department Care Team (Late st Contact Info) Description 10/24/2025 10:30 AM CDT Office Visit [facility] Heart and Vascular - [facility] [address] [place] [address] Amol Sharma MD [address] [place] [address] documented as of this encounter [...] ORDERABLES Final Resul t Performing Organization Address [facility] Phone Number INTERFACE SYSTEM Refer to clinic/hospital department * POC GLUCOSE (05/29/2005 8:40 PM CDT) GLUCOSE POC 105 65 - 109 mg/dL INTERFACE SYSTEM 05/29/2005 8:40 PM CDT us Jero Ledesma MD POINT OF CARE TESTING Final Result Performing Organization Address [facility] INTERFACE SYSTEM Refer to clinic/hospital department * [...] ORDERABLES Final Resu lt Performing Organization Address [facility] Number INTERFACE SYSTEM Refer to clinic/hospital department * (ABNORMAL) CK TOTAL, RELATIVE INDEX (05/29/2005 8:15 PM CDT) CARDIAC RELATIVE INDEX 9.8(H) <=4.0 INTERFACE SYSTEM CK 217(H) 10 - 145 U/L INTERFACE SYSTEM 05/29/2005 8:15 PM CDT Result Tavo Sharma MD CHEMISTRY ORDERABLES Final Resul t Performing Organization Address [facility] Phone Number INTERFACE SYSTEM Refer to clinic/hospital department * (ABNORMAL) CKMB W/REFLEX CK (05/29/2005 8:15 PM CDT) CKMB 21.2(AA) <=3.8 ng/mL INTERFACE SYSTEM Comment:Persistent abnormal result CKMB INTERP See Below INTERFAC E SYSTEM Comment:Elevated CKMB,consis tent with Myocardial Injury 05/29/2005 8:15 PM CDT Result [facility] Amol Sharma MD CHEMISTRY ORDERABLES Final Resul t Performing Organization Address [facility] Phone Number INTERFACE SYSTEM Refer to clinic/hospital department * (ABNORMAL) TROPONIN (W/REFLEX CKMB/CK) (05/29/2005 8:15 PM CDT) TROPONIN T 0.55(AA) <=0.03 ng/mL INTERFACE SYSTEM Comment:Persistent abnormal result TROPONIN T INTERP See Below INTERFACE SYSTEM Comment:Elevated Troponin-T, Consistent with Myocardial Injury 05/29/2005 8:15 PM CDT us Amol Sharma MD CHEMISTRY ORDERABLES Final Resul t Performing Organization Address [facility] Phone Number INTERFACE SYSTEM Refer to clinic/hospital department * (ABNORMAL) PTT (05/29/2005 5:40 PM CDT) Pathologist [facility] PTT 55.1(H) 25.0 - 35.0 Seconds INTERFACE SYSTEM Comment: PTT Therapeutic Range: Heparin Level PTT (seconds) <0.10 units/mL <45 0.10 - 0.30 units/mL 45 - 65 0.30 - 0.70 units/mL* 65 - 106* 0.70 - 1.00 units/mL 106 - 137 *corresponds to therapeutic range for unfractionated heparin 05/29/2005 5:40 PM CDT Jero Ledesma MD HEMATOLOGY ORDERABLES Final Result Performing Organization Address [facility] Phone Number INTERFACE SYSTEM Refer to clinic/hospital department * POC ACTIVATED CLOTTING TIME (05/29/2005 2:13 PM CDT) Pathologist [facility] ACT POC 318 Seconds INTERFACE SYSTEM Comment: Normal Donors range 113-149 Non-heparin patients 89-169 ACT value for sheath pull at [facility] has been established to be < or = to 1 70. (See also Nursing Procedures for sheath pull in related nursing areas) 05/29/2005 2:13 PM CDT Jero Ledesma MD POINT OF CARE TESTING Final Result Performing Organization Address [facility] Phone Number INTERFACE SYSTEM Refer to clinic/hospital department * CK TOTAL, RELATIVE INDEX (05/29/2005 11:00 AM CDT) CARDIAC RELATIVE INDEX N/A <=4.0 INTERFACE SYSTEM CK 85 10 - 145 U/L INTERFACE SYSTEM 05/29/2005 11:0 0 AM CDT Meri Dallas MD CHEMISTRY ORDERABLES Final Res ult Performing Organization Address [facility] Phone Number INTERFACE SYSTEM [...] ORDERABLES Final Res ult Performing Organization Address [facility] de Phone Number INTERFACE SYSTEM [...] ORDERABLES Final Res ult Performing Organization Address [facility] Phone Number INTERFACE SYSTEM [...] ORDERABLES Final Re sult Performing Organization Address [facility] Phone Number INTERFACE SYSTEM [...] ORDERABLES Final Re sult Performing Organization Address [facility] Phone Number INTERFACE SYSTEM [...] patients with mechanical heart valves or post [place]. Pediatric (12 years and under): 1.5 - [...] ORDERABLES Final Re sult Performing Organization Address City/[facility] Co de Phone Number INTERFACE SYSTEM Refer to clinic/hospital department documented in this encounter Visit Diagnoses Diagnosis Acute myocardial infarction, unspecified site, initial episode of care- Primary documented in this encounter Care Teams Concrete Stone Finisher Relationship Specialty Start Date End Date Casey Dudley MD PCP - General Family Practice 10/15/11 documented as of this encounter
--- OUTSIDE RECORDS SUMMARY | 2025-05-27 12:18 | XMS_ITS | Encounter Summary ---
Author Organization [facility] Address [address] [place] [address] Care Team Providers Care Hearing Care Professional Name Role Phone Casey Dudley MD Primary Care Provider [phone] Encounter Details Date Type Department Care Team (Late st Contact Info) Description 04/27/2007 Outpatient Historical [facility] [place] [address] [place] [address] Amol Sharma MD [address] [place], [place] [id number] Social History Tobacco Use Types Packs/Day Years Used Date Smoking Tobacco: Never Assessed Comments Unknown Sex and Gender Information Value Date Recorded Sex Assigned at Not on file Legal Sex Female 4:26 AM PODOPEDIATRICIAN Gender Identity Not on file Sexual Orientation Not on file documented as of this encounter Plan of Treatment Upcoming Encounters Date Type Department Care Team (Late st Contact Info) Description 10/24/2025 10:30 AM CDT Office Visit [facility] Heart and Vascular - [facility] [address] [place] [address] Amol Sharma MD [address] [place] [address] documented as of this encounter Visit Diagnoses Not on filedocumented in this encounter Care Teams Hearing Care Professional Relationship Specialty Start Date End Date Casey Dudley MD PCP - General Family Practice 10/15/11 documented as of this encounter
--- OUTSIDE RECORDS SUMMARY | 2025-05-27 12:18 | XMS_ITS | Encounter Summary ---
Author Organization [facility] Address [address] [place] [address] Care Team Providers Care Space And Missile Operations Name Role Phone Casey Dudley MD Primary Care Provider [phone] Encounter Details Date Type Department Care Team (Late Contact Info) Description 01/12/2007 Outpatient Historical [facility] [address] [place] [phone] Dahlia Landon MD [address] [facility] [address] [place], [place] [id number] Social History Tobacco Use Types Packs/Day Years Used Date Smoking Tobacco: Never Assessed Comments Unknown Sex and Gender Information Value Date Recorded Sex Assigned at Not on file Legal Sex Female 4:26 AM COMPOSITOR APPRENTICE Gender Identity Not on file Sexual Orientation Not on file documented as of this encounter Plan of Treatment Upcoming Encounters Date Type Department Care Team (Late st Contact Info) Description 10/24/2025 10:30 AM CDT Office Visit [facility] Heart and Vascular - [facility] [address] [facility] [address] [place] [address] Amol Sharma MD [address] [place], [place] [id number] documented as of this encounter Visit Diagnoses Not on filedocumented in this encounter Care Teams Space And Missile Operations Relationship Specialty Start Date End Date Casey Dudley MD PCP - General Family Practice 10/15/11 documented as of this encounter
--- OUTSIDE RECORDS SUMMARY | 2025-05-27 12:18 | XMS_ITS | Encounter Summary ---
Author Organization [facility] Address [address] [place] [address] Care Team Providers Care In Home Sales Representative Name Role Phone Casey Dudley MD Primary Care Provider [phone] Encounter Details Date Type Department Care Team (Late st Contact Info) Description 05/13/2007 Outpatient Historical [facility] [address] [place] [address] Dahlia Landon MD [address] [facility] [facility] [address] [place], [place] [id number] Social History Tobacco Use Types Packs/Day Years Used Date Smoking Tobacco: Never Assessed Comments Unknown Sex and Gender Information Value Date Recorded Sex Assigned at Not on file Legal Sex Female 4:26 AM CFO Gender Identity Not on file Sexual Orientation Not on file documented as of this encounter Plan of Treatment Upcoming Encounters Date Type Department Care Team (Late st Contact Info) Description 10/24/2025 10:30 AM CDT Office Visit [facility] Heart and Vascular - [facility] [address] [facility] [address] [place] [address] Amol Sharma MD [address] [place] [address] documented as of this encounter Visit Diagnoses Not on filedocumented in this encounter Care Teams In Home Sales Representative Relationship Specialty Start Date End Date Casey Dudley MD PCP - General Family Practice 10/15/11 documented as of this encounter
--- OUTSIDE RECORDS SUMMARY | 2025-05-27 12:18 | XMS_ITS | Encounter Summary ---
Author Organization [facility] Address [address] [place] [address] Care Team Providers Care Lacing Operator Name Role Phone Casey Dudley MD Primary Care Provider [phone] Encounter Details Date Type Department Care Team (Latest Contact Info) Description 09/14/2008 Outpatient Historical HIS CARD CUSTOMER SERVICE OPERATOR Amol Rodriguez MD [place] [address] [facility] [address] [place] [address] Other and Unspecified Angina Pectoris Social History Tobacco Use Types Packs/Day Years Used Date Smoking Tobacco: Never Assessed Comments No Sex and Gender Information Value Date Recorded Sex Assigned at Not on file Legal Sex Female 4:26 AM TANK SETTER Gender Identity Not on file Sexual Orientation Not on file documented as of this encounter Plan of Treatment Upcoming Encounters Date Type Department Care Team (Late st Contact Info) Description 10/24/2025 10:30 AM CDT Office Visit [facility] Heart and Vascular - [facility] [address] [facility] [address] [place] [address] Amol Sharma MD [address] [place] [address] documented as of this encounter Procedures Procedure Name Priority Date/Time Associated Diagnosis Comments CBC WITH DIFFERENTIAL Stat 09/15/2008 11:12 AM TANK SETTER PROTIME-INR Stat 09/15/2008 11:12 AM TANK SETTER BASIC METABOLIC PANEL Stat 09/15/2008 11:12 AM TANK SETTER documented in this encounter Results * PROTIME-INR (09/15/2008 11:12 AM TANK SETTER) PROTIME 13.3 12.7 - 15.1 Seconds [facility] INR 1.0 0.9 - 1.1 [facility] Comment: INR Therapeutic Range: Adult: 2.0 - 3.0 for pulmonary embolism or prophylaxis against venous thrombosis or systemic embolization. 2.0 - 3.0 for patients with tissue heart valves. 2.5 - 3.5 for patients with mechanical heart valves or post [place]. Pediatric (12 years and under): 1.5 - 3.0 Although the target range in children is not well established, INR values of 1.5 - 3.0 are recommended for most patients. Higher values have been used in children with prosthetic cardiac valves and hereditary clotting disorders. Johnson (<3 days) therapeutic ranges have not been established. Blood specimen (specimen) 09/15/2008 11:12 AM TANK SETTER 09/15/2008 11:27 AM TANK SETTER Amol Rodriguez MD HEMATOLOGY ORDERABLES Final Resu lt INTERFACE SYSTEM Refer to clinic/hospital department [facility] CLIA# [id number] [address] [place] [address] * BASIC METABOLIC PANEL (09/15/2008 11:12 AM TANK SETTER) Pathologist [facility] CALCIUM 9.2 8.6 - 10.2 mg/dL [facility] POTASSIUM 4.0 3.5 - 4.9 mmol/L [facility] GLUCOSE 98 65 - 99 mg/dL [facility] BUN 11 6 - 20 mg/dL [facility] CHLORIDE 104 96 - 108 mmol/L [facility] SODIUM 138 135 - 145 mmol/L [facility] CREATININE 0.83 0.51 - 0.95 mg/dL [facility] CO2 28 22 - 30 mmol/L [facility] GFR, >60 >=60 mL/min/1.7 sq meter [facility] GFR >60 >=60 mL/min/1.7 sq meter [facility] Comment: Modification of Diet in Renal Disease (MDRD) study formula. Estimated GFR rate interpretative information for both Americans and non- Americans is available on the [facility] at: [email or web address] Select: Lab Policies and Procedures Select: Reference Ranges - GFR Blood specimen (specimen) 09/15/2008 11:12 AM TANK SETTER 09/15/2008 11:27 AM TANK SETTER Amol Rodriguez MD CHEMISTRY ORDERABLES Edited INTERFACE SYSTEM Refer to clinic/hospital department [facility] CLIA# [id number] [address] [place], [place] [address] * CBC WITH DIFFERENTIAL (09/15/2008 11:12 AM TANK SETTER) MCHC 33.5 31.5 - 35.5 % [facility] MCV 85.8 82.0 - 99.0 fL [facility] PLATELETS 270 140 - 350 K/uL [facility] HEMOGLOBIN 13.2 11.8 - 14.8 g/dL [facility] RDW 13.5 11.5 - 14.5 % [facility] WBC 5.7 4.0 - 9.8 K/uL [facility] MCH 28.8 27.2 - 32.6 pg [facility] MPV 9.7 9.3 - 12.4 fL [facility] HEMATOCRIT 39.4 35.5 - 44.0 % [facility] RDW-STDEV 41.5 37.1 - 48.7 fL [facility] RBC 4.59 3.90 - 4.90 M/uL [facility] NEUTROPHILS 60 45 - 70 % [facility] NEUTROPHIL ABSOLUTE 3.37 1.90 - 7.00 K/uL [facility] EOSINOPHILS 2 0 - 7 % [facility] EOSINOPHIL ABSOLUTE 0.13 0.00 - 0.70 K/uL [facility] LYMPHOCYTES 31 16 - 45 % [facility] LYMPHOCYTE ABSOLUTE 1.76 0.70 - 4.50 K/uL [facility] BASOPHILS 1 0 - 2 % [facility] BASOPHILS ABSOLUTE 0.03 0.00 - 0.20 K/uL [facility] MONOCYTES 7 3 - 13 % [facility] MONOCYTE ABSOLUTE 0.37 0.10 - 1.30 K/uL [facility] Blood specimen (specimen) 09/15/2008 11:12 AM TANK SETTER 09/15/2008 11:27 AM TANK SETTER Amol Rodriguez MD HEMATOLOGY ORDERABLES Edited INTERFACE SYSTEM Refer to clinic/hospital department [facility] CLIA# [id number] [address] [place] [address] documented in this encounter Visit Diagnoses Diagnosis Other and unspecified angina pectoris documented in this encounter Care Teams Lacing Operator Relationship Specialty Start Date End Date Casey Dudley MD PCP - General Family Practice 10/15/11 documented as of this encounter
--- OUTSIDE RECORDS SUMMARY | 2025-05-27 12:18 | XMS_ITS | Encounter Summary ---
Author Organization [facility] Address [address] [place] [address] Care Team Providers Care Ripsaw Operator Name Role Phone Casey Dudley MD Primary Care Provider [phone] Encounter Details Date Type Department Care Team (Latest Contact Info) Description 06/21/2005 Outpatient Historical HIS PATIENT IN A BED Miky Godwin MD [address] [place] [address] ABNORMAL FIND-BILIARY TRACT (Primary Dx) Social History Tobacco Use Types Packs/Day Years Used Date Smoking Tobacco: Never Assessed Comments Unknown Sex and Gender Information Value Date Recorded Sex Assigned at Not on file Legal Sex Female 4:26 AM HEALTHCARE BUSINESS ANALYST Gender Identity Not on file Sexual Orientation Not on file documented as of this encounter Plan of Treatment Upcoming Encounters Date Type Department Care Team (Late st Contact Info) Description 10/24/2025 10:30 AM CDT Office Visit [facility] Heart and Vascular - [facility] [address] [facility] [address] [place] [address] Amol Sharma MD [address] [facility] [address] [place] [address] documented as of this encounter Procedures Procedure Name Priority Date/Time Associated Diagnosis Comments CBC WITH DIFFERENTIAL Routine 06/21/2005 8:55 AM HEALTHCARE BUSINESS ANALYST CBC WITH DIFFERENTIAL Routine 06/21/2005 8:55 AM HEALTHCARE BUSINESS ANALYST COMPREHENSIVE METABOLIC PANEL Routine 06/21/2005 8:55 AM HEALTHCARE BUSINESS ANALYST documented in this encounter Results * CBC WITH DIFFERENTIAL (06/21/2005 8:55 AM HEALTHCARE BUSINESS ANALYST) NEUTROPHILS 58 45 - 70 % INTERFAC [...] 0.20 K/uL INTERFACE SYSTEM 06/21/2005 8:55 AM HEALTHCARE BUSINESS ANALYST us Miky Godwin MD HEMATOLOGY ORDERABLES Final R esult Performing Organization Address City/[facility] Co de Phone Number INTERFACE SYSTEM Refer to clinic/hospital department * CBC WITH DIFFERENTIAL (06/21/2005 8:55 AM HEALTHCARE BUSINESS ANALYST) WBC 5.5 4.0 - 9.8 K/uL INTERFACE [...] 12.4 fL INTERFACE SYSTEM 06/21/2005 8:55 AM HEALTHCARE BUSINESS ANALYST us Miky Godwin MD HEMATOLOGY ORDERABLES Final R esult Performing Organization Address City/[facility]/ZIP Co de Phone Number INTERFACE SYSTEM Refer to clinic/hospital department * (ABNORMAL) COMPREHENSIVE METABOLIC PANEL (06/21/2005 8:55 AM HEALTHCARE BUSINESS ANALYST) GLUCOSE 115(H) 65 - 109 mg/dL INTERFACE [...] 30 mmol/L INTERFACE SYSTEM 06/21/2005 8:55 AM HEALTHCARE BUSINESS ANALYST us Miky Godwin MD CHEMISTRY ORDERABLES Final Re sult INTERFACE SYSTEM Refer to clinic/hospital department documented in this encounter Visit Diagnoses Diagnosis Nonspecific (abnormal) findings on radiological and other examination of biliary tract- Primary documented in this encounter Care Teams Ripsaw Operator Relationship Specialty Start Date End Date Casey Dudley MD PCP - General Family Practice 10/15/11 documented as of this encounter
--- OUTSIDE RECORDS SUMMARY | 2025-05-27 12:18 | XMS_ITS | Encounter Summary ---
Author Organization [facility] Address [address] [place] [address] Care Team Providers Care Racking Machine Operator Name Role Phone Casey Dudley MD Primary Care Provider [phone] Encounter Details Date Type Department Care Team (Late st Contact Info) Description 04/02/2006 Outpatient Historical [facility] [place] [id number] [facility] [place] [address] Amol Sharma MD [address] [place], [place] [id number] Social History Tobacco Use Types Packs/Day Years Used Date Smoking Tobacco: Never Assessed Comments Unknown Sex and Gender Information Value Date Recorded Sex Assigned at Not on file Legal Sex Female 4:26 AM DIGITAL MUSIC INSTRUCTOR Gender Identity Not on file Sexual Orientation Not on file documented as of this encounter Plan of Treatment Upcoming Encounters Date Type Department Care Team (Late st Contact Info) Description 10/24/2025 10:30 AM CDT Office Visit [facility] Heart and Vascular - [facility] [address] [place] [address] Amol Sharma MD [address] [place] [address] documented as of this encounter Visit Diagnoses Not on filedocumented in this encounter Care Teams Racking Machine Operator Relationship Specialty Start Date End Date Casey Dudley MD PCP - General Family Practice 10/15/11 documented as of this encounter
--- OUTSIDE RECORDS SUMMARY | 2025-05-27 12:18 | XMS_ITS | Encounter Summary ---
Author Organization Address [address] [place] [address] Care Team Providers Care Garment Mender Name Role Phone Casey Dudley MD Primary Care Provider [phone] Encounter Details Date Type Department Care Team (Late st Contact Info) Description 06/13/2005 Outpatient Historical [facility] [address] [place] [address] Amol Sharma MD [address] [place] [address] Social History Tobacco Use Types Packs/Day Years Used Date Smoking Tobacco: Never Assessed Comments Unknown Sex and Gender Information Value Date Recorded Sex Assigned at Not on file Legal Sex Female 4:26 AM ULTRASOUND TECHNOL Gender Identity Not on file Sexual Orientation Not on file documented as of this encounter Plan of Treatment Upcoming Encounters Date Type Department Care Team (Late st Contact Info) Description 10/24/2025 10:30 AM CDT Office Visit [facility] Heart and Vascular - [facility] [address] [place] [address] [address] [place] [address] Amol Sharma MD [address] [place] [address] documented as of this encounter Visit Diagnoses Not on filedocumented in this encounter Care Teams Garment Mender Relationship Specialty Start Date End Date Casey Dudley MD PCP - General Family Practice 10/15/11 documented as of this encounter
--- OUTSIDE RECORDS SUMMARY | 2025-05-27 12:18 | XMS_ITS | Encounter Summary ---
Author Organization [facility] Address [address] [place] [address] Care Team Providers Care Optometric Technologist Name Role Phone Casey Dudley MD Primary Care Provider [phone] Encounter Details Date Type Department Care Team (Late st Contact Info) Description 11/06/2005 Outpatient Historical [facility] [address] [place] [phone] Dahlia Landon MD [address] [place], [place] [id number] Social History Tobacco Use Types Packs/Day Years Used Date Smoking Tobacco: Never Assessed Comments Unknown Sex and Gender Information Value Date Recorded Sex Assigned at Not on file Legal Sex Female 4:26 AM MAIL TECHNICIAN Gender Identity Not on file Sexual Orientation Not on file documented as of this encounter Plan of Treatment Upcoming Encounters Date Type Department Care Team (Late st Contact Info) Description 10/24/2025 10:30 AM CDT Office Visit [facility] Heart and Vascular - [facility] [address] [facility] [address] [place] [address] Amol Sharma MD [address] [place] [address] documented as of this encounter Visit Diagnoses Not on filedocumented in this encounter Care Teams Optometric Technologist Relationship Specialty Start Date End Date Casey Dudley MD PCP - General Family Practice 10/15/11 documented as of this encounter
--- OUTSIDE RECORDS SUMMARY | 2025-05-27 12:18 | XMS_ITS | Encounter Summary ---
Author Organization [facility] Address [address] [place] [address] Care Team Providers Care Other Sales Support Worker Name Role Phone Casey Dudley MD Primary Care Provider [phone] Encounter Details Date Type Department Care Team (Late st Contact Info) Description 03/26/2006 Outpatient Historical [facility] [place] [id number] [facility] [place] [address] Amol Sharma MD [address] [place], [place] [id number] Social History Tobacco Use Types Packs/Day Years Used Date Smoking Tobacco: Never Assessed Comments Unknown Sex and Gender Information Value Date Recorded Sex Assigned at Not on file Legal Sex Female 4:26 AM HEAD ESTHETICIAN Gender Identity Not on file Sexual Orientation Not on file documented as of this encounter Plan of Treatment Upcoming Encounters Date Type Department Care Team (Late st Contact Info) Description 10/24/2025 10:30 AM CDT Office Visit [facility] Heart and Vascular - [facility] [address] [place] [address] Amol Sharma MD [address] [place] [address] documented as of this encounter Visit Diagnoses Not on filedocumented in this encounter Care Teams Other Sales Support Worker Relationship Specialty Start Date End Date Casey Dudley MD PCP - General Family Practice 10/15/11 documented as of this encounter
--- OUTSIDE RECORDS SUMMARY | 2025-05-27 12:18 | XMS_ITS | Clinical Summary ---
Author Organization [facility] Address [address] [place] [address] Care Team Providers Care Dials Inspector Name Role Phone Casey Dudley MD Primary Care Provider [phone] Allergies No known active allergies Medications ASPIRIN 81 mg Oral Tab Take 81 mg by mouth daily. Active ZOVIRAX 5 % Topical Oint Apply to affected area see administration instructions. Po BID prn x 5 days 3 Gram 1 08/24/19 10 Active MULTIVITAMIN ORAL Take by mouth. Active OMEPRAZOLE ORAL Take 20 mg by mouth daily . Active OTHER Take 375 mg by mouth daily Provider please include Medication name, dose, route and frequency . Active OTHER Actalin take 1 tablet bid . Active enalapril (VASOTEC) 5 mg tablet TAKE 1 TABLET BY MOUTH DAILY 90 Tablet 3 08/25/19 20 Active diltiaZEM (diltiazem sr) 240 mg Extended Release capsule TAKE ONE CAPSULE BY MOUTH EVERY DAY 90 Capsule 2 05/17/20 20 Active gabapentin (NEURONTIN) 600 mg tablet Take 900 mg by mouth 3 times daily. 04/26/20 24 Active atorvastatin (LIPITOR) 40 mg tabletIndications: Mixed hyperlipidemia Take 1 Tablet (40 mg) by mouth daily. 100 Tablet 3 01/11/20 25 Active Active Problems Patient Care Coordination No te Formatting of this note migh t be different from the original. Gill Tender- Dr. Zachary Bonds Office Problem Noted Date Diagnosed Date Old CO (myocardial infarction) 02/27/2020 Overview (10/18/2024): MIs with [...] Encounters Date Type Department Care Team Description 04/18/2025 External Device Data STL ABSTRACTION Provider, Abstract 03/29/2025 External Device Data STL ABSTRACTION Provider, Abstract from Last 3 Months Family History Medical [...] on file Legal Sex Female 4:26 AM WHARF TENDER Gender Identity Not on file Sexual Orientation [...] 11:04 AM CDT Height 172.7 cm (5' 8) 10/18/2024 11:04 AM CDT Body Mass Index 30.41 10/18/2024 11:04 AM CDT Plan of Treatment Upcoming Encounters Date Type Department Care Team (Late st Contact Info) Description 10/24/2025 10:30 AM CDT Office Visit [facility] Heart and Vascular - [facility] [address] [place] [address] Amol Sharma MD [address] [place] [address] Health Maintenance Due Date Last Done Comments [...] 10/22/2007, 10/04/19 08 Colorectal Cancer Screening 10/21/2017 OSTEOPOROSIS SCREENING 2018 08/24/2009 INFLUENZA VACCINE (#1) 2025 9, 05/29/2017, 08/06/2015 DIABETES HBA1C Q 6 MONTHS 07/11/2025 01/09/2025, LDL CHOLESTEROL ANNUAL 01/09/2026 5, 01/24/2020, 01/24/2020, Additional history exists RSV VACCINE (60+ or ) (1 - 1-dose 75+ series) 2028 Procedures Procedure Name Priority Date/Time Associated Diagnosis Comments LIPID PANEL Routine 01/09/2025 9:43 AM CDT Hyperlipidemia HEMOGLOBIN A1C Routine 01/09/2025 9:43 AM CDT Hyperlipidemia MAMMO SCREEN BILAT W OR WO CAD Routine 09/30/2013 Screening breast examination POC OCCULT BLOOD 1 CARD Routine 10/15/2011 Well woman exam with routine gynecological exam XR DEXA BONE DENSITY AXIAL 1 OR MORE SITES Routine 08/24/2009 11:34 AM WHARF TENDER Well Woman Exam with Routine Gynecological Exam HX COLONOSCOPY Routine 10/22/2007 from Last 3 Months or Most Recently Relevant to Health Maintenance Results * (ABNORMAL) HEMOGLOBIN A1C (01/09/2025 9:43 AM CDT) HEMOGLOBIN A1C 5.9(H) <5.7 % of total Hgb [facility] Comment: For someone without known diabetes, a hemoglobin A1c value between 5.7% and 6.4% is consistent with prediabetes and should be confirmed with a follow-up test. For someone with known diabetes, a value <7% indicates that their diabetes is well controlled. A1c targets should be individualized based on duration of diabetes, age, comorbid conditions, and other considerations. This assay result is consistent with an increased risk of diabetes. Currently, no consensus exists regarding use of hemoglobin A1c for diagnosis of diabetes for children. ESTIMATED AVERAGE GLUCOSE (MG/DL) 123 mg/dL [facility] ESTIMATED AVERAGE GLUCOSE (MMOL/L) 6.8 mmol/L [facility] Comment: FASTING:YES FASTING: YES Test Performed at: [facility] [address] [place] [address] Velasquez Garcia Vo Blood 01/09/2025 9:43 AM CDT 01/09/2025 9:44 AM CDT us Amol Sharma MD CHEMISTRY ORDERABLES Final Resul t [facility] [phone] [facility] [place] [address] [address] [place] [phone] * (ABNORMAL) LIPID PANEL (01/09/2025 9:43 AM CDT) CHOLESTEROL 182 <200 mg/dL [facility] HDL 56 > OR = 50 mg/dL [facility] TRIGLYCERIDE 82 <150 mg/dL [facility] LDL CALCULATED 109(H) mg/dL (calc) [facility] Comment: Reference range: <100 Desirable range <100 mg/dL for primary prevention; <70 mg/dL for patients with CHD or diabetic patients with > or = 2 CHD risk factors. LDL-C is now calculated using the Alexi calculation, which is a validated novel method providing better accuracy than the Friedewald equation in the estimation of LDL-C. Dangelo SS et al. OLGA. 2013;310(19): 2674-4834 (http://education.[employer]/faq/MBK653) CHOL/HDL RATIO 3.3 <5.0 (calc) [facility] NON-HDL CHOLESTEROL 126 <130 mg/dL (calc) [facility] Comment: For patients with diabetes plus 1 major ASCVD risk factor, treating to a non-HDL-C goal of <100 mg/dL (LDL-C of <70 mg/dL) is considered a therapeutic option. [facility] [address] [facility] [address] [place] [address] Blood 01/09/2025 9:43 AM CDT 01/09/2025 9:44 AM CDT us Amol Sharma MD CHEMISTRY ORDERABLES Final Resul t [facility] [phone] [facility] [address] [place] [address] * MAMMO DIGITAL SCREEN BILAT (09/30/2013) Anatomical Region Laterality Modality Breast Bilateral Other us Dahlia Landon MD MAMMO ORDERABLES Final Result * POC OCCULT BLOOD 1 CARD (10/15/2011) OCCULT BLOOD #1 Negative [facility] Stool specimen (specimen) us Nadeen Paige Shen VIDEOTAPE EDITOR POINT OF CARE TESTING Final Result [facility] * XR DEXA BONE DENSITY AXIAL 1 OR MORE SITES (08/24/2009 11:34 AM WHARF TENDER) Anatomical Region Laterality Modality Digital Radiogra phy 08/24/2009 11:3 4 AM WHARF TENDER Narrative 08/24/2009 11:37 AM WHARF TENDER BONE MINERAL DENSITY (DEXA) HISTORY: 54 year old female with postmenopausal symptoms needing evaluation for osteoporosis. PROCEDURE: Using a [employer] iDXA dual energy x-ray absorptiometry system, the patient's [...] are available for comparison. Procedure Note Talib Talbert, DO - 08/24/2009 BONE MINERAL DENSITY (DEXA) HISTORY: 54 year old female with postmenopausal symptoms needing evaluation forosteoporosis. PROCEDURE: Using a [employer] iDXA dual energy x-ray absorptiometry system, thepatient's bone [...] Landon MD GENERIC SURGICAL HISTORY Final Result [facility] from Last 3 Months or Most Recently Relevant to Health Maintenance Insurance O MCR Care Teams Dials Inspector Relationship Specialty Start Date End Date Casey Dudley MD PCP - General Family Practice 10/15/11
--- OUTSIDE RECORDS SUMMARY | 2025-05-27 12:18 | XMS_ITS | Encounter Summary ---
Author Organization [facility] Address [address] [place] [address] Care Team Providers Care Early Childhood Name Role Phone Casey Dudley MD Primary Care Provider Encounter Details Date Type Department Care Team (Late st Contact Info) Description 07/01/2005 Outpatient Historical [facility] [address] [place] [address] Amol Rodriguez MD NO ADDRESS ON FILE Social History Tobacco Use Types Packs/Day Years Used Date Smoking Tobacco: Never Assessed Comments Unknown Sex and Gender Information Value Date Recorded Sex Assigned at Not on file Legal Sex Female 4:26 AM TRAVERTINE INSTALLER Gender Identity Not on file Sexual Orientation Not on file documented as of this encounter Plan of Treatment Upcoming Encounters Date Type Department Care Team (Late st Contact Info) Description 10/24/2025 10:30 AM CDT Office Visit [facility] Heart and Vascular - [facility] [address] [place] [address] [address] [place] [address] Amol Sharma MD [facility] [address] [place] [address] documented as of this encounter Visit Diagnoses Not on filedocumented in this encounter Care Teams Early Childhood Relationship Specialty Start Date End Date Casey Dudley MD PCP - General Family Practice 10/15/11 documented as of this encounter
--- OUTSIDE RECORDS SUMMARY | 2025-05-27 12:18 | XMS_ITS | Encounter Summary ---
Author Organization [facility] Address [address] [place] [address] Care Team Providers Care Bass Singer Name Role Phone Casey Dudley MD Primary Care Provider [phone] Encounter Details Date Type Department Care Team (Late st Contact Info) Description 06/12/2005 Outpatient Historical [facility] Support [facility]. ([facility]t Cardiology[facility]) [address] [place] [address] Brandon Flowers MD [address] [place] [phone] Social History Tobacco Use Types Packs/Day Years Used Date Smoking Tobacco: Never Assessed Comments Unknown Sex and Gender Information Value Date Recorded Sex Assigned at Not on file Legal Sex Female 4:26 AM REFERRAL NURSE Gender Identity Not on file Sexual Orientation Not on file documented as of this encounter Plan of Treatment Upcoming Encounters Date Type Department Care Team (Late st Contact Info) Description 10/24/2025 10:30 AM CDT Office Visit [facility] Heart and Vascular - [facility] [address] [facility] [address] [place] [address] Amol Sharma MD [address] [facility] [address] [place] [address] documented as of this encounter Visit Diagnoses Not on filedocumented in this encounter Care Teams Bass Singer Relationship Specialty Start Date End Date Casey Dudley MD PCP - General Family Practice 10/15/11 documented as of this encounter
--- OUTSIDE RECORDS SUMMARY | 2025-05-27 12:18 | XMS_ITS | Encounter Summary ---
Author Organization [facility] Address [address] [place] [address] Care Team Providers Care Pbx Operator Name Role Phone Casey Dudley MD Primary Care Provider [phone] Encounter Details Date Type Department Care Team (Late Contact Info) Description 12/10/2006 Outpatient Historical [facility] [address] [place] [address] Dahlia Landon MD [address] [facility] [address] [place], [place] [id number] Social History Tobacco Use Types Packs/Day Years Used Date Smoking Tobacco: Never Assessed Comments Unknown Sex and Gender Information Value Date Recorded Sex Assigned at Not on file Legal Sex Female 4:26 AM COTTRELL BLOWER Gender Identity Not on file Sexual Orientation Not on file documented as of this encounter Plan of Treatment Upcoming Encounters Date Type Department Care Team (Late st Contact Info) Description 10/24/2025 10:30 AM CDT Office Visit [facility] Heart and Vascular - [facility] [address] [facility] [address] [place] [address] Amol Sharma MD [address] [facility] [address] [place] [address] documented as of this encounter Visit Diagnoses Not on filedocumented in this encounter Care Teams Pbx Operator Relationship Specialty Start Date End Date Casey Dudley MD PCP - General Family Practice 10/15/11 documented as of this encounter
--- OUTSIDE RECORDS SUMMARY | 2025-05-27 12:18 | XMS_ITS | Encounter Summary ---
Author Organization [facility] Address [address] [place] [address] Care Team Providers Care Quantometer Operator Name Role Phone Casey Dudley MD Primary Care Provider [phone] Encounter Details Date Type Department Care Team (Latest Contact Info) Description 08/21/2008 Outpatient Historical [facility] [address] [place] [address] [address] [place] [address] Amol Sharma MD [address] [place] [address] Cor Athrscl-Uns Vessel; AMI NOS, Unspecified (CMS/[facility]) Social History Tobacco Use Types Packs/Day Years Used Date Smoking Tobacco: Never Assessed Comments No Sex and Gender Information Value Date Recorded Sex Assigned at Not on file 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 Gender Identity Not on file Sexual Orientation Not on file documented as of this encounter Plan of Treatment Upcoming Encounters Date Type Department Care Team (Late st Contact Info) Description 10/24/2025 10:30 AM CDT Office Visit [facility] [address] [place] [address] Amol Sharma MD [address] [facility] [address] [place] [address] documented as of this encounter Visit Diagnoses Diagnosis Coronary atherosclerosis of unspecified type of vessel, rosebud or graft Acute myocardial infarction, unspecified site, episode of care unspecified documented in this encounter Care Teams Quantometer Operator Relationship Specialty Start Date End Date Casey Dudley MD PCP - General Family Practice 10/15/11 documented as of this encounter
--- OUTSIDE RECORDS SUMMARY | 2025-05-27 12:18 | XMS_ITS | Encounter Summary ---
Author Organization [facility] Address [address] [place] [address] Care Team Providers Care Machine Puller Over Name Role Phone Casey Dudley MD Primary Care Provider [phone] Encounter Details Date Type Department Care Team (Late Contact Info) Description 04/27/2007 Outpatient Historical [facility] [address] [facility] [address] [place] [phone] Dahlia Landon MD [address] [place], [place] [id number] Social History Tobacco Use Types Packs/Day Years Used Date Smoking Tobacco: Never Assessed Comments Unknown Sex and Gender Information Value Date Recorded Sex Assigned at Not on file 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 Gender Identity Not on file Sexual Orientation Not on file documented as of this encounter Plan of Treatment Upcoming Encounters Date Type Department Care Team (Late st Contact Info) Description 10/24/2025 10:30 AM CDT Office Visit [facility] Heart and Vascular - [facility] [address] [facility] [address] [place] [address] Amol Sharma MD [address] [facility] [address] [place] [address] documented as of this encounter Visit Diagnoses Not on filedocumented in this encounter Care Teams Machine Puller Over Relationship Specialty Start Date End Date Casey Dudley MD PCP - General Family Practice 10/15/11 documented as of this encounter
[2025-05-27 12:52] LABS: Add Urine Microscopic? YES; Appearance Urine Cloudy (Clear); Glucose Urine UA Negative (Negative); Leukocyte Esterase Ur 3+ LEU/UL (Negative); Nitrate Urine Negative (Negative); Non Pathogenic Casts 0-2; Specific Grav Ur 1.011 (1.001-1.035)
== END 2025-05-27 12:15 | disposition home or self-care (01) ==
PROVIDERS: PCP Family Medicine
DX: R39.15 Urgency of urination (principal)
CPT/HCPCS: 81001; 87086; 87147; 87186